=== PATIENT | male | born 1950 | race Caucasian/White ===

== ENCOUNTER → 2019-07-04 10:16 | Outpatient (CLI) | payer MEDICARE, SELFPAY ==
--- NOTE | 2019-07-04 | DI.US.S_ITS ---
PROCEDURE: US ARTERIAL DUPLEX LE BI INDICATIONS: INTERMITTENT CLAUDICATION, ATHEROSCLEROSIS TECHNIQUE: Color and pulse Doppler interrogation was performed of both lower extremity arterial systems, with image documentation. COMPARISON: None. FINDINGS: Right lower extremity: Common femoral artery: 47 cm/sec, with triphasic flow. Deep femoral artery: 157 cm/sec, with monophasic flow. Proximal superficial femoral artery: 49 cm/sec, with biphasic flow. Mid superficial femoral artery: 256 cm/sec, with biphasic flow. Distal superficial femoral artery: 31 cm/sec, with a triphasic flow. Popliteal artery: 38-50 cm/sec, with triphasic flow. Posterior tibial artery: 48-60 cm/sec, with triphasic flow. Anterior tibial artery/dorsalis pedis: 58-71 cm/sec, with triphasic flow. Ulloa-scale imaging description: Mild calcific and soft plaque most prominent at the middle third of the superficial femoral artery on the right. Left lower extremity: Common femoral artery: 312 cm/sec, with monophasic flow. Deep femoral artery: 54 cm/sec, with monophasic flow. Proximal superficial femoral artery: 47 cm/sec, with monophasic flow. Mid superficial femoral artery: 53 cm/sec, with monophasic flow. Distal superficial femoral artery: 29 cm/sec, with monophasic flow. Popliteal artery: 63-226 cm/sec, with monophasic flow. Posterior tibial artery: 30-38 cm/sec, with monophasic flow. Anterior tibial artery/dorsalis pedis: 15-35 cm/sec, with monophasic flow. Ulloa-scale imaging description: Significant soft plaque, most prominent at the proximal popliteal artery on the left. IMPRESSION: Atherosclerotic plaquing on the right is most prominent at the middle third of the superficial femoral artery producing elevated flow velocities up to 2 56 cm/s, biphasic flow morphology. In contrast, on the left, there is prominent elevated flow velocity at the common femoral artery with monophasic flow, and extending below that level monophasic flow persists. 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 The monophasic flow velocities increase focally at proximal aspect of the left popliteal artery, indicating focal high grade stenosis in that area. Depending on clinical status followup by MR angiogram through the aorta and iliac arteries and extending into the lower extremities bilaterally may be warranted, if intervention is anticipated. Dictated by: Riaz San M.D. on 07/04/2019 at 13:35 Approved by: Riaz San M.D. on 07/04/2019 at 13:42
== END ==
PROVIDERS: PCP Family Medicine; Visit Provider Family Medicine
DX: I70.213 Atherosclerosis of native arteries of extremities with intermittent claudication, bilateral legs (principal)
CPT/HCPCS: 93925

== ENCOUNTER 2020-06-21 15:01 | Inpatient (IN) | payer MEDICARE, SELFPAY ==
[2020-06-21] VITALS (12 sets, daily range): BP systolic 129–147; BP diastolic 60–84; PULSE 82–92; RESP 14–24; TEMP 36.7–37.1; O2SAT 100; BMI 25.4
--- NOTE | 2020-06-21 15:20 | DI.RAD.S_ITS ---
PROCEDURE: XR CHEST 1V INDICATIONS: chest pain TECHNIQUE: One view of the chest was acquired. COMPARISON: None. FINDINGS: Surgical changes and devices: None. Lungs and pleura: Lungs are clear. No pleural effusions or pneumothorax. Mediastinum: Mediastinal contours appear normal. Heart size is normal. Bones and chest wall: No suspicious bony lesions. Overlying soft tissues appear unremarkable. IMPRESSION: No acute process. Dictated by: Jnais Martins M.D. on 06/21/2020 at 15:52 Approved by: Janis Martins M.D. on 06/21/2020 at 15:52
--- NOTE | 2020-06-21 15:29 | ED_ITS ---
HPI - Recheck/Abnormal Lab/Rx <TERRY Goddard - Last Filed: 06/21/20 22:43> General Chief Complaint: Recheck/Abnormal Lab/Rx Stated Complaint: needs blood transfusion Time Seen by Provider: 06/21/20 15:08 Source: patient Mode of arrival: Ambulatory Limitations: no limitations History of Present Illness HPI narrative: This is a 70-year-old male, smoker, who has history of GI bleed, diabetes, hyperlipidemia and takes Plavix and baby aspirin for lower extremity arterial problem presents to ED after he received a phone call from Dr. Devine office in [facility] to going to emergency room for an evaluation and treatment for anemia. Patient reports he had dark, tarry stools which started the days ago which has slowed down today. Reports dizziness and shakiness 2 days ago when he tried to shower. Reports has been tired and feeling fatigued as well. Reports had some right-sided chest discomfort at last 2 nights during rest and denies pain at this time. He had similar discomfort when he had anemia past. Reports had colonoscopy 1 year ago in [place] at [facility]. Patient denies abdominal pain or dyspnea. Patient had left lower extremity stent in October without complications. According to patient, last colonoscopy was 1 year ago which was done at [facility] in [place] by Dr. Walker. He was told there was a GI bleed in upper colon. Requested EHR from [facility] on previous colonoscopy procedure and findings. Related Data Home Medications Medication Instructions Recorded Confirmed [place] Essentials 1 cap PO DAILY 06/21/20 06/23/20 atorvastatin 10 mg PO DAILY 06/21/20 06/21/20 clopidogrel 75 mg PO DAILY 06/21/20 06/21/20 metformin 500 mg PO DAILY 06/21/20 06/21/20 varenicline [Chantix] 1 mg PO BID 06/21/20 06/21/20 Allergies Allergy/AdvReac Type Severity Reaction Status Date / Time No Known Drug Allergies Allergy Verified 06/22/20 12:39 Review of Systems <TERRY Goddard - Last Filed: 06/21/20 22:43> Review of Systems Narrative: General: Denies fever, chills, (+) fatigue, (+) malaise, sweats. HEENT: Denies sinus pain, ear pain, sore throat, difficulty swallowing. Respiratory: Denies dyspnea, cough, wheezing, hemoptysis, sputum. Cardiovascular: HPI Gastrointestinal: See HPI : Denies dysuria, frequency, incontinence, hematuria, urinary retention. Musculoskeletal: Denies weakness, joint pain or bony pain. Skin: Denies rash, skin lesions, or other. Neurologic: Denies weakness, headache, numbness, change in speech, confusion, seizures, incoordination. Psychiatric: No concerning psychosocial issues. 12-point review of systems is negative except for those stated above. Patient History <TERRY Goddard - Last Filed: 06/21/20 22:43> Medical History (Updated 06/22/20 @ 00:45 by Ellie Perez MD) Alcohol dependence (Chronic) Angiodysplasia of colon (Acute) Arterial insufficiency (Chronic) Benign neoplasm of ascending colon (Acute) Benign neoplasm of cecum (Acute) Diverticulosis (Acute) GI bleed (Acute) Hemorrhoids (Acute) Melena (Acute) Rectal bleed (Acute) Rectal polyp (Acute) Tobacco dependence (Chronic) Surgical History (Updated 06/21/20 @ 22:32 by TERRY Barajas) H/O colonoscopy (Acute) H/O endoscopy (Acute) History of back surgery (Acute) History of knee replacement (Acute) History of shoulder surgery (Acute) Peripheral vascular angioplasty status with implants and grafts (Chronic) Family History (Updated 06/21/20 @ 22:31 by TERRY Barajas) Father CVA (cerebral vascular accident) Myocardial infarct Mother Diabetes mellitus Social History household members: spouse Smoking Status: Current every day smoker Smoking Status: Current every day smoker tobacco type: cigarettes alcohol intake frequency: 0-2 drinks per day Substance Use Type: does not use Exam <TERRY Goddard - Last Filed: 06/21/20 22:43> Narrative Exam Narrative: GEN: Alert, oriented x 3, well appearing and nourished, and in no acute distress. Head: Normal cephalic, atraumatic. No scalp or temporal tenderness, palpable mass or rash. EYES: Pupils are equal, round, and reactive to light and accommodation. Extraocular muscles are intact bilaterally. There is no subconjunctival hemorrhage, exudate and sclera non-icteric. Pale palpebral conjunctiva. ENT: Hearing grossly intact. Nose without bleeding, purulent discharge or deviation. Mucous membrane moist, pale, no mucosal lesion. Throat without erythema, tonsillar hypertrophy or exudate. Uvula in midline, airway patent. Neck: Trachea in midline. No JVD, non-tender without lymphadenopathy. No masses or thyroid megaly. Supple, non-tender and no meningeal signs. CARDIAC: Normal regular rate and rhythm with murmurs. No gallops, or rubs. No chest wall tenderness. No peripheral edema, cyanosis or pallor. Capillary refill is less than 2 seconds. RESPIRATORY: Faint expiratory wheezing in right lobes. Occasional moist cough. No rales, or rhonchi. No stridor, respiratory distress, increase work of damion thing, or accessary muscle used. ABD: Abdomen soft, nontender and non-distended. No guarding or rebound tenderness to palpate. Bowel sounds are normal in all 4 quadrants. There is no palpable masses or organomegaly. EXT: Full painless ROM of all extremities with no loss of sensation, strength, effusion or edema. SKIN: Warm, dry, pale. No erythema, lesions or rash over visible areas. BACK: Nontender without deformity or crepitance. No flank tenderness. NEUROLOGICAL: Alert and oriented to place, time and person. Sensation and motor function intact bilaterally. No facial droops, dysphasia. PSYCHIATRIC: Good judgement and reason, without hallucinations, abnormal affect or abnormal behaviors during the examination. Patient is not suicidal. Initial Vital Signs Initial Vital Signs: Vital Signs Temperature 98.7 F 06/21/20 15:18 Pulse Rate 92 H 06/21/20 15:18 Respiratory Rate 16 06/21/20 15:18 Blood Pressure 139/66 06/21/20 15:18 Pulse Oximetry 100 06/21/20 15:18 <Danelle Portillo DO - Last Filed: 06/23/20 08:30> Initial Vital Signs Initial Vital Signs: Vital Signs Temperature 98.7 F 06/21/20 15:18 Pulse Rate 92 H 06/21/20 15:18 Respiratory Rate 16 06/21/20 15:18 Blood Pressure 139/66 06/21/20 15:18 Pulse Oximetry 100 06/21/20 15:18 Scores <TERRY Goddard - Last Filed: 06/21/20 22:43> GCS [place] coma scale eye opening: Spontaneous [place] coma scale verbal response: Orientated [place] coma scale motor response: Obey commands Regan coma scale total score: 15 Course <Darren DavisTERRY - Last Filed: 06/21/20 22:43> Course Course Narrative: Received critical result on H&H=4.6/15.6. Added 2 PRBC tra nsfusion order. Positive hemoccult Decision to Admit Date: 06/21/20 Decision to Admit time: 15:46 Orders Ordered: Acetaminophen (Tylenol) 650 mg PO Q6HR PRN PRN Reason: Fever/Mild Pain (1-3) Last Admin: 06/23/20 07:02 Dose: 650 mg Documented by: Admin: 06/22/20 21:21 Dose: 650 mg Documented by: IFTIKHAR Al Hydrox/Mg Hydrox/Simethicone (Maalox Plus) 30 ml PO Q6HR PRN PRN Reason: Dyspepsia Amoxicillin (Trimox) 1,000 mg PO BID [facility] Last Admin: 06/22/20 21:21 Dose: 1,000 mg Documented by: IFTIKHAR Benzocaine (Cepacol Lozenge) 1 each PO Q1HR PRN PRN Reason: Sore Throat Last Admin: 06/22/20 23:39 Dose: 1 each Documented by: Admin: 06/22/20 21:21 Dose: 1 each Documented by: Admin: 06/22/20 19:24 Dose: 1 each Documented by: IFTIKHAR Calcium Carbonate (Tums) 1,000 mg PO Q4HR PRN PRN Reason: Dyspepsia Clarithromycin (Biaxin) 500 mg PO BID [facility] Last Admin: 06/22/20 21:22 Dose: Not Given Documented by: IFTIKHAR Dextrose (D50w) 25 gm IV PRN PRN PRN Reason: Hypoglycemia Sodium Chloride (Normal Saline 0.9%) 1,000 mls @ 84 mls/hr IV CONT [facility] Last Admin: 06/23/20 03:20 Dose: 84 mls/hr Documented by: Infusion: 06/23/20 03:12 Dose: 84 mls/hr Documented by: Admin: 06/22/20 15:17 Dose: 84 mls/hr Documented by: Infusion: 06/22/20 15:17 Dose: 84 mls/hr Documented by: Admin: 06/22/20 03:49 Dose: 84 mls/hr Documented by: SPRING Insulin Aspart (Novolog Flexpen) 0 unit SUBCUT ACHS [facility]; Protocol Last Admin: 06/22/20 21:22 Dose: Not Given Documented by: Admin: 06/22/20 17:21 Dose: 1 unit Documented by: IFTIKHAR Cosigned by: EVELYN Admin: 06/22/20 13:16 Dose: Not Given Documented by: Admin: 06/22/20 07:47 Dose: 1 unit Documented by: VINOD Cosigned by: PILY Admin: 06/21/20 21:13 Dose: Not Given Documented by: IFTIKHAR Metronidazole (Metronidazole) 500 mg PO BID [facility] Last Admin: 06/22/20 21:22 Dose: 500 mg Documented by: IFTIKHAR Naloxone HCl (Narcan) 0.2 mg IV Q2MIN PRN PRN Reason: Opiate Reversal Ondansetron HCl (Zofran) 4 mg IV Q8HR PRN PRN Reason: Nausea And Vomiting Pantoprazole Sodium (Protonix) 40 mg PO 0700,2100 [facility] Last Admin: 06/23/20 06:49 Dose: 40 mg Documented by: Admin: 06/22/20 23:19 Dose: Not Given Documented by: IFTIKHAR Promethazine HCl (Phenadoz) 12.5 mg [place] Q6HR PRN PRN Reason: Nausea And Vomiting Discontinued Medications Sodium Chloride (Normal Saline 0.9%) 500 mls @ 21 mls/hr IV CONT [facility] Last Infusion: 06/21/20 17:42 Dose: 0 mls/hr Documented by: Infusion: 06/21/20 17:25 Dose: 0 mls/hr Documented by: Admin: 06/21/20 16:49 Dose: 21 mls/hr Documented by: KAYLA Pantoprazole Sodium 80 mg/ (Sodium Chloride) 100 mls @ 10 mls/hr IV CONT [facility] Last Admin: 06/22/20 15:17 Dose: 8 mg/hr, 10 mls/hr Documented by: Infusion: 06/22/20 15:17 Dose: 8 mg/hr, 10 mls/hr Documented by: Admin: 06/22/20 12:13 Dose: 8 mg/hr, 10 mls/hr Documented by: Infusion: 06/22/20 12:11 Dose: 8 mg/hr, 10 mls/hr Documented by: Admin: 06/22/20 02:11 Dose: 8 mg/hr, 10 mls/hr Documented by: Infusion: 06/22/20 02:11 Dose: 8 mg/hr, 10 mls/hr Documented by: GERMANRENJOCELYN Infusion: 06/21/20 23:00 Dose: 8 mg/hr, 10 mls/hr Documented by: Infusion: 06/21/20 17:42 Dose: 0 mg/hr, 0 mls/hr Documented by: Admin: 06/21/20 16:49 Dose: 8 mg/hr, 10 mls/hr Documented by: KAYLA Lactated Ringer's (Lactated Ringers) 1,000 mls @ 42 mls/hr IV CONT [facility] Last Admin: 06/22/20 23:16 Dose: Not Given Documented by: URBAN Magnesium Hydroxide (Milk Of Magnesia) 30 ml PO DAILY PRN PRN Reason: Constipation Pantoprazole Sodium (Protonix) 40 mg IV NOW ONE Stop: 06/21/20 15:21 Last Admin: 06/21/20 15:47 Dose: 40 mg Documented by: MARIBELL Consultations Consultation #1: Dr. Perez for GI Bleed-scope Time: 16:00 Consultation #2: Dr. Ruff consulted for admission for GIB and informed slightly elevated Troponin, normal EKG Time: 16:08 Vital Signs Vital signs: Vital Signs - 8 hr 06/21/20 15:18 06/21/20 16:27 Temperature 98.7 F 98.7 F Pulse Rate 92 H 86 Respiratory Rate 16 14 Blood Pressure 139/66 130/64 Pulse Oximetry 100 <Danelle Portillo DO - Last Filed: 06/23/20 08:30> Orders Ordered: Acetaminophen (Tylenol) 650 mg PO Q6HR PRN PRN Reason: Fever/Mild Pain (1-3) Last Admin: 06/23/20 07:02 Dose: 650 mg Documented by: Admin: 06/22/20 21:21 Dose: 650 mg Documented by: IFTIKHAR Al Hydrox/Mg Hydrox/Simethicone (Maalox Plus) 30 ml PO Q6HR PRN PRN Reason: Dyspepsia Amoxicillin (Trimox) 1,000 mg PO BID [facility] Last Admin: 06/22/20 21:21 Dose: 1,000 mg Documented by: IFTIKHAR Benzocaine (Cepacol Lozenge) 1 each PO Q1HR PRN PRN Reason: Sore Throat Last Admin: 06/22/20 23:39 Dose: 1 each Documented by: Admin: 06/22/20 21:21 Dose: 1 each Documented by: Admin: 06/22/20 19:24 Dose: 1 each Documented by: IFTIKHAR Calcium Carbonate (Tums) 1,000 mg PO Q4HR PRN PRN Reason: Dyspepsia Clarithromycin (Biaxin) 500 mg PO BID [facility] Last Admin: 06/22/20 21:22 Dose: Not Given Documented by: IFTIKHAR Dextrose (D50w) 25 gm IV PRN PRN PRN Reason: Hypoglycemia Sodium Chloride (Normal Saline 0.9%) 1,000 mls @ 84 mls/hr IV CONT [facility] Last Admin: 06/23/20 03:20 Dose: 84 mls/hr Documented by: Infusion: 06/23/20 03:12 Dose: 84 mls/hr Documented by: Admin: 06/22/20 15:17 Dose: 84 mls/hr Documented by: Infusion: 06/22/20 15:17 Dose: 84 mls/hr Documented by: Admin: 06/22/20 03:49 Dose: 84 mls/hr Documented by: SPRING Insulin Aspart (Novolog Flexpen) 0 unit SUBCUT [facility]; Protocol Last Admin: 06/22/20 21:22 Dose: Not Given Documented by: Admin: 06/22/20 17:21 Dose: 1 unit Documented by: IFTIKHAR Cosigned by: EVELYN Admin: 06/22/20 13:16 Dose: Not Given Documented by: Admin: 06/22/20 07:47 Dose: 1 unit Documented by: VINOD Cosigned by: PILY Admin: 06/21/20 21:13 Dose: Not Given Documented by: IFTIKHAR Metronidazole (Metronidazole) 500 mg PO BID Count includes the [facility] Admin: 06/22/20 21:22 Dose: 500 mg Documented by: IFTIKHAR Naloxone HCl (Narcan) 0.2 mg IV Q2MIN PRN PRN Reason: Opiate Reversal Ondansetron HCl (Zofran) 4 mg IV Q8HR PRN PRN Reason: Nausea And Vomiting Pantoprazole Sodium (Protonix) 40 mg PO 0700,2100 [facility] Last Admin: 06/23/20 06:49 Dose: 40 mg Documented by: Admin: 06/22/20 23:19 Dose: Not Given Documented by: IFTIKHAR Promethazine HCl (Phenadoz) 12.5 mg [place] Q6HR PRN PRN Reason: Nausea And Vomiting Discontinued Medications Sodium Chloride (Normal Saline 0.9%) 500 mls @ 21 mls/hr IV CONT Count includes the [facility] Infusion: 06/21/20 17:42 Dose: 0 mls/hr Documented by: Infusion: 06/21/20 17:25 Dose: 0 mls/hr Documented by: Admin: 06/21/20 16:49 Dose: 21 mls/hr Documented by: KAYLA Pantoprazole Sodium 80 mg/ (Sodium Chloride) 100 mls @ 10 mls/hr IV CONT Count includes the [facility] Admin: 06/22/20 15:17 Dose: 8 mg/hr, 10 mls/hr Documented by: Infusion: 06/22/20 15:17 Dose: 8 mg/hr, 10 mls/hr Documented by: Admin: 06/22/20 12:13 Dose: 8 mg/hr, 10 mls/hr Documented by: Infusion: 06/22/20 12:11 Dose: 8 mg/hr, 10 mls/hr Documented by: Admin: 06/22/20 02:11 Dose: 8 mg/hr, 10 mls/hr Documented by: Infusion: 06/22/20 02:11 Dose: 8 mg/hr, 10 mls/hr Documented by: GERMANRENJOCELYN Infusion: 06/21/20 23:00 Dose: 8 mg/hr, 10 mls/hr Documented by: Infusion: 06/21/20 17:42 Dose: 0 mg/hr, 0 mls/hr Documented by: Admin: 06/21/20 16:49 Dose: 8 mg/hr, 10 mls/hr Documented by: KAYLA Lactated Ringer's (Lactated Ringers) 1,000 mls @ 42 mls/hr IV CONT [facility] Last Admin: 06/22/20 23:16 Dose: Not Given Documented by: URBAN Magnesium Hydroxide (Milk Of Magnesia) 30 ml PO DAILY PRN PRN Reason: Constipation Pantoprazole Sodium (Protonix) 40 mg IV NOW ONE Stop: 06/21/20 15:21 Last Admin: 06/21/20 15:47 Dose: 40 mg Documented by: MARIBELL Vital Signs Vital signs: Vital Signs - 8 hr 06/21/20 15:18 06/21/20 16:27 Temperature 98.7 F 98.7 F Pulse Rate 92 H 86 Respiratory Rate 16 14 Blood Pressure 139/66 130/64 Pulse Oximetry 100 MDM - Recheck/Abnormal Lab/Rx <TERRY Goddard - Last Filed: 06/21/20 22:43> Differential Diagnosis Differential diagnosis: Likely other (Anemia, GI bleed) Medical Records Attestation: I reviewed the patient's medical records. Lab Data Attestation: I reviewed the patient's lab results. Result diagrams: 06/23/20 04:38 06/23/20 04:38 Labs: Lab Results 06/21/20 06/21/20 06/21/20 Range/Units 15:26 15:26 15:26 WBC 6.4 (4.5-11.0) X10^3/uL RBC 2.34 L (4.5-5.9) X10^6/uL Hgb 4.6 L* (13.5-17.5) g/dL Hct 15.6 L* (41-53) % MCV 66.5 L (80-100) fL MCH 19.5 L (26-34) PG MCHC 29.4 L (30-36) % RDW 21.2 H (11.6-14.8) % Plt Count 141 L (150-400) X10^3/uL Neut % (Auto) 66.2 (50-75) % Lymph % (Auto) 15.8 L (25-40) % Stevens % (Auto) 13.9 (3-14) % Eos % (Auto) 2.8 (2-4) % Baso % (Auto) 1.3 (0-2) % Neut # (Auto) 4300 (1025-7795) /uL Lymph # (Auto) 1000 L (7602-7060) /uL Stevens # (Auto) 900 (0-900) /uL Eos # (Auto) 200 (0-450) /uL Baso # (Auto) 100 (0-100) /uL RBC Morphology Not Reportable Hypochromasia 1+ H Anisocytosis 3+ H PT 14.8 H (10.1-12.7) SECONDS INR 1.3 (0.9-1.3) APTT 28 (26.4-36.2) SECONDS Sodium 137 (137-145) mmol/L Potassium 4.0 (3.4-5.1) mmol/L Chloride 105 (98-107) mmol/L Carbon Dioxide 24 (22-32) mmol/L BUN 36 H (9-20) mg/dL Creatinine 1.06 (0.66-1.25) mg/dL Estimated GFR > 60.0 (>60) mL/min BUN/Creatinine Ratio 34.0 H (6-22) Glucose 150 H (80-110) mg/dL Hemoglobin A1c Calcium 8.9 (8.4-10.2) mg/dL Total Bilirubin 0.6 (0.2-1.3) mg/dL AST 47 (17-59) IU/L ALT 32 (<50) IU/L Alkaline Phosphatase 66 (38-126) U/L Total Creatine Kinase (55-170) U/L CK-MB (CK-2) CK-MB (CK-2) Rel Index Troponin I (0.01-0.034) ng/mL Total Protein 6.9 (6.3-8.2) g/dL Albumin 3.9 (3.5-5.0) g/dL Globulin 3.0 (1.7-4.1) g/dL Albumin/Globulin Ratio 1.3 (1.0-2.8) COVID-19 PCR (Negative) Blood Type Antibody Screen Crossmatch 06/21/20 06/21/20 06/21/20 Range/Units 15:26 15:26 15:26 WBC (4.5-11.0) X10^3/uL RBC (4.5-5.9) X10^6/uL Hgb (13.5-17.5) g/dL Hct (41-53) % MCV (80-100) fL MCH (26-34) PG MCHC (30-36) % RDW (11.6-14.8) % Plt Count (150-400) X10^3/uL Neut % (Auto) (50-75) % Lymph % (Auto) (25-40) % Stevens % (Auto) (3-14) % Eos % (Auto) (2-4) % Baso % (Auto) (0-2) % Neut # (Auto) (7324-4050) /uL Lymph # (Auto) (9424-4043) /uL Stevens # (Auto) (0-900) /uL Eos # (Auto) (0-450) /uL Baso # (Auto) (0-100) /uL RBC Morphology Hypochromasia Anisocytosis PT (10.1-12.7) SECONDS INR (0.9-1.3) APTT (26.4-36.2) SECONDS Sodium (137-145) mmol/L Potassium (3.4-5.1) mmol/L Chloride (98-107) mmol/L Carbon Dioxide (22-32) mmol/L BUN (9-20) mg/dL Creatinine (0.66-1.25) mg/dL Estimated GFR (>60) mL/min BUN/Creatinine Ratio (6-22) Glucose (80-110) mg/dL Hemoglobin A1c TNP Calcium (8.4-10.2) mg/dL Total Bilirubin (0.2-1.3) mg/dL AST (17-59) IU/L ALT (<50) IU/L Alkaline Phosphatase (38-126) U/L Total Creatine Kinase 36 L (55-170) U/L CK-MB (CK-2) TNP CK-MB (CK-2) Rel Index TNP Troponin I 0.043 H (0.01-0.034) ng/mL Total Protein (6.3-8.2) g/dL Albumin (3.5-5.0) g/dL Globulin (1.7-4.1) g/dL Albumin/Globulin Ratio (1.0-2.8) COVID-19 PCR (Negative) Blood Type A Positive Antibody Screen Negative Crossmatch See Detail 06/21/20 Range/Units 16:09 WBC (4.5-11.0) X10^3/uL RBC (4.5-5.9) X10^6/uL Hgb (13.5-17.5) g/dL Hct (41-53) % MCV (80-100) fL MCH (26-34) PG MCHC (30-36) % RDW (11.6-14.8) % Plt Count (150-400) X10^3/uL Neut % (Auto) (50-75) % Lymph % (Auto) (25-40) % Stevens % (Auto) (3-14) % Eos % (Auto) (2-4) % Baso % (Auto) (0-2) % Neut # (Auto) (7410-5859) /uL Lymph # (Auto) (1143-3348) /uL Stevens # (Auto) (0-900) /uL Eos # (Auto) (0-450) /uL Baso # (Auto) (0-100) /uL RBC Morphology Hypochromasia Anisocytosis PT (10.1-12.7) SECONDS INR (0.9-1.3) APTT (26.4-36.2) SECONDS Sodium (137-145) mmol/L Potassium (3.4-5.1) mmol/L Chloride (98-107) mmol/L Carbon Dioxide (22-32) mmol/L BUN (9-20) mg/dL Creatinine (0.66-1.25) mg/dL Estimated GFR (>60) mL/min BUN/Creatinine Ratio (6-22) Glucose (80-110) mg/dL Hemoglobin A1c Calcium (8.4-10.2) mg/dL Total Bilirubin (0.2-1.3) mg/dL AST (17-59) IU/L ALT (<50) IU/L Alkaline Phosphatase (38-126) U/L Total Creatine Kinase (55-170) U/L CK-MB (CK-2) CK-MB (CK-2) Rel Index Troponin I (0.01-0.034) ng/mL Total Protein (6.3-8.2) g/dL Albumin (3.5-5.0) g/dL Globulin (1.7-4.1) g/dL Albumin/Globulin Ratio (1.0-2.8) COVID-19 PCR Negative (Negative) Blood Type Antibody Screen Crossmatch Point of Care Testing Stool Occult Blood Positive Urine Dip Bedside Urine Glucose Negative Bedside Urine Bilirubin - Negative Bedside Urine Ketone - Negative Urine Specific Monitor 1.015 Bedside Urine Occult Blood - Negative Bedside Urine pH 6.0 Bedside Urine Protein - Negative Bedside Urine Urobilinogen - Negative Bedside Urine Nitrite - Negative Bedside Urine Leukocytes - Negative Esterase Imaging Data Chest x-ray: Radiologist's Impression: [address] [id number] XRay Report Signed Patient: Venancio Osullivan CMR#: [id number] : 1950Acct:[id number] Age/Sex: 70 / MDate of Service: 06/21/20 Loc: ED Accession Number: [id number] Procedure: XR chest 1V Ordering Provider: Darren Cannon PROCEDURE: XR CHEST 1V INDICATIONS: chest pain TECHNIQUE: One view of the chest was acquired. COMPARISON: None. FINDINGS: Surgical changes and devices: None. Lungs and pleura: Lungs are clear. No pleural effusions or pneumothorax. Mediastinum: Mediastinal contours appear normal. Heart size is normal. Bones and chest wall: No suspicious bony lesions. Overlying soft tissues appear unremarkable. IMPRESSION: No acute process. Dictated by: Janis Martins M.D. on 06/21/2020 at 15:52 Approved by: Janis Martins M.D. on 06/21/2020 at 15:52 ECG Data Attestation: I personally reviewed and interpreted this ECG as follows: Prior ECG tracings: not available for review Interpretation: Sinus rhythm rate at 93. Normal axis. [place] interval 186, QRS duration 72, QT/QTC 384/[address] changes MDM Narrative Medical decision making narrative: This is a 70-year-old gentleman who presents to ED with tarry stool for last 3 days and dizziness. Patient is currently taking Plavix and baby aspirin for peripheral arterial disease and stent placement in bilateral lower extremities. Patient has history of GI bleed in the past and had colonoscopy and endoscopy done about a year ago and old EHR requested. Today's abdominal physical exam is unremarkable but pale in color. Positive Hemoccult result (RN Laura Gallegos stand-by). He was referred to ED by his PCP, Dr. Devine. H/H is 4.6/15.6. CBC also shows decreased MCV, MCH, MCHC, PLT of 141 and elevated RDW and the patient may have slow/chronic GI bleed and anemia and not as acute for last 3 days. Elevated PT of 14.8. Elevated BUN of 36 which is likely from GIB. EKG shows sinus rhythm rate at [address] changes. Patient had right- sided chest discomfort and at rest during last 2 nights and resolved in the morning. Troponin I is 0.043 which likely due to increased demand from anemia. The patient was medicated Protonix bolus and drip and started transfusion 2 units with packed RBC after patient provided written consent. Dr. Perez was consulted for scope to find the location/source of bleeding and intervention. Consulted Dr. Ruff for admissionn for transfusion and treatment for anemia and cardiac work up and she kindly accepted the patient's care. Patient informed pending admission to the hospital and treatment and he and spouse verbalized understanding and in agreement with treatment plan. <Danelle Portillo, DO - Last Filed: 06/23/20 08:30> Lab Data Labs: Lab Results 06/21/20 06/21/20 06/21/20 Range/Units 15:26 15:26 15:26 WBC 6.4 (4.5-11.0) X10^3/uL RBC 2.34 L (4.5-5.9) X10^6/uL Hgb 4.6 L* (13.5-17.5) g/dL Hct 15.6 L* (41-53) % MCV 66.5 L (80-100) fL MCH 19.5 L (26-34) PG MCHC 29.4 L (30-36) % RDW 21.2 H (11.6-14.8) % Plt Count 141 L (150-400) X10^3/uL Neut % (Auto) 66.2 (50-75) % Lymph % (Auto) 15.8 L (25-40) % Stevens % (Auto) 13.9 (3-14) % Eos % (Auto) 2.8 (2-4) % Baso % (Auto) 1.3 (0-2) % Neut # (Auto) 4300 (0287-6059) /uL Lymph # (Auto) 1000 L (0548-8611) /uL Stevens # (Auto) 900 (0-900) /uL Eos # (Auto) 200 (0-450) /uL Baso # (Auto) 100 (0-100) /uL RBC Morphology Not Reportable Hypochromasia 1+ H Anisocytosis 3+ H PT 14.8 H (10.1-12.7) SECONDS INR 1.3 (0.9-1.3) APTT 28 (26.4-36.2) SECONDS Sodium 137 (137-145) mmol/L Potassium 4.0 (3.4-5.1) mmol/L Chloride 105 (98-107) mmol/L Carbon Dioxide 24 (22-32) mmol/L BUN 36 H (9-20) mg/dL Creatinine 1.06 (0.66-1.25) mg/dL Estimated GFR > 60.0 (>60) mL/min BUN/Creatinine Ratio 34.0 H (6-22) Glucose 150 H (80-110) mg/dL Hemoglobin A1c Calcium 8.9 (8.4-10.2) mg/dL Total Bilirubin 0.6 (0.2-1.3) mg/dL AST 47 (17-59) IU/L ALT 32 (<50) IU/L Alkaline Phosphatase 66 (38-126) U/L Total Creatine Kinase (55-170) U/L CK-MB (CK-2) CK-MB (CK-2) Rel Index Troponin I (0.01-0.034) ng/mL Total Protein 6.9 (6.3-8.2) g/dL Albumin 3.9 (3.5-5.0) g/dL Globulin 3.0 (1.7-4.1) g/dL Albumin/Globulin Ratio 1.3 (1.0-2.8) COVID-19 PCR (Negative) Blood Type Antibody Screen Crossmatch 06/21/20 06/21/20 06/21/20 Range/Units 15:26 15:26 15:26 WBC (4.5-11.0) X10^3/uL RBC (4.5-5.9) X10^6/uL Hgb (13.5-17.5) g/dL Hct (41-53) % MCV (80-100) fL MCH (26-34) PG MCHC (30-36) % RDW (11.6-14.8) % Plt Count (150-400) X10^3/uL Neut % (Auto) (50-75) % Lymph % (Auto) (25-40) % Stevens % (Auto) (3-14) % Eos % (Auto) (2-4) % Baso % (Auto) (0-2) % Neut # (Auto) (0672-1137) /uL Lymph # (Auto) (4256-4750) /uL Stevens # (Auto) (0-900) /uL Eos # (Auto) (0-450) /uL Baso # (Auto) (0-100) /uL RBC Morphology Hypochromasia Anisocytosis PT (10.1-12.7) SECONDS INR (0.9-1.3) APTT (26.4-36.2) SECONDS Sodium (137-145) mmol/L Potassium (3.4-5.1) mmol/L Chloride (98-107) mmol/L Carbon Dioxide (22-32) mmol/L BUN (9-20) mg/dL Creatinine (0.66-1.25) mg/dL Estimated GFR (>60) mL/min BUN/Creatinine Ratio (6-22) Glucose (80-110) mg/dL Hemoglobin A1c TNP Calcium (8.4-10.2) mg/dL Total Bilirubin (0.2-1.3) mg/dL AST (17-59) IU/L ALT (<50) IU/L Alkaline Phosphatase (38-126) U/L Total Creatine Kinase 36 L (55-170) U/L CK-MB (CK-2) TNP CK-MB (CK-2) Rel Index TNP Troponin I 0.043 H (0.01-0.034) ng/mL Total Protein (6.3-8.2) g/dL Albumin (3.5-5.0) g/dL Globulin (1.7-4.1) g/dL Albumin/Globulin Ratio (1.0-2.8) COVID-19 PCR (Negative) Blood Type A Positive Antibody Screen Negative Crossmatch See Detail 06/21/20 Range/Units 16:09 WBC (4.5-11.0) X10^3/uL RBC (4.5-5.9) X10^6/uL Hgb (13.5-17.5) g/dL Hct (41-53) % MCV (80-100) fL MCH (26-34) PG MCHC (30-36) % RDW (11.6-14.8) % Plt Count (150-400) X10^3/uL Neut % (Auto) (50-75) % Lymph % (Auto) (25-40) % Stevens % (Auto) (3-14) % Eos % (Auto) (2-4) % Baso % (Auto) (0-2) % Neut # (Auto) (6026-9355) /uL Lymph # (Auto) (3265-1513) /uL Stevens # (Auto) (0-900) /uL Eos # (Auto) (0-450) /uL Baso # (Auto) (0-100) /uL RBC Morphology Hypochromasia Anisocytosis PT (10.1-12.7) SECONDS INR (0.9-1.3) APTT (26.4-36.2) SECONDS Sodium (137-145) mmol/L Potassium (3.4-5.1) mmol/L Chloride (98-107) mmol/L Carbon Dioxide (22-32) mmol/L BUN (9-20) mg/dL Creatinine (0.66-1.25) mg/dL Estimated GFR (>60) mL/min BUN/Creatinine Ratio (6-22) Glucose (80-110) mg/dL Hemoglobin A1c Calcium (8.4-10.2) mg/dL Total Bilirubin (0.2-1.3) mg/dL AST (17-59) IU/L ALT (<50) IU/L Alkaline Phosphatase (38-126) U/L Total Creatine Kinase (55-170) U/L CK-MB (CK-2) CK-MB (CK-2) Rel Index Troponin I (0.01-0.034) ng/mL Total Protein (6.3-8.2) g/dL Albumin (3.5-5.0) g/dL Globulin (1.7-4.1) g/dL Albumin/Globulin Ratio (1.0-2.8) COVID-19 PCR Negative (Negative) Blood Type Antibody Screen Crossmatch Point of Care Testing Stool Occult Blood Positive Urine Dip Bedside Urine Glucose Negative Bedside Urine Bilirubin - Negative Bedside Urine Ketone - Negative Urine Specific Monitor 1.015 Bedside Urine Occult Blood - Negative Bedside Urine pH 6.0 Bedside Urine Protein - Negative Bedside Urine Urobilinogen - Negative Bedside Urine Nitrite - Negative Bedside Urine Leukocytes - Negative Esterase Discharge Plan Departure Patient Disposition: Admitted as Observation Clinical Impression: Acute GI bleeding Anemia Qualifiers: Anemia type: unspecified type Qualified Code(s): D64.9 - Anemia, unspecified Discharge Date/Time: 06/21/20 17:45 Admit Date/Time: 06/21/20 16:31 Admit Provider: Sarah Ruff <Danelle Portillo DO - Last Filed: 06/23/20 08:30> Cosign ED Attending Beboature Attestation: I was immediately available in the department for consultation. Documentation has been reviewed. I agree with assessment and plan.
[2020-06-21 15:42] LABS: Add Manual Diff / Slide Review NO; Basophils Absolute Auto 100 /uL (0-100); Basophils Percent Auto 1.3 % (0-2); Eosinophils Absolute Auto 200 /uL (0-450); Eosinophils Percent Auto 2.8 % (2-4); Lymphocytes Absolute Auto 1000 /uL (1100-4500); Lymphocytes Percent Auto 15.8 % (25-40); Mean Corpuscular HGB Conc 29.4 % (30-36); Mean Corpuscular Hemoglobin 19.5 PG (26-34); Mean Corpuscular Volume 66.5 fL (80-100); Monocytes Absolute Auto 900 /uL (0-900); Monocytes Percent Auto 13.9 % (3-14); Neutrophils Absolute Auto 4300 /uL (1500-7000); Neutrophils Percent Auto 66.2 % (50-75); Platelet Count 141 X10^3/uL (150-400); Red Blood Cell Count 2.34 X10^6/uL (4.5-5.9); Red Cell Distribution Width 21.2 % (11.6-14.8); White Blood Cell Count 6.4 X10^3/uL (4.5-11.0)
[2020-06-21 15:44] LABS: Hematocrit 15.6 % (41-53); Hemoglobin 4.6 g/dL (13.5-17.5)
[2020-06-21 15:45] LABS: INR 1.3 (0.9-1.3); Prothrombin Time 14.8 SECONDS (10.1-12.7)
[2020-06-21 15:47] LABS: PTT Partial Thromboplastin Tim 28 SECONDS (26.4-36.2)
[2020-06-21] MEDS: PANTOPRAZOLE 40 MG VIAL IV (15:47)
[2020-06-21 15:49] LABS: Alanine Aminotransferase 32 IU/L (<50); Albumin 3.9 g/dL (3.5-5.0); Albumin Globulin Ratio 1.3 (1.0-2.8); Alkaline Phosphatase 66 U/L (38-126); Aspartate Aminotransferase 47 IU/L (17-59); Bilirubin Total 0.6 mg/dL (0.2-1.3); Blood Urea Nitrogen 36 mg/dL (9-20); Calcium 8.9 mg/dL (8.4-10.2); Carbon Dioxide 24 mmol/L (22-32); Chloride 105 mmol/L (98-107); Creatine Kinase 36 U/L (55-170); Estimated Glomerular Filt Rate > 60.0 mL/min (>60); Glucose 150 mg/dL (80-110); HEMOLYSIS < 15 (0-50); Sodium 137 mmol/L (137-145); Total Protein 6.9 g/dL (6.3-8.2)
--- NOTE | 2020-06-21 15:55 | PC.NURSE ---
blood consent signed/in chart
[2020-06-21 16:00] LABS: Troponin I 0.043 ng/mL (0.01-0.034)
[2020-06-21 16:06] LABS: Anisocytosis 3+; Hypochromasia 1+
[2020-06-21] MEDS: SODIUM CHLORIDE 0.9% 500 ML 21 ML IV (16:49)
[2020-06-21] MEDS: PANTOPRAZOLE 80 MG in SODIUM CHLORIDE 0.9% 100 ML 10 ML IV (16:49)
--- NOTE | 2020-06-21 17:43 | PC.NURSE ---
blood infusing during discharge
[2020-06-21 17:50] LABS: COVID19 -Nasal RAPID Negative (Negative)
--- NOTE | 2020-06-21 20:02 | P.CONS_ITS ---
History of Present Illness Consult details Date Patient Seen: 06/21/20 Time Patient Seen: 20:03 Chief complaint: needs blood transfusion Reason for consult: GI bleed Requesting provider: Darren Cannon Narrative: This is a 70 yo man with history of smoking, lower GI bleed one year ago, colonoscopy one year ago with cauterization of AVM, HLD, DM2, claudication on plavix and ASA, who has had several days of weakness and dark stool. He had labs drawn by his PCP on [place], and was found to be severely anemic. His hgb here in the ER was 4.6. He denies any abdominal pain or bright red bleeding per rectum. He denies taking significant amounts of NSAIDs, but he does take an aspirin daily and he is on Plavix. He has taken Aleve for the last few days due to some body aches. He says he does not routinely take a significant amount of ibuprofen or Aleve. Pt reports has been tired and feeling fatigued as well. Reports had some right-sided chest discomfort at last 2 nights during rest and denies pain at this time. He had similar discomfort when he had anemia past. Reports had colonoscopy 1 year ago in [place] at [facility]. Patient denies abdominal pain or dyspnea. Patient had left lower extremity stent in October without complications. ROS: Narrative: General: Denies fever, chills, (+) fatigue, (+) malaise, sweats. HEENT: Denies sinus pain, ear pain, sore throat, difficulty swallowing. Respiratory: Denies dyspnea, cough, wheezing, hemoptysis, sputum. Cardiovascular: Right-sided chest pain, denies cardiac type pain Gastrointestinal: See HPI : Denies dysuria, frequency, incontinence, hematuria, urinary retention. Musculoskeletal: Denies weakness, joint pain or bony pain. Skin: Denies rash, skin lesions, or other. Neurologic: Denies weakness, headache, numbness, change in speech, confusion, seizures, incoordination. Psychiatric: No concerning psychosocial issues. Thirteen system review is otherwise negative other than as mentioned below and in HPI. PE: GENERAL: Alert, comfortable. Appears stated age. Answers questions promptly and appropriately. Vital signs noted. HENT: Normocephalic, atraumatic. Hearing intact. EYES: Conjunctiva pink, sclera white, no periorbital swelling. CARDIOVASCULAR: Regular rate. No pedal edema. RESPIRATORY: Non-tachypneic, breathing comfortably on room air. GASTROINTESTINAL: Abdomen soft and non-distended; no tenderness in the epigastrium or lower abdomen GENITALURINARY: No flank tenderness. MUSCULOSKELETAL: Equal tone and mass bilaterally. SKIN: Warm, dry, soft, appropriate color for ethnicity. No other lesions, rashes, or wounds. NEURO: Alert and Oriented X 3. No gross sensory deficits, or cognitive issues. PSYCH: Appropriate affect and mood. Meds Home Medications and Allergies Home Medications Medication Instructions Recorded Confirmed Type [place] Essentials 06/21/20 History atorvastatin 10 mg PO DAILY 06/21/20 06/21/20 History clopidogrel 75 mg PO DAILY 06/21/20 06/21/20 History metformin 500 mg PO DAILY 06/21/20 06/21/20 History varenicline [Chantix] 1 mg PO BID 06/21/20 06/21/20 History Allergies Allergy/AdvReac Type Severity Reaction Status Date / Time No Known Drug Allergies Allergy Verified 06/21/20 15:21 Exam Vital Signs (past 8 hours): - 06/21/20 15:18 06/21/20 16:27 06/21/20 16:45 Temperature 98.7 F 98.7 F 98.7 F Pulse Rate 92 H 86 86 Respiratory Rate 16 14 16 Blood Pressure 139/66 130/64 139/74 Pulse Oximetry 100 06/21/20 17:10 06/21/20 18:31 06/21/20 18:41 Temperature 98.0 F Pulse Rate 82 85 Respiratory Rate 15 24 Blood Pressure 145/84 H 129/60 Pulse Oximetry 100 100 Oxygen Delivery Method Nasal Cannula Oxygen Flow Rate 1 Objective Labs Result Diagrams: 06/21/20 23:39 06/21/20 15:26 Labs: Laboratory Results - last 24 hr 06/21/20 06/21/20 06/21/20 15:26 15:26 15:26 WBC 6.4 RBC 2.34 L Hgb 4.6 L* Hct 15.6 L* MCV 66.5 L MCH 19.5 L MCHC 29.4 L RDW 21.2 H Plt Count 141 L Neut % (Auto) 66.2 Lymph % (Auto) 15.8 L [place] % (Auto) 13.9 Eos % (Auto) 2.8 Baso % (Auto) 1.3 Neut # (Auto) 4300 Lymph # (Auto) 1000 L [place] # (Auto) 900 Eos # (Auto) 200 Baso # (Auto) 100 RBC Morphology Not Reportable Hypochromasia 1+ H Anisocytosis 3+ H PT 14.8 H INR 1.3 APTT 28 Sodium 137 Potassium 4.0 Chloride 105 Carbon Dioxide 24 BUN 36 H Creatinine 1.06 Estimated GFR > 60.0 BUN/Creatinine Ratio 34.0 H Glucose 150 H Calcium 8.9 Total Bilirubin 0.6 AST 47 ALT 32 Alkaline Phosphatase 66 Total Creatine Kinase CK-MB (CK-2) CK-MB (CK-2) Rel Index Troponin I Total Protein 6.9 Albumin 3.9 Globulin 3.0 Albumin/Globulin Ratio 1.3 Nasal Screen MRSA (PCR) COVID-19 PCR Blood Type Antibody Screen Crossmatch 06/21/20 06/21/20 06/21/20 15:26 15:26 16:09 WBC RBC Hgb Hct MCV MCH MCHC RDW Plt Count Neut % (Auto) Lymph % (Auto) [place] % (Auto) Eos % (Auto) Baso % (Auto) Neut # (Auto) Lymph # (Auto) [place] # (Auto) Eos # (Auto) Baso # (Auto) RBC Morphology Hypochromasia Anisocytosis PT INR APTT Sodium Potassium Chloride Carbon Dioxide BUN Creatinine Estimated GFR BUN/Creatinine Ratio Glucose Calcium Total Bilirubin AST ALT Alkaline Phosphatase Total Creatine Kinase 36 L CK-MB (CK-2) TNP CK-MB (CK-2) Rel Index TNP Troponin I 0.043 H Total Protein Albumin Globulin Albumin/Globulin Ratio Nasal Screen MRSA (PCR) COVID-19 PCR Negative Blood Type A Positive Antibody Screen Negative Crossmatch See Detail 06/21/20 17:49 WBC RBC Hgb Hct MCV MCH MCHC RDW Plt Count Neut % (Auto) Lymph % (Auto) [place] % (Auto) Eos % (Auto) Baso % (Auto) Neut # (Auto) Lymph # (Auto) [place] # (Auto) Eos # (Auto) Baso # (Auto) RBC Morphology Hypochromasia Anisocytosis PT INR APTT Sodium Potassium Chloride Carbon Dioxide BUN Creatinine Estimated GFR BUN/Creatinine Ratio Glucose Calcium Total Bilirubin AST ALT Alkaline Phosphatase Total Creatine Kinase CK-MB (CK-2) CK-MB (CK-2) Rel Index Troponin I Total Protein Albumin Globulin Albumin/Globulin Ratio Nasal Screen MRSA (PCR) Negative for mrsa COVID-19 PCR Blood Type Antibody Screen Crossmatch Assessment & Plan Assessment and plan (1) Alcohol dependence: Status: Chronic (2) Tobacco dependence: Status: Chronic (3) Acute GI bleeding: Status: Acute (4) Anticoagulated by anticoagulation treatment: Status: Acute Assessment & Plan narrative: This is a 70-year-old man anticoagulated on Plavix, who has had several days of fatigue, and dark stool, and now comes into the ER with a hemoglobin of 4.6. He is hemodynamically stable right now is getting blood transfusions. I discussed with him the risk of a GI bleed, and that the likelihood is that there is a source in the upper gastrointestinal tract given that the stool output is dark rather than bright red blood. He also had a colonoscopy around a year ago according to the patient, which would make it less likely to have something in the colon causing this problem. It may be a small bowel entity, which we would not be able to see on either upper or lower endoscopy. I explained to the patient that if he has a small bowel source then he would need to go elsewhere for workup of that. At this point the plan is to transfuse him up, and EGD him tomorrow in order to look for an upper GI lesion. Plan: Transfused per hospitalist EGD tomorrow by Dr. Mackenzie COVID-19 COVID-19 status: Negative Result date/Date tested (Pos, Neg/Pending): 06/22/20 Time Spent With Patient Time with patient: Greater than 35 minutes
[2020-06-21 20:57] LABS: Creatine Kinase 34 U/L (55-170)
[2020-06-21 21:10] LABS: Troponin I 0.043 ng/mL (0.01-0.034)
--- NOTE | 2020-06-21 22:00 | PM.HP.1 ---
History of Present Illness History of Present Illness Date Patient Seen: 06/21/20 Time Patient Seen: 19:30 Chief complaint: needs blood transfusion Narrative: Patient with diabetes type 2, peripheral vascular disease, and hyperlipidemia presented to the ED at the request of his PCP on [facility] due to severe anemia seen on his labs. He reports a history of dark tarry stools for the last 2-3 days. On Wednesday of this week, he noticed that he had black colored stool. When he got out of bed he felt wobbly and went ahead and went into the shower and when he got out of the shower to dry off he was unable to stand. He basically rested for the rest of the day. On Wednesday he continued to have black but firm colored stool. Than yesterday he called his physician on [facility] and went in for a blood draw. As a result of the blood draw he was informed that his hematocrit was 6.0 on that he needed to come in for a blood transfusion. He describes having right-sided chest pain which is worsened by lying down and then when he sits up it feels better. He denies fevers sweats or chills, visual changes, headaches, chest pain other than what was described above, palpitations, he is positive for orthnopea, denies shortness of breath, nausea vomiting, abdominal pain, dysuria, he does have chronic right-sided knee pain and is due for a right-sided knee replacement. The patient had a left femoral angioplasty and stent placement, the last surgery being in January of 2019 where is had lasting numbness in his toes of his left foot. In the emergency department he presented with a hemoglobin and hematocrit of 4.6 and 15.6, a 2 unit PRBC infusion was started and the patient is currently on his 2nd unit. Patient is afebrile, blood pressure 132/63, heart rate 84, respiratory rate of 20, oxygen saturation 100% on 1 L nasal cannula, he weighs 82.5 kg with a BMI of 25.4. Chest x-ray was negative for an acute process. WBC 6.4, RBC 2.34, hemoglobin 4.6, hematocrit 15.6, platelet count 141, sodium 137, potassium 4.0, chloride 105, bicarb 24, BUN 36, creatinine 1.06, GFR is greater than 60, glucose 150, calcium 8.9, liver enzymes are within normal limits, did have an elevated troponin of 0.43 for the 1st 2 times will continue to trend, versus screen was negative COVID-19 negative. Patient is A positive blood type. Patient had a surgical history that was significant for peripheral vascular disease of which he had a two-stage surgery 1 done at [facility] with a ran into total occlusion distally and had him complete the femoral angioplasty at [facility] in approximately December of 2018. He is anticoagulated on full strength aspirin and Plavix. In June of 2019, the patient underwent a colonoscopy and was found to have a multiple number of tubular adenoma polyps, a single colonic angiodysplastic lesion that was treated with argon plasma coagulation (APC), they also reported that he had self-limited rectal bleeding secondary to colonic diverticulitis or a small ascending colonic AVM which was ablated. Patient History Medical History (Updated 06/21/20 @ 22:32 by TERRY Barajas) Alcohol dependence (Chronic) Angiodysplasia of colon (Acute) Arterial insufficiency (Chronic) Benign neoplasm of ascending colon (Acute) Benign neoplasm of cecum (Acute) Diverticulosis (Acute) GI bleed (Acute) Hemorrhoids (Acute) Melena (Acute) Rectal bleed (Acute) Rectal polyp (Acute) Tobacco dependence (Chronic) Surgical History (Updated 06/21/20 @ 22:32 by TERRY Barajas) H/O colonoscopy (Acute) H/O endoscopy (Acute) History of back surgery (Acute) History of knee replacement (Acute) History of shoulder surgery (Acute) Peripheral vascular angioplasty status with implants and grafts (Chronic) Family & Social History Family History (Updated 06/21/20 @ 22:31 by TERRY Barajas) Father CVA (cerebral vascular accident) Myocardial infarct Mother Diabetes mellitus Social History: household members spouse Prior Living Arrangements House Safety & Behavioral: Feels Safe in Current Yes Environment Been Physically Hurt or No Threatened By a Person Suicidal Ideation Description None Suicide Plan Description No Plan Tobacco & Substance use: Tobacco type cigarettes Smoking Status Current every day smoker alcohol intake frequency 0-2 drinks per day Substance Use Type does not use Meds Home Medications and Allergies Home Medications Medication Instructions Recorded Confirmed Type [place] Essentials 06/21/20 History atorvastatin 10 mg PO DAILY 06/21/20 06/21/20 History clopidogrel 75 mg PO DAILY 06/21/20 06/21/20 History metformin 500 mg PO DAILY 06/21/20 06/21/20 History varenicline [Chantix] 1 mg PO BID 06/21/20 06/21/20 History Allergies Allergy/AdvReac Type Severity Reaction Status Date / Time No Known Drug Allergies Allergy Verified 06/21/20 15:21 Review of Systems Review of Systems ROS: Yes All systems reviewed with the patient and are negative except as otherwise documented Exam Vital Signs (past 8 hours): - 06/21/20 15:18 06/21/20 16:27 06/21/20 16:45 Temperature 98.7 F 98.7 F 98.7 F Pulse Rate 92 H 86 86 Respiratory Rate 16 14 16 Blood Pressure 139/66 130/64 139/74 Pulse Oximetry 100 06/21/20 16:46 06/21/20 17:10 06/21/20 18:31 Temperature 98.0 F Pulse Rate 83 82 Respiratory Rate 16 15 Blood Pressure 147/67 H 145/84 H Pulse Oximetry 100 100 06/21/20 18:41 06/21/20 20:26 06/21/20 20:43 Temperature 98.0 F 98.0 F 98.1 F Pulse Rate 85 83 84 Respiratory Rate 24 16 20 Blood Pressure 129/60 147/67 H 132/63 Pulse Oximetry Oxygen Delivery Method Nasal Cannula Oxygen Flow Rate 1 Narrative Exam Narrative: Alert, oriented, well-developed 70 y.o. male, appears fatigued HEENT: normocephalic, atraumatic, conjunctiva clear, sclera non-icteric, oral mucosa pink and moist Neck: supple, full ROM, no JVD, trachea is midline Resp: Lungs CTA, non-labored breathing CV: RRR, prominent murmur auscultated loudest medially grade 5 of 6 Abd: soft, non-tender, normoactive BTs Skin: no lesions or rashes, dry and intact Neuro: Alert and oriented X 4 w/no focal deficits. Speech clear and coherent. Extremities: moves all 4 extremities, is ambulatory, negative Carson?s sign Psyche: normal mood and affect. Objective Labs Result Diagrams: 06/21/20 15:26 06/21/20 15:26 Labs: Laboratory Results - last 24 hr 06/21/20 06/21/20 06/21/20 15:26 15:26 15:26 WBC 6.4 RBC 2.34 L Hgb 4.6 L* Hct 15.6 L* MCV 66.5 L MCH 19.5 L MCHC 29.4 L RDW 21.2 H Plt Count 141 L Neut % (Auto) 66.2 Lymph % (Auto) 15.8 L [place] % (Auto) 13.9 Eos % (Auto) 2.8 Baso % (Auto) 1.3 Neut # (Auto) 4300 Lymph # (Auto) 1000 L [place] # (Auto) 900 Eos # (Auto) 200 Baso # (Auto) 100 RBC Morphology Not Reportable Hypochromasia 1+ H Anisocytosis 3+ H PT 14.8 H INR 1.3 APTT 28 Sodium 137 Potassium 4.0 Chloride 105 Carbon Dioxide 24 BUN 36 H Creatinine 1.06 Estimated GFR > 60.0 BUN/Creatinine Ratio 34.0 H Glucose 150 H Hemoglobin A1c Calcium 8.9 Total Bilirubin 0.6 AST 47 ALT 32 Alkaline Phosphatase 66 Total Creatine Kinase CK-MB (CK-2) CK-MB (CK-2) Rel Index Troponin I Total Protein 6.9 Albumin 3.9 Globulin 3.0 Albumin/Globulin Ratio 1.3 Nasal Screen MRSA (PCR) COVID-19 PCR Blood Type Antibody Screen Crossmatch 06/21/20 06/21/20 06/21/20 15:26 15:26 15:26 WBC RBC Hgb Hct MCV MCH MCHC RDW Plt Count Neut % (Auto) Lymph % (Auto) [place] % (Auto) Eos % (Auto) Baso % (Auto) Neut # (Auto) Lymph # (Auto) [place] # (Auto) Eos # (Auto) Baso # (Auto) RBC Morphology Hypochromasia Anisocytosis PT INR APTT Sodium Potassium Chloride Carbon Dioxide BUN Creatinine Estimated GFR BUN/Creatinine Ratio Glucose Hemoglobin A1c TNP Calcium Total Bilirubin AST ALT Alkaline Phosphatase Total Creatine Kinase 36 L CK-MB (CK-2) TNP CK-MB (CK-2) Rel Index TNP Troponin I 0.043 H Total Protein Albumin Globulin Albumin/Globulin Ratio Nasal Screen MRSA (PCR) COVID-19 PCR Blood Type A Positive Antibody Screen Negative Crossmatch See Detail 06/21/20 06/21/20 06/21/20 16:09 17:49 20:40 WBC RBC Hgb Hct MCV MCH MCHC RDW Plt Count Neut % (Auto) Lymph % (Auto) [place] % (Auto) Eos % (Auto) Baso % (Auto) Neut # (Auto) Lymph # (Auto) [place] # (Auto) Eos # (Auto) Baso # (Auto) RBC Morphology Hypochromasia Anisocytosis PT INR APTT Sodium Potassium Chloride Carbon Dioxide BUN Creatinine Estimated GFR BUN/Creatinine Ratio Glucose Hemoglobin A1c Calcium Total Bilirubin AST ALT Alkaline Phosphatase Total Creatine Kinase 34 L CK-MB (CK-2) TNP CK-MB (CK-2) Rel Index TNP Troponin I 0.043 H Total Protein Albumin Globulin Albumin/Globulin Ratio Nasal Screen MRSA (PCR) Negative for mrsa COVID-19 PCR Negative Blood Type Antibody Screen Crossmatch Assessment & Plan Assessment & Plan narrative: Venancio Osullivan is a 70-year-old male with a severe and symptomatic anemia who be admitted for a suspected upper GI bleed. Suspected upper GI bleed, acute, present on admission -Dr. Mackenzie plans to do an EGD as well as a colonoscopy in the morning -clears until midnight then NPO -Protonix drip initiated in the ED and will be continued. -will await orders regarding bowel prep from Dr. Mackenzie Acute blood loss anemia, present on admission -patient received 2 units of PRBC initiated in the ED and completed on the floor. Follow-up hemoglobin and hematocrit will be done and additional units ordered as needed Diabetes type 2, chronic and controlled -patient normally takes metformin 500 mg 1 or twice daily, this will be held during his stay -low-dose insulin correctional scale -Q 6 hour glucose checks patient is on a clear liquid diet until midnight and then will be NPO Hyperlipidemia, chronic and controlled -continue home dose of atorvastatin 20 mg Peripheral vascular disease, chronic -currently written for aspirin and Plavix which will currently be held -followed by vascular at the [facility] in [place] VTE prophylaxis: Caprini risk score: 5 pharmacological VT prophylaxis currently not indicated due to current acute blood loss, will order bilateral SCDs. Plan: Consults: Dr. Perez, consult and involvement is appreciated. Patient is observation status as his stay is not likely to exceed 2 midnights. FEN: sailine lock, clears, then NPO after midnight, BMP and magnesium in the am. Dispo: likely discharge to home Code Status: full code as discussed with patient
[2020-06-21 23:55] LABS: Hemoglobin 5.9 g/dL (13.5-17.5)
[2020-06-22] VITALS (26 sets, daily range): BP systolic 103–160; BP diastolic 46–86; PULSE 78–93; RESP 16–26; TEMP 36.4–37.3; O2SAT 96–99; BMI 25.4
--- NOTE | 2020-06-22 | PATH_ITS ---
[facility] Accession Number: [id number] . 01 Material submitted: . PART A: duodenum - DUODENUM 3RD PART PART B: gastrointestinal site - PREPYLORIC ULCERS . 01 Clinical history: . NEEDS BLOOD TRANSFUSION . 02 Diagnosis: A. Duodenum, Third Part, Biopsy: Duodenal mucosa with prominent dilated Simeon glands. Negative for intraepithelial lymphocytosis or villous blunting. Negative for dysplasia and malignancy. . B. Stomach, Prepyloric Ulcers, Biopsies: Acute erosive gastritis with reactive gastropathy. Negative for Helicobacter by immunohistochemistry. Negative for intestinal metaplasia. Negative for dysplasia and malignancy. [facility] 06/27/2020 1332 Local . 02 Electronically signed: . Italia Jerome MD, Pathologist NPI- [id number] . 01 Gross description: . Part A: DUODENUM 3RD PART: Received in formalin is 1 fragment(s) of oden, soft tissue measuring 0.3 x 0.3 x 0.3 cm submitted entirely in 1 cassette(s) Part B: PREPYLORIC ULCERS: Received in formalin are 3 fragment(s) of oden, soft tissue measuring 0.2 x 0.2 x 0.2 cm to 04 x 0.4 x 0.2 cm submitted entirely in 1 cassette(s) /[facility] 06/25/2020 2019 Local . 02 Microscopic: . B. An immunohistochemical stain was performed to evaluate for Helicobacter organisms and is negative. The control stain showed appropriate reactivity. . * This test was developed and its performance characteristics determined by [employer]. It has not been cleared or approved by the U.S. Food and Drug Administration. The FDA has determined that such clearance or approval is not necessary. This test is used for clinical purposes. It should not be regarded as investigational or for research. . 02 Pathologist provided ICD-10: D50.9 . 02 CPT . 411509, 487545, P53076 Performed at: 01 [facility] [address] [place] [address], [place], [place] [id number] MD Miles Smith MD Phone: [phone] Performed at: [facility] [address] [place], [place] [id number] MD Italia Jerome MD Phone: [phone]
[2020-06-22] MEDS: PANTOPRAZOLE 80 MG in SODIUM CHLORIDE 0.9% 100 ML 10 ML IV ×3 (02:11→15:17)
--- NOTE | 2020-06-22 03:30 | PC.NURSE ---
Addendum entered by Hortencia Castro R.N. 06/22/20 05:48: 0540 TERRY Hilario notified of H/H 7.3/22.8 after third unit PRBC. Pt has had no stools this 8 hours. Original Note: Patient denies pain. States that he is able to use urinal in bed. NPO at midnight for scopes in AM. Additional one unit PRBCs infusing per GOLD LETTERER orders. H/H after first two units 5.9/. Third unit near completion at this time. Labs ordered for 0500.
[2020-06-22] MEDS: SODIUM CHLORIDE 0.9% 1,000 ML 84 ML IV ×2 (03:49→15:17)
[2020-06-22 05:18] LABS: Add Manual Diff / Slide Review NO; Basophils Absolute Auto 100 /uL (0-100); Eosinophils Absolute Auto 300 /uL (0-450); Eosinophils Percent Auto 3.9 % (2-4); Hematocrit 22.8 % (41-53); Hemoglobin 7.3 g/dL (13.5-17.5); Lymphocytes Absolute Auto 1000 /uL (1100-4500); Lymphocytes Percent Auto 13.1 % (25-40); Mean Corpuscular HGB Conc 32.1 % (30-36); Mean Corpuscular Hemoglobin 23.2 PG (26-34); Mean Corpuscular Volume 72.3 fL (80-100); Monocytes Absolute Auto 1000 /uL (0-900); Monocytes Percent Auto 12.9 % (3-14); Neutrophils Absolute Auto 5100 /uL (1500-7000); Neutrophils Percent Auto 69.1 % (50-75); Platelet Count 115 X10^3/uL (150-400); Red Blood Cell Count 3.15 X10^6/uL (4.5-5.9); Red Cell Distribution Width 25.3 % (11.6-14.8); White Blood Cell Count 7.4 X10^3/uL (4.5-11.0)
[2020-06-22 05:34] LABS: BUN Creatinine Ratio 25.5 (6-22); Blood Urea Nitrogen 25 mg/dL (9-20); Calcium 8.2 mg/dL (8.4-10.2); Carbon Dioxide 23 mmol/L (22-32); Chloride 109 mmol/L (98-107); Estimated Glomerular Filt Rate > 60.0 mL/min (>60); Glucose 140 mg/dL (80-110); HEMOLYSIS < 15 (0-50); Magnesium 1.7 mg/dL (1.6-2.3); Potassium 3.8 mmol/L (3.4-5.1); Sodium 136 mmol/L (137-145)
[2020-06-22 05:46] LABS: Anisocytosis 3+; Hypochromasia 1+
[2020-06-22 05:48] LABS: Dimorphic RBC YES; Polychromasia 1+
[2020-06-22] MEDS: INSULIN ASPART 100 UNIT/ML INSULN PEN SUBCUT ×2 (07:47→17:21)
--- NOTE | 2020-06-22 09:21 | PC.NURSE ---
Addendum entered by Helen Warren R.N. 06/22/20 15:12: Patient back from EGD...He is tolerating clear liquids, pass down given to RN. Addendum entered by Helen Warren R.N. 06/22/20 10:59: 4th unit of blood infusing and patient is tolerating this well. His just arrived to room to visit. GED will be more this afternoon after talking with the surgeon. Original Note: Assess- Patient is A&Ox3, he states that he has not gotten much sleep last night. BS 160, 1U of insulin given. He has been NPO for EGD today. talking to patient about EGD now. Unsure of what time he will be going down to surgery. Resting now.
--- NOTE | 2020-06-22 10:33 | PM.PREOP ---
Pre-operative Note COVID-19 COVID-19 status: Negative Result date/Date tested (Pos, Neg/Pending): 06/21/20 Interval Note History & Physical reviewed/Exam performed by Physician: Yes Changes to H&P: No H&P completed within 30 days and has changed as indicated here:: Patient states that he also gets bloody noses some of which of lasted over 4 hours. He did have a bloody nose he said before stool turned black. Usually he does not bleed that much. Sometimes however it can drip down his throat and can be larger volumes. It was hard for me to clarify how much he bled this most recent episode. He denies any abdominal pain. I have discussed the operation with the patient (EGD). Risks of bleeding and perforation were discussed with him. He appears to understand wishes to proceed. He asked about a colonoscopy. Given he just had 1 1 year ago this is clearly black blood(tar black) I will probably not do a colonoscopy and LEs is EGD is negative though this well could be from a nose bleed. Even so, his hematocrit is quite low and I suspect there is more than a nose bleed going on here. He stated that his stool was brown prior to these events. ASA Class (for procedural sedation): III
--- NOTE | 2020-06-22 13:08 | P.PN_ITS ---
Subjective Subjective Date Patient Seen: 06/22/20 Interval history: Venancio Osullivan is a 70-year-old male with a past medical history significant for previous GI bleed, diabetes mellitus type 2, non-insulin using, peripheral vascular disease status post stenting to LLE, hyperlipidemia, GERD and alcohol and nicotine dependence who presented to the ED at the request of his PCP on [facility] due to severe anemia on labs. The patient is resting in bed comfortably. He is scheduled to have a endoscopy later today and has been NPO since midnight. He has received 3 units of PRBC with appropriate compensation and plan to transfuse 1 additional unit for goal hemoglobin 8.0 or greater due to peripheral vascular disease. He has no complaints and denies headache, chest pain, shortness of breath, vision changes, dizziness, lightheadedness, presyncope or syncope, abdominal pain, nausea, vomiting, fever, chills, dysuria, diarrhea or constipation. He reports he had started having melena 5 days ago which he reports is resolving and he is not had a bowel movement since yesterday. He is voiding and eliminating without difficulty. He is up ambulating without assistance. Exam Vital Signs (past 8 hours): - 06/22/20 06:00 06/22/20 07:30 06/22/20 10:15 Temperature 99.1 F 98.2 F Pulse Rate 87 83 Respiratory Rate 19 23 Blood Pressure 157/77 H 155/74 H Pulse Oximetry 97 97 06/22/20 10:32 06/22/20 10:48 06/22/20 10:50 Temperature 98.2 F 98.1 F 98.1 F Pulse Rate 83 81 81 Respiratory Rate 23 20 20 Blood Pressure 155/74 H 151/74 H 151/74 H Pulse Oximetry 99 06/22/20 12:39 Temperature 98.3 F Pulse Rate 85 Respiratory Rate 16 Blood Pressure 155/85 H Pulse Oximetry 99 Oxygen Delivery Method Room Air Oxygen Flow Rate 0 Narrative Exam Narrative: General: Older male lying in bed and in no acute distress, well-developed, well- nourished, appropriately interactive HEENT: Normocephalic, atraumatic. External ears without defect. Pupils equal, round, and reactive to light. Anicteric sclerae, moist conjunctivae, and no lid lag. Oropharynx free of erythema and cobble stoning with moist mucosa. Neck: Supple with full range of motion. No jugular venous distension. No lymphadenopathy or thyromegaly. Cardiovascular: Regular rate and rhythm without murmurs, rubs, or gallops appreciated Pulmonary: Clear to auscultation bilaterally without crackles, wheezes, or rhonchi. Normal respiratory effort with no use of accessory muscles. Abdomen: Soft, bowel sounds present, nontender, nondistended. No hepatosplenomegaly or masses appreciated. Extremities: No clubbing, cyanosis, or edema. Skin: Normal temperature, turgor, and texture; no rash, ulcers, or subcutaneous nodules appreciated. Neurological: Cranial nerves grossly intact. Psychiatric: Slightly irritable mood and flat affect. Alert and oriented to person, place, and time. Probable mild cognitive impairment. Objective Labs Result Diagrams: 06/23/20 04:38 06/23/20 04:38 Labs: Laboratory Results - last 24 hr 06/21/20 06/21/20 06/21/20 15:26 15:26 15:26 WBC 6.4 RBC 2.34 L Hgb 4.6 L* Hct 15.6 L* MCV 66.5 L MCH 19.5 L MCHC 29.4 L RDW 21.2 H Plt Count 141 L Neut % (Auto) 66.2 Lymph % (Auto) 15.8 L [place] % (Auto) 13.9 Eos % (Auto) 2.8 Baso % (Auto) 1.3 Neut # (Auto) 4300 Lymph # (Auto) 1000 L [place] # (Auto) 900 Eos # (Auto) 200 Baso # (Auto) 100 RBC Morphology Not Reportable Dimorphic RBCs Polychromasia Hypochromasia 1+ H Anisocytosis 3+ H PT 14.8 H INR 1.3 APTT 28 Sodium 137 Potassium 4.0 Chloride 105 Carbon Dioxide 24 BUN 36 H Creatinine 1.06 Estimated GFR > 60.0 BUN/Creatinine Ratio 34.0 H Glucose 150 H Hemoglobin A1c Calcium 8.9 Magnesium Total Bilirubin 0.6 AST 47 ALT 32 Alkaline Phosphatase 66 Total Creatine Kinase CK-MB (CK-2) CK-MB (CK-2) Rel Index Troponin I Total Protein 6.9 Albumin 3.9 Globulin 3.0 Albumin/Globulin Ratio 1.3 Nasal Screen MRSA (PCR) COVID-19 PCR Blood Type Antibody Screen Crossmatch 06/21/20 06/21/20 06/21/20 15:26 15:26 15:26 WBC RBC Hgb Hct MCV MCH MCHC RDW Plt Count Neut % (Auto) Lymph % (Auto) [place] % (Auto) Eos % (Auto) Baso % (Auto) Neut # (Auto) Lymph # (Auto) [place] # (Auto) Eos # (Auto) Baso # (Auto) RBC Morphology Dimorphic RBCs Polychromasia Hypochromasia Anisocytosis PT INR APTT Sodium Potassium Chloride Carbon Dioxide BUN Creatinine Estimated GFR BUN/Creatinine Ratio Glucose Hemoglobin A1c TNP Calcium Magnesium Total Bilirubin AST ALT Alkaline Phosphatase Total Creatine Kinase 36 L CK-MB (CK-2) TNP CK-MB (CK-2) Rel Index TNP Troponin I 0.043 H Total Protein Albumin Globulin Albumin/Globulin Ratio Nasal Screen MRSA (PCR) COVID-19 PCR Blood Type A Positive Antibody Screen Negative Crossmatch See Detail 06/21/20 06/21/20 06/21/20 16:09 17:49 20:40 WBC RBC Hgb Hct MCV MCH MCHC RDW Plt Count Neut % (Auto) Lymph % (Auto) [place] % (Auto) Eos % (Auto) Baso % (Auto) Neut # (Auto) Lymph # (Auto) [place] # (Auto) Eos # (Auto) Baso # (Auto) RBC Morphology Dimorphic RBCs Polychromasia Hypochromasia Anisocytosis PT INR APTT Sodium Potassium Chloride Carbon Dioxide BUN Creatinine Estimated GFR BUN/Creatinine Ratio Glucose Hemoglobin A1c Calcium Magnesium Total Bilirubin AST ALT Alkaline Phosphatase Total Creatine Kinase 34 L CK-MB (CK-2) TNP CK-MB (CK-2) Rel Index TNP Troponin I 0.043 H Total Protein Albumin Globulin Albumin/Globulin Ratio Nasal Screen MRSA (PCR) Negative for mrsa COVID-19 PCR Negative Blood Type Antibody Screen Crossmatch 06/21/20 06/22/20 06/22/20 23:39 04:46 04:46 WBC 7.4 RBC 3.15 L Hgb 5.9 L* 7.3 L Hct 19.0 L* 22.8 L MCV 72.3 L D MCH 23.2 L MCHC 32.1 RDW 25.3 H Plt Count 115 L Neut % (Auto) 69.1 Lymph % (Auto) 13.1 L [place] % (Auto) 12.9 Eos % (Auto) 3.9 Baso % (Auto) 1.0 Neut # (Auto) 5100 Lymph # (Auto) 1000 L [place] # (Auto) 1000 H Eos # (Auto) 300 Baso # (Auto) 100 RBC Morphology See below Dimorphic RBCs Yes Polychromasia 1+ H Hypochromasia 1+ H Anisocytosis 3+ H PT INR APTT Sodium 136 L Potassium 3.8 Chloride 109 H Carbon Dioxide 23 BUN 25 H Creatinine 0.98 Estimated GFR > 60.0 BUN/Creatinine Ratio 25.5 H Glucose 140 H Hemoglobin A1c Calcium 8.2 L Magnesium 1.7 Total Bilirubin AST ALT Alkaline Phosphatase Total Creatine Kinase CK-MB (CK-2) CK-MB (CK-2) Rel Index Troponin I Total Protein Albumin Globulin Albumin/Globulin Ratio Nasal Screen MRSA (PCR) COVID-19 PCR Blood Type Antibody Screen Crossmatch Assessment & Plan Assessment & Plan narrative: Venancio Osullivan is a 70-year-old male with a past medical history significant for diabetes mellitus type 2, non-insulin using, peripheral vascular disease status post stenting to LLE, hyperlipidemia, GERD and alcohol and nicotine dependence who presented to the ED at the request of his PCP on [facility] due to severe anemia on labs. 1. Acute upper GI bleed, present on admission. Resolving. -Patient presented at instruction of his PCP due to severe anemia. Patient reports melena 5 days ago that was slowly improving and lightheadedness/dizziness that resolved. -Held home aspirin 81 mg daily and clopidogrel 75 mg daily. -Continue to monitor H&H closely and transfuse if needed as below. -Consulted general surgery, Dr. Mackenzie, who performed EGD which demonstrated two ulcers opposite 1 another in the distal antrum pre-pyloric area and small polyp like lesion in the junction of the 2nd and 3rd parts the duodenum which was biopsied. Continue clear liquid diet per general surgery. Discontinued protonix gtt. Started quadruple therapy with amoxicillin 1000 mg twice daily, clarithromycin 500 mg twice daily, metronidazole 500 mg twice daily and Protonix 40 mg twice daily for 2 weeks to empirically treat H. pylori per general surgery. Thereafter, the patient will continue Protonix 40 mg twice daily for 4-6 weeks. Follow-up with general surgery in 4 weeks. 2. Acute symptomatic blood loss anemia, present on admission. Resolving. -Initial hemoglobin 4.6. Received 3 units PRBC with appropriate compensation with hemoglobin 7.3. Plan to give additional 1 U PRBC. Transfusion goal hemoglobin < 8.0 due to peripheral vascular disease or patient becomes severely symptomatic. -Continue to monitor H&H closely. 3. Diabetes mellitus type 2, non-insulin using, chronic, present on admission. Stable. -Hemoglobin A1C not able to be measure due to degree of anemia. -Held metformin. -Continue ACHS blood glucose checks and low-dose insulin correctional scale insulin. 4. Hyperlipidemia, chronic, present on admission. Stable. -Continue home atorvastatin 10 mg daily. 5. Peripheral vascular disease, status post left lower extremity stenting, chronic, present on admission. Stable. -Patient is followed by vascular at [facility] [place]. Patient received stents to [facility] in August 2019. -Held aspirin and Plavix as above. 6. Tobacco and alcohol dependence, chronic, present on admission. Active. -Patient smokes 1 ppd. Patient continues to consume alcohol regularly. -Counseled the patient extensively on smoking and alcohol cessation. -Will provide nicoderm patch if needed for nicotine withdrawal. Continue to monitor for signs of alcohol withdrawal which the patient has not exhibited thus far during hospitalization. -Consulted MANAGER INVESTIGATIONS and we appreciate her time and resources provided. Code Status: Full code, surrogate decision maker is spouse VTE prophylaxis: Contraindicated due to GI bleed, SCDs. Disposition: Patient will likely discharge home tomorrow if blood counts remain stable and no recurrence of bleeding.
--- NOTE | 2020-06-22 13:53 | P.OP.ENDO_ITS ---
Operative Date/Time/Diagnoses Date of procedure: 06/22/20 Time of procedure: 13:53 Pre-op diagnosis: Upper GI bleed with profound anemia Post-op diagnosis: same (Two ulcers opposite 1 another in the distal antrum pre- pyloric area. Small polyp like lesion in the junction of the 2nd and 3rd parts the duodenum which was biopsied) Procedure & Clinicians Study performed: EGD with cold biopsy Indications: Profound anemia with a history of melena. Patient medically very high risk and thus anesthesia involved. Patient is a diabetic vasculopath with stents, cardiac issues, history of extensive alcohol use, who was admitted with profound anemia. Thus anesthesia was involved with his procedure. He was felt by Anesthesia to be a an ASA 4 E. Surgeon: Greyson Mackenzie Procedure Notes SCOAP/Timeout: Performed Procedure in detail: The patient was sedated by anesthesia. A bite block was inserted and the scope was advanced through it into the esophagus. The esophagus was unremarkable. GE junction was noted at 47 cm from the incisors.. The stomach insufflated well. The patient was noted to have what appeared to be healing ulcers in the pre-pyloric area 1 opposite the other. The pyloric channel was narrowed but patent. The pyloric channel was cannulated with the scope. The duodenum was examined to the 4th part. In the junction between the 2nd and 3rd part there was a small polyp like lesion which was biopsied. The scope was brought back into the stomach and retroflexed. The proximal stomach normal in appearance. The scope was straightened and biopsies taken of the 2 ulcers. The scope was then brought out through the esophagus again. No other lesions were seen. The scope was removed and the patient tolerated the procedure well. There was no blood in the upper tract at the time of this examination. Scope withdrawal time: Not applicable Sedation minutes: 0 (Anesthesia involved providing deep sedation) Findings: gastric ulcer and polyp (Duodenum) Specimen(s): other (Gastric ulcer biopsies. Duodenal polyp biopsy) Post-procedure Plan for aftercare: Proton pump inhibitors. Consider empiric treatment for H pylori. Follow up: months (One) Disposition: PACU
--- NOTE | 2020-06-22 15:38 | CM.IDA ---
Addendum entered by GHADA Monae 06/22/20 15:46: Chart indicates ETOH dependence, amount of use unknown. ORDER TRACER available as needed for TAVARES consult. Original Note: Initial DCP Assessment Note Patient is a 70 yo male, resident of [facility]. Patient presents w/severe anemia, upper GI Bleed PCP: Venancio Devine Payer: MCR/[employer] Reviewed chart. Met patient during multidisciplinary rounds, introduced role. Returned to speak w/patient's spouse Gini, patient off the floor for his EGD, introduced role to spouse. She explained patient and she are active and indp at baseline and she doesn't expect any needs from this ORDER TRACER. Gini is the most concerned w/learning what has been going on w/patient and hopefully getting treatment if dx found Later review of chart shows gastric ulcer and polyp found, biopsies taken. Proton pump inhibitors and treatment for H Pylori suggested by Dr Mackenzie. DC likely home w/close outpt f/u once patient has been medically cleared. Likely no needs from ORDER TRACER team but will follow closely in case any DC needs or concerns arise. GHADA Monae Discharge Planning/Care Management CM Discharge Assessment Start: 06/22/20 15:37 Freq: Status: Active Protocol: Document 06/22/20 15:37 LIOR (Rec: 06/22/20 15:38 LIOR [id number]) Discharge Planning Assessment Assigned Parks And Recreation Manager GHADA Cortez DPOA/Assigned Designee Name Gini Morocho, spouse Contact Information [phone] Advance Directives? No History Provided By Patient,Significant Other Prior Living Arrangements House Household Members spouse Type of transporation used prior to Drives own vehicle admit Independent with ADL's Yes Is patient alert and oriented? Yes Barriers to Discharge No Comment Likely not Discharge Plan Home Transportation Arrangement Spouse
[2020-06-22] MEDS: BENZOCAINE/MENTHOL 1 LOZ PKT 1 EACH PO ×3 (19:24→23:39)
[2020-06-22] MEDS: AMOXICILLIN 250 MG CAPSULE 1000 MG PO (21:21)
[2020-06-22] MEDS: ACETAMINOPHEN 325 MG TABLET 650 MG PO (21:21)
[2020-06-22] MEDS: metroNIDAZOLE 500 MG TABLET PO (21:22)
[2020-06-23 01:00] VITALS: O2SAT 96
[2020-06-23] MEDS: SODIUM CHLORIDE 0.9% 1,000 ML 84 ML IV (03:20)
[2020-06-23 04:44] VITALS: BP 172/80; PULSE 86; RESP 20; TEMP 36.7; O2SAT 97
[2020-06-23 05:00] VITALS: O2SAT 97
[2020-06-23 05:08] LABS: Add Manual Diff / Slide Review NO; Basophils Absolute Auto 100 /uL (0-100); Basophils Percent Auto 0.5 % (0-2); Eosinophils Absolute Auto 400 /uL (0-450); Eosinophils Percent Auto 3.7 % (2-4); Hematocrit 26.4 % (41-53); Hemoglobin 8.5 g/dL (13.5-17.5); Lymphocytes Absolute Auto 900 /uL (1100-4500); Lymphocytes Percent Auto 9.4 % (25-40); Mean Corpuscular HGB Conc 32.1 % (30-36); Mean Corpuscular Hemoglobin 23.7 PG (26-34); Mean Corpuscular Volume 73.9 fL (80-100); Monocytes Absolute Auto 1200 /uL (0-900); Monocytes Percent Auto 12.3 % (3-14); Neutrophils Absolute Auto 7500 /uL (1500-7000); Neutrophils Percent Auto 74.1 % (50-75); Platelet Count 124 X10^3/uL (150-400); Red Blood Cell Count 3.57 X10^6/uL (4.5-5.9); Red Cell Distribution Width 24.8 % (11.6-14.8); White Blood Cell Count 10.1 X10^3/uL (4.5-11.0)
[2020-06-23 05:12] LABS: BUN Creatinine Ratio 16.7 (6-22); Blood Urea Nitrogen 15 mg/dL (9-20); Calcium 8.1 mg/dL (8.4-10.2); Carbon Dioxide 22 mmol/L (22-32); Chloride 108 mmol/L (98-107); Estimated Glomerular Filt Rate > 60.0 mL/min (>60); Glucose 127 mg/dL (80-110); HEMOLYSIS < 15 (0-50); Magnesium 1.6 mg/dL (1.6-2.3); Sodium 137 mmol/L (137-145)
[2020-06-23 05:45] LABS: Polychromasia 1+
[2020-06-23 05:46] LABS: Anisocytosis 3+
[2020-06-23] MEDS: PANTOPRAZOLE 40 MG TABLET PO (06:49)
[2020-06-23] MEDS: ACETAMINOPHEN 325 MG TABLET 650 MG PO (07:02)
[2020-06-23 08:00] VITALS: BP 150/72; PULSE 86; RESP 20; TEMP 36.9; O2SAT 95
[2020-06-23] MEDS: metroNIDAZOLE 500 MG TABLET PO (08:58)
[2020-06-23] MEDS: CLARITHROMYCIN 500 MG TABLET PO (08:58)
[2020-06-23] MEDS: AMOXICILLIN 250 MG CAPSULE 1000 MG PO (08:58)
[2020-06-23] MEDS: INSULIN ASPART 100 UNIT/ML INSULN PEN SUBCUT (08:59)
--- NOTE | 2020-06-23 10:57 | CM.DANOTE ---
DCP/continued: Reviewed chart. Received verbal referral from provider/Dr. Ruff requesting FLIGHT OPERATIONS ENGINEER provide patient and spouse with information pertaining to alcoholism. Met with patient explained role, spouse at bedside. Patient admits to drinking frequently but denies having active issue. Patient reports his last drink was last Wednesday and that his drink of choice is vodka. Spouse reports that she cannot confirm or deny the above because patient usually goes and drinks with his friends. Provided resources for both Tian and Alcoholic Anonymous to patient and spouse. Also included senior resource guide. Patient discharging home today. Priority boarding completed and sailing to return to [place] expected around 12:40pm. P: Home, resources provided. Provider updated. GHADA Farah
--- NOTE | 2020-06-23 11:55 | PC.NURSE ---
Patient just discharged home. Out to car with cabinet and trim installer. Pass for ferry to [place] given. to drive patient home
--- NOTE | 2020-06-23 12:14 | P.DS_ITS ---
History of Present Illness History of Present Illness Date Patient Seen: 06/21/20 Chief complaint: needs blood transfusion Narrative: Written by Kathryn STEWART: Patient with diabetes type 2, peripheral vascular disease, and hyperlipidemia presented to the ED at the request of his PCP on [facility] due to severe anemia seen on his labs. He reports a history of dark tarry stools for the last 2-3 days. On Wednesday of this week, he noticed that he had black colored stool. When he got out of bed he felt wobbly and went ahead and went into the shower and when he got out of the shower to dry off he was unable to stand. He basically rested for the rest of the day. On Wednesday he continued to have black but firm colored stool. Than yesterday he called his physician on [facility] and went in for a blood draw. As a result of the blood draw he was informed that his hematocrit was 6.0 on that he needed to come in for a blood transfusion. He describes having right-sided chest pain which is worsened by lying down and then when he sits up it feels better. He denies fevers sweats or chills, visual changes, headaches, chest pain other than what was described above, palpitations, he is positive for orthnopea, denies shortness of breath, nausea vomiting, abdominal pain, dysuria, he does have chronic right-sided knee pain and is due for a right-sided knee replacement. The patient had a left femoral angioplasty and stent placement, the last surgery being in January of 2019 where is had lasting numbness in his toes of his left foot. In the emergency department he presented with a hemoglobin and hematocrit of 4.6 and 15.6, a 2 unit PRBC infusion was started and the patient is currently on his 2nd unit. Patient is afebrile, blood pressure 132/63, heart rate 84, respiratory rate of 20, oxygen saturation 100% on 1 L nasal cannula, he weighs 82.5 kg with a BMI of 25.4. Chest x-ray was negative for an acute process. WBC 6.4, RBC 2.34, hemoglobin 4.6, hematocrit 15.6, platelet count 141, sodium 137, potassium 4.0, chloride 105, bicarb 24, BUN 36, creatinine 1.06, GFR is greater than 60, glucose 150, calcium 8.9, liver enzymes are within normal limits, did have an elevated troponin of 0.43 for the 1st 2 times will continue to trend, versus screen was negative COVID-19 negative. Patient is A positive blood type. Patient had a surgical history that was significant for peripheral vascular disease of which he had a two-stage surgery 1 done at [facility] with a ran into total occlusion distally and had him complete the femoral angioplasty at [facility] in approximately December of 2018. He is anticoagulated on full strength aspirin and Plavix. In June of 2019, the patient underwent a colonoscopy and was found to have a multiple number of tubular adenoma polyps, a single colonic angiodysplastic lesion that was treated with argon plasma coagulation (APC), they also reported that he had self-limited rectal bleeding secondary to colonic diverticulitis or a small ascending colonic AVM which was ablated. Discharge Providers Provider Date of admission: 06/21/20 16:31 Discharge Date: 06/23/20 Primary care physician: Venancio Devine MD Consults: 06/21/20 16:08 Consult to General Surgery Stat Comment: Dr. Perez Consulting Provider: Ellie Perez Reason for consultation: GIB-tarry stool for 3 days, on plavix and baby asa, diverticulitis, hx-GIB Has provider been notified: Yes Discharge provider: Sarah Ruff DO Summary Hospital Course Discharge Diagnosis: 1. Acute upper GI bleed, present on admission. Resolved. 2. Acute symptomatic blood loss anemia, present on admission. Resolved. 3. Diabetes mellitus type 2, non-insulin using, chronic, present on admission. Stable. 4. Hyperlipidemia, chronic, present on admission. Stable. 5. Peripheral vascular disease, status post left lower extremity stenting, chronic, present on admission. Stable. 6. Tobacco and alcohol dependence, chronic, present on admission. Active. Hospital Course: Venancio Osullivan is a 70-year-old male with a past medical history significant for diabetes mellitus type 2, non-insulin using, peripheral vascular disease status post stenting to LLE, hyperlipidemia, GERD and alcohol and nicotine dependence who presented to the ED at the request of his PCP on [facility] due to severe anemia on labs. 1. Acute upper GI bleed, present on admission. Resolved. -Secondary to NSAID's (Aleve twice a day and ASA). -Patient presented at instruction of his PCP due to severe anemia. Patient reports melena 5 days ago that was slowly improving and lightheadedness/dizziness that resolved. -Held home aspirin 81 mg daily and clopidogrel 75 mg daily for 3 additional days and may resume if no recurrence of bleeding. -Continue to monitor H&H closely and transfuse if needed as below. -Consulted general surgery, Dr. Mackenzie, who performed EGD which demonstrated two ulcers opposite 1 another in the distal antrum pre-pyloric area and small polyp like lesion in the junction of the 2nd and 3rd parts the duodenum which was biopsied. Continue clear liquid diet per general surgery. Discontinued protonix gtt. Started quadruple therapy with amoxicillin 1000 mg twice daily, clarithromycin 500 mg twice daily, metronidazole 500 mg twice daily and Protonix 40 mg twice daily for 2 weeks to empirically treat H. pylori per general surgery. Thereafter, the patient will continue Protonix 40 mg twice daily for 4-6 weeks. Follow-up with general surgery in 4 weeks. 2. Acute symptomatic blood loss anemia, present on admission. Resolved. -Initial hemoglobin 4.6. Received 4 units PRBC with appropriate compensation with hemoglobin 8.5. Transfusion goal hemoglobin < 8.0 due to peripheral vascular disease or patient becomes severely symptomatic. -Continued to monitor H&H closely. 3. Diabetes mellitus type 2, non-insulin using, chronic, present on admission. Stable. -Hemoglobin A1C not able to be measure due to degree of anemia. -Held metformin. -Continued ACHS blood glucose checks and low-dose insulin correctional scale insulin. 4. Hyperlipidemia, chronic, present on admission. Stable. -Continued home atorvastatin 10 mg daily. 5. Peripheral vascular disease, status post left lower extremity stenting, chronic, present on admission. Stable. -Patient is followed by vascular at [facility] [place]. Patient received stents to [facility] in August 2019. -Held aspirin and Plavix as above for 3 additional days and may resume if no recurrence of bleeding. 6. Tobacco and alcohol dependence, chronic, present on admission. Active. -Patient smokes 1 ppd. Patient continues to consume alcohol regularly. -Counseled the patient extensively on smoking and alcohol cessation. -Will provide nicoderm patch if needed for nicotine withdrawal. Continued to monitor for signs of alcohol withdrawal which the patient did not exhibit throughout hospitalization. -Consulted [employer]PERATOR and we appreciate her time and resources provided. Exam Vital Signs (past 8 hours): - 06/23/20 04:44 06/23/20 05:00 06/23/20 08:00 Temperature 98.1 F 98.5 F Pulse Rate 86 86 Respiratory Rate 20 20 Blood Pressure 172/80 H 150/72 H Pulse Oximetry 97 97 95 Oxygen Delivery Method Room Air Oxygen Flow Rate 0 Narrative Exam Narrative: General: Older male lying in bed and in no acute distress, well-developed, well- nourished, appropriately interactive. HEENT: Normocephalic, atraumatic. External ears without defect. Pupils equal, r ound, and reactive to light. Anicteric sclerae, moist conjunctivae, and no lid lag. Oropharynx free of erythema and cobble stoning with moist mucosa. Neck: Supple with full range of motion. No jugular venous distension. No lymphadenopathy or thyromegaly. Cardiovascular: Regular rate and rhythm without murmurs, rubs, or gallops appreciated Pulmonary: Clear to auscultation bilaterally without crackles, wheezes, or rhonchi. Normal respiratory effort with no use of accessory muscles. Abdomen: Soft, bowel sounds present, nontender, nondistended. No hepatosplenomegaly or masses appreciated. Extremities: No clubbing, cyanosis, or edema. Skin: Normal temperature, turgor, and texture; no rash, ulcers, or subcutaneous nodules appreciated. Neurological: Cranial nerves grossly intact. Psychiatric: Normal mood and flat affect. Alert and oriented to person, place, and time. Probable mild cognitive impairment. Objective Labs Result Diagrams: 06/23/20 04:38 06/23/20 04:38 Labs: Laboratory Results - last 24 hr 06/21/20 06/23/20 06/23/20 15:26 04:38 04:38 WBC 10.1 RBC 3.57 L Hgb 8.5 L Hct 26.4 L MCV 73.9 L MCH 23.7 L MCHC 32.1 RDW 24.8 H Plt Count 124 L Neut % (Auto) 74.1 Lymph % (Auto) 9.4 L [place] % (Auto) 12.3 Eos % (Auto) 3.7 Baso % (Auto) 0.5 Neut # (Auto) 7500 H Lymph # (Auto) 900 L [place] # (Auto) 1200 H Eos # (Auto) 400 Baso # (Auto) 100 RBC Morphology See below Polychromasia 1+ H Anisocytosis 3+ H Sodium 137 Potassium 4.0 Chloride 108 H Carbon Dioxide 22 BUN 15 Creatinine 0.90 Estimated GFR > 60.0 BUN/Creatinine Ratio 16.7 Glucose 127 H Calcium 8.1 L Magnesium 1.6 Crossmatch See Detail Discharge Plan Discharge Plan Patient Disposition: Home Discharge comment: You are being discharged home. You had a GI bleed due to ulcers in your stomach. These were likely due to your aspirin and NSAID use, alcohol use and possibly a bacteria called H pylori. You are being empirically treated for H. pylori. You have been prescribed 3 antibiotics including: Amoxicillin 1000 mg twice daily, clarithromycin 500 mg twice daily, metro nidazole 500 mg twice daily to take for 13 additional days to complete antibiotic course. You have been prescribed a medication that reduces acid production to help your ulcers heal which is called Protonix 40 mg twice daily for 6-8 weeks. You may resume your aspirin and Plavix on Wednesday06/25/2020 as long as you have no additional bleeding. Please follow-up with your primary care physician, Dr. Devine, regarding your hospitalization next week if possible. Please follow-up with general surgery, Dr. Mackenzie, in 4 weeks. If you have recurrent persistent dark black stools please seek medical attention immediately as you likely have active bleeding. Please do not consume alcohol as your antibiotics interact and will cause a severe nausea and vomiting. Recommend alcohol and tobacco cessation indefinitely. Discharge orders & Medications Prescriptions: New amoxicillin 500 mg tablet 1,000 mg PO BID Qty: 52 RF: 0 clarithromycin 500 mg Tablet 500 mg PO BID Qty: 26 RF: 0 metronidazole 500 mg Tablet 500 mg PO BID Qty: 26 RF: 0 pantoprazole 40 mg Tablet,Delayed Release (Dr/Ec) 40 mg PO 0700,2100 Qty: 120 RF: 0 Continued atorvastatin 10 mg tablet 10 mg PO DAILY RF: 0 clopidogrel 75 mg tablet 75 mg PO DAILY RF: 0 metformin 500 mg tablet extended release 24 hr 500 mg PO DAILY RF: 0 Chantix 1 mg Tablet 1 mg PO BID RF: 0 [place] Essentials 1 cap PO DAILY RF: 0 Follow up/Referrals: Greyson Mackenzie MD [Physician] - 1 Month Venancio Devine MD [Primary Care Provider] - 1 Week Diet/Activity/Treatments Diet: Low-fat, Low-sodium and Low-cholesterol Activity: Activity as tolerated Visit Report/Discharge Packet Instructions: Alcohol and Stress: There are Safer Ways to [place], Nonsteroidal Anti-inflammatory Drugs (Alternative Therapy), DI for Alcohol Use Disorder, DI for Peptic Ulcer, Drug and Alcohol Withdrawal, DI for Helicobacter Pylori Infection, Disulfiram, Amoxicillin, Metronidazole, Clarithromycin, How to Quit Tobacco Products Visit Report Forms: Patient Portal/API, Stroke Signs & Symptoms Discharge Data Primary Care Provider: Venancio Devine Discharges patient from system. Discharge Date/Time: 06/23/20 11:56
== END 2020-06-23 11:56 | disposition home or self-care (01) | DRG 378 ==
LOC: ED 15:28 → AC 16:43 → ICU 17:44 → AC 06-25 07:52 → ICU 06-25 07:52
PROVIDERS: Nurse Practitioner Family; Specialist; Admitting Provider Internal Medicine; Emergency Provider Nurse Practitioner Family; PCP Family Medicine; Referring Provider Nurse Practitioner Family; Visit Provider Internal Medicine
PROC: 0DJ08ZZ Inspection of Upper Intestinal Tract, Via Natural or Artificial Opening Endoscopic (ICD-10-PCS; CPT 43235; principal; 2020-06-22 15:15)
DX: K92.1 Melena (principal); D62 Acute posthemorrhagic anemia; T39.395A Adverse effect of other nonsteroidal anti-inflammatory drugs [NSAID], initial encounter; E78.5 Hyperlipidemia, unspecified; E11.9 Type 2 diabetes mellitus without complications; I73.9 Peripheral vascular disease, unspecified; F10.20 Alcohol dependence, uncomplicated; F17.210 Nicotine dependence, cigarettes, uncomplicated; Z79.01 Long term (current) use of anticoagulants; Z79.84 Long term (current) use of oral hypoglycemic drugs
CPT/HCPCS: 36415; 36430; 71045; 80048; 80053; 81003; 82272; 82550; 82962; 83735; 84484; 85014; 85018; 85025; 85610; 85730; 86850; 86900; 86901; 87635; 87797; 93005; 96365; 96376; 99284; 99285; G0378; P9016; C9113; J2250; J2704

== ENCOUNTER 2020-10-29 10:19 | Observation (INO) | payer MEDICARE, SELFPAY ==
[2020-06-21 17:58] VITALS: BMI 25.4
[2020-10-29] VITALS (24 sets, daily range): BP systolic 97–166; BP diastolic 55–89; PULSE 69–109; RESP 12–75; TEMP 36.4–37.4; O2SAT 95–100; BMI 23.6; BMI 24.5
--- NOTE | 2020-10-29 | PATH_ITS ---
[facility] Accession Number: [id number] . 01 Material submitted: . gastrointestinal site - RANDOM GASTRIC BIOPSIES . 01 Clinical history: . SENT OVER BY HIS DR. PT SAYS BLEEDING INTERNALLY . 02 Diagnosis: Random Stomach, Biopsies: Antral mucosa with reactive gastropathy. Negative for Helicobacter by immunohistochemistry. Negative for intestinal metaplasia. Negative for dysplasia and malignancy. [facility] 11/04/2020 1601 Local . 02 Electronically signed: . Italia Jerome MD, Pathologist NPI- [id number] . 01 Gross description: . RANDOM GASTRIC BIOPSIES: Received in formalin is 1 fragment(s) of oden, soft tissue measuring 0.3 x 0.2 x 0.2 cm submitted entirely in 1 cassette(s) /CHRIS 10/30/2020 2210 Local . 02 Microscopic: . An immunohistochemical stain was performed to evaluate for Helicobacter organisms and is negative. The control stain showed appropriate reactivity. . * This test was developed and its performance characteristics determined by [facility]. It has not been cleared or approved by the U.S. Food and Drug Administration. The FDA has determined that such clearance or approval is not necessary. This test is used for clinical purposes. It should not be regarded as investigational or for research. . 02 Pathologist provided ICD-10: R10.9 . 02 CPT . 694879, [id number] Performed at: 01 [facility] [address], [place], [place] [id number] MD Miles Smith MD Phone: [phone] Performed at: 02 [facility] [address] [place], [place] [id number] MD Italia Jerome MD Phone: [phone]
--- NOTE | 2020-10-29 10:41 | ED_ITS ---
HPI - GI Bleed <TERRY Angeles - Last Filed: 10/29/20 15:09> General Chief complaint: GI Bleed Stated complaint: Sent over by his DRIlda Pt says Bleeding internally Time Seen by Provider: 10/29/20 10:30 Source: patient Mode of arrival: Ambulatory Limitations: no limitations History of Present Illness HPI Narrative: 70yo male presents with a history of a gastric ulcer (9.4.20), alcoholism, diabetes, and lower extremity angioplasty currently on Plavix, presents emergency department per instruction of Dr. Devine for a hemoglobin of 6 that was measured last week. Patient states he has had 3-4 weeks of dark stools. He states he completely quit alcohol approximately 2 months ago but over the past few weeks has been drinking to 3 glasses of wine a day. The stools in return, he has intermittent black tarry stools with light colored stools. He reports intermittent bilateral leg cramping and occasional dizziness when he stands up quickly. He denies any vomiting, abdominal pain, chest pain, shortness of breath, vision changes, or any other concerns. Related Data Home Medications Medication Instructions Recorded Confirmed atorvastatin 10 mg PO DAILY 06/21/20 10/29/20 clopidogrel 75 mg PO DAILY 06/21/20 10/29/20 metformin 500 mg PO DAILY 06/21/20 10/29/20 Aspirin Low Dose 81 mg PO DAILY 10/29/20 10/29/20 milk thistle 140 mg PO BID 10/29/20 10/29/20 omega-3 fatty acids [[place] 3] mg PO DAILY 10/29/20 sennosides [Senna-Ex] 15 mg PO DAILY 10/29/20 10/29/20 Allergies Allergy/AdvReac Type Severity Reaction Status Date / Time No Known Drug Allergies Allergy Verified 10/29/20 14:48 Review of Systems <TERRY Angeles - Last Filed: 10/29/20 15:09> Review of Systems Narrative: REVIEW OF SYSTEMS: GENERAL: Denies fever. HENT: No head trauma. CARDIOVASCULAR: No chest pain. RESPIRATORY: No shortness of breath. GASTROINTESTINAL: Complains of black tarry stools, see HPI GENITOURINARY: No dysuria. MUSCULOSKELETAL: No pain. INTEGUMENTARY: No rash. NEURO: No numbness or tingling. Patient History <TERRY Angeles - Last Filed: 10/29/20 15:09> Medical History Alcohol dependence Angiodysplasia of colon Arterial insufficiency Benign neoplasm of ascending colon Benign neoplasm of cecum Diverticulosis GI bleed Hemorrhoids Melena Rectal bleed Rectal polyp Tobacco dependence Surgical History H/O colonoscopy H/O endoscopy History of back surgery History of knee replacement History of shoulder surgery Peripheral vascular angioplasty status with implants and grafts Family History Father CVA (cerebral vascular accident) Myocardial infarct Mother Diabetes mellitus Social History household members: spouse Smoking Status: Current every day smoker alcohol intake: current Smoking Status: Current every day smoker tobacco type: cigarettes alcohol intake frequency: 3 or more drinks per day Substance Use Type: does not use Exam <TERRY Angeles - Last Filed: 10/29/20 15:09> Initial Vital Signs Initial Vital Signs: Vital Signs Temperature 98.3 F 10/29/20 10:23 Pulse Rate 91 H 10/29/20 10:23 Respiratory Rate 15 10/29/20 10:23 Blood Pressure 163/74 H 10/29/20 10:23 Pulse Oximetry 99 10/29/20 10:23 PHYSICAL EXAMINATION: GENERAL: Awake and alert, no distress. HENT: Normocephalic, atraumatic. Hearing intact. Oral mucosa is pink and moist. EYES: Conjunctiva pink, sclera white, no periorbital swelling. CARDIOVASCULAR: S1 and S2 sounds normal. Regular rate and rhythm, no murmurs, clicks, or bruits. No pedal edema. RESPIRATORY: Normal respiratory rate, trachea midline, airway patent. No stridor, nasal flaring or accessory muscle use. Lungs are clear in all ron without wheeze, rhonchi, or crackles. GASTROINTESTINAL: Bowel sounds normoactive. Abdomen is soft and non-tender. No organomegaly, no palpable masses. RECTAL: Kathryn LIM presents during exam, no hemorrhoids palpated or visualized. Guaiac negative. GENITALURINARY: No flank tenderness. MUSCULOSKELETAL: Normal gait and coordination. Equal tone and mass bilaterally. EXTREMITIES: CMS intact. SKIN: Warm, dry, soft, appropriate color for ethnicity. No lesions, rashes, or wounds to visualized areas. NEURO: Alert and Oriented X 3. Good coordination. No ataxia, or sensory deficits, or cognitive issues. PSYCH: Appropriate affect and mood. <Danelle Portillo DO - Last Filed: 10/29/20 19:26> Initial Vital Signs Initial Vital Signs: Vital Signs Temperature 98.3 F 10/29/20 10:23 Pulse Rate 91 H 10/29/20 10:23 Respiratory Rate 15 10/29/20 10:23 Blood Pressure 163/74 H 10/29/20 10:23 Pulse Oximetry 99 10/29/20 10:23 Course <TERRY Angeles - Last Filed: 10/29/20 15:09> Course Course Narrative: 1147: I spoke with Dr. Campuzano, discussed patient's history, test, and test results. He recommended admission to Medicine as he plans to scope the patient. Recommended transfusion prior to scoping. 1205: I spoke with Dr. Lacey discussed patient's test, test results, plan of care as well as consultation with Neurology. He accepts for admission. Orders Ordered: ED Orders 10/29/20 10:31 EKG-12 Lead Stat 10/29/20 10:40 Complete Blood Count AUTO DIFF Stat Comprehensive Metabolic Panel Stat Partial Thromboplastin Time Stat Prothrombin Time INR Stat 10/29/20 12:17 Packed Cells Stat Type and Screen Stat 10/29/20 12:18 COVID19 Stat Atorvastatin Calcium (Atorvastatin 20 Mg Tablet) 10 mg PO BEDTIME AMRIELOS Lactated Ringer's (Lactated Ringers) 1,000 mls @ 42 mls/hr IV NOW ONE Stop: 10/30/20 14:35 Last Infusion: 10/29/20 16:30 Dose: 0 mls/hr Documented by: [email or web address] Admin: 10/29/20 14:47 Dose: 42 mls/hr Documented by: [email or web address] Metformin HCl (Metformin Xr 500 Mg Tablet) 500 mg PO DAILY MARIELOS Nicotine (Nicotine 21 Mg Patch) 21 mg TOP DAILY PRN PRN Reason: smoking withdrawal Pantoprazole Sodium (Pantoprazole 20 Mg Tablet) 20 mg PO BID MARIELOS Sennosides (Sennosides 8.6 Mg Tablet) 17.2 mg PO DAILY MARIELOS Discontinued Medications Fentanyl (Fentanyl 250 Mcg/5 Ml Inj) 250 mcg IV NOW ONE Stop: 10/29/20 15:08 Last Admin: 10/29/20 15:07 Dose: 250 mcg Documented by: ROSANNA Lidocaine HCl (Lidocaine 4% Soln 50 Ml) 20 ml TOP NOW ONE Stop: 10/29/20 15:08 Last Admin: 10/29/20 15:07 Dose: 20 ml Documented by: ROSANNA Midazolam HCl (Midazolam 5 Mg/5 Ml Vial) 5 mg IV NOW ONE Stop: 10/29/20 15:09 Last Admin: 10/29/20 15:08 Dose: 5 mg Documented by: ROSANNA Pantoprazole Sodium (Pantoprazole 40 Mg Vial) 80 mg IV NOW ONE Stop: 10/29/20 10:55 Last Admin: 10/29/20 11:15 Dose: 80 mg Documented by: [email or web address] Vital Signs Vital signs: Vital Signs - 8 hr 10/29/20 11:30 10/29/20 11:32 10/29/20 12:00 Pulse Rate 72 73 69 Respiratory Rate 23 14 13 Blood Pressure 158/74 H Pulse Oximetry 100 100 100 <Danelle Portillo, - Last Filed: 10/29/20 19:26> Orders Ordered: ED Orders 10/29/20 10:31 EKG-12 Lead Stat 10/29/20 10:40 Complete Blood Count AUTO DIFF Stat Comprehensive Metabolic Panel Stat Partial Thromboplastin Time Stat Prothrombin Time INR Stat 10/29/20 12:17 Packed Cells Stat Type and Screen Stat 10/29/20 12:18 COVID19 Stat Atorvastatin Calcium (Atorvastatin 20 Mg Tablet) 10 mg PO BEDTIME MARIELOS Lactated Ringer's (Lactated Ringers) 1,000 mls @ 42 mls/hr IV NOW ONE Stop: 10/30/20 14:35 Last Infusion: 10/29/20 16:30 Dose: 0 mls/hr Documented by: [email or web address] Admin: 10/29/20 14:47 Dose: 42 mls/hr Documented by: RAMONE Metformin HCl (Metformin Xr 500 Mg Tablet) 500 mg PO DAILY MARIELOS Nicotine (Nicotine 21 Mg Patch) 21 mg TOP DAILY PRN PRN Reason: smoking withdrawal Pantoprazole Sodium (Pantoprazole 20 Mg Tablet) 20 mg PO BID MARIELOS Sennosides (Sennosides 8.6 Mg Tablet) 17.2 mg PO DAILY [facility] Discontinued Medications Fentanyl (Fentanyl 250 Mcg/5 Ml Inj) 250 mcg IV NOW ONE Stop: 10/29/20 15:08 Last Admin: 10/29/20 15:07 Dose: 250 mcg Documented by: ROSANNA Lidocaine HCl (Lidocaine 4% Soln 50 Ml) 20 ml TOP NOW ONE Stop: 10/29/20 15:08 Last Admin: 10/29/20 15:07 Dose: 20 ml Documented by: ROSANNA Midazolam HCl (Midazolam 5 Mg/5 Ml Vial) 5 mg IV NOW ONE Stop: 10/29/20 15:09 Last Admin: 10/29/20 15:08 Dose: 5 mg Documented by: ROSANNA Pantoprazole Sodium (Pantoprazole 40 Mg Vial) 80 mg IV NOW ONE Stop: 10/29/20 10:55 Last Admin: 10/29/20 11:15 Dose: 80 mg Documented by: BTONER Vital Signs Vital signs: Vital Signs - 8 hr 10/29/20 11:30 10/29/20 11:32 10/29/20 12:00 Pulse Rate 72 73 69 Respiratory Rate 23 14 13 Blood Pressure 158/74 H Pulse Oximetry 100 100 100 MDM - GI Bleed <TERRY Angeles - Last Filed: 10/29/20 15:09> Medical Records Attestation: I reviewed the patient's medical records. Lab Data Attestation: I reviewed the patient's lab results. Result diagrams: 10/29/20 10:40 10/29/20 10:40 Labs: Lab Results 10/29/20 10/29/20 10/29/20 Range/Units 10:40 10:40 10:40 WBC 5.0 (4.5-11.0) X10^3/uL RBC 2.55 L (4.5-5.9) X10^6/uL Hgb 6.8 L* (13.5-17.5) g/dL Hct 21.5 L (41-53) % MCV 84.4 (80-100) fL MCH 26.6 (26-34) PG MCHC 31.5 (30-36) % RDW 17.3 H (11.6-14.8) % Plt Count 166 (150-400) X10^3/uL Neut % (Auto) 66.3 (50-75) % Lymph % (Auto) 17.3 L (25-40) % [place] % (Auto) 13.1 (3-14) % Eos % (Auto) 1.8 L (2-4) % Baso % (Auto) 1.5 (0-2) % Neut # (Auto) 3300 (3219-0278) /uL Lymph # (Auto) 900 L (1040-2244) /uL [place] # (Auto) 700 (0-900) /uL Eos # (Auto) 100 (0-450) /uL Baso # (Auto) 100 (0-100) /uL RBC Morphology See Polychromasia 1+ H Hypochromasia 1+ H Anisocytosis 2+ H PT 13.2 H (10.1-12.7) SECONDS INR 1.2 (0.9-1.3) APTT 34 D (26.4-36.2) SECONDS Sodium 136 L (137-145) mmol/L Potassium 4.5 (3.4-5.1) mmol/L Chloride 105 (98-107) mmol/L Carbon Dioxide 25 (22-32) mmol/L BUN 20 (9-20) mg/dL Creatinine 0.85 (0.66-1.25) mg/dL Estimated GFR > 60.0 (>60) mL/min BUN/Creatinine Ratio 23.5 H (6-22) Glucose 110 (80-110) mg/dL Calcium 8.6 (8.4-10.2) mg/dL Total Bilirubin 0.4 (0.2-1.3) mg/dL AST 29 (17-59) IU/L ALT 23 (<50) IU/L Alkaline Phosphatase 65 (38-126) U/L Total Protein 6.8 (6.3-8.2) g/dL Albumin 3.9 (3.5-5.0) g/dL Globulin 2.9 (1.7-4.1) g/dL Albumin/Globulin Ratio 1.3 (1.0-2.8) Urine Dip Bedside Urine Glucose Negative Bedside Urine Bilirubin - Negative Bedside Urine Ketone - Negative Urine Specific [place] 1.015 Bedside Urine Occult Blood - Negative Bedside Urine pH 6 Bedside Urine Protein - Negative Bedside Urine Urobilinogen - Negative Bedside Urine Nitrite - Negative Bedside Urine Leukocytes - Negative Esterase ECG Data Interpretation: 1041: Sinus rhythm, rate 69, AR interval 198, QTC 428. No ST elevation or ST depression. No T-wave abnormality. Artifact noted in V3 and V4. EKG viewed by Dr. Portillo per protocol. MDM Narrative Medical decision making narrative: 70-year-old male with a history of alcohol abuse, currently on Plavix, complains of dark stools for the past few weeks and was instructed to present to the emergency department due to low hemoglobin. While patient is guaiac negative at this time, his hemoglobin is 6.8, he is hemodynamically stable, non tachycardic and afebrile. However given his risk factors and reports of dark tarry stools as well as reports of resuming alcohol use, this is concerning for a GI bleed. Patient was given Protonix in the emergency department. General surgeon Dr. Campuzano consulted, recommended keeping patient NPO for scope, recommended transfusion prior to scoping. Patient was admitted to Dr. Lacey, hospitalist, for further treatment evaluation. Type and screen ordered as well as 1 unit of RBCs. I discussed benefits and risks with patient, he agreed to admission and blood transfusion. <Danelle Portillo, DO - Last Filed: 10/29/20 19:26> Lab Data Labs: Lab Results 10/29/20 10/29/20 10/29/20 Range/Units 10:40 10:40 10:40 WBC 5.0 (4.5-11.0) X10^3/uL RBC 2.55 L (4.5-5.9) X10^6/uL Hgb 6.8 L* (13.5-17.5) g/dL Hct 21.5 L (41-53) % MCV 84.4 (80-100) fL MCH 26.6 (26-34) PG MCHC 31.5 (30-36) % RDW 17.3 H (11.6-14.8) % Plt Count 166 (150-400) X10^3/uL Neut % (Auto) 66.3 (50-75) % Lymph % (Auto) 17.3 L (25-40) % [place] % (Auto) 13.1 (3-14) % Eos % (Auto) 1.8 L (2-4) % Baso % (Auto) 1.5 (0-2) % Neut # (Auto) 3300 (0934-6194) /uL Lymph # (Auto) 900 L (4232-6593) /uL [place] # (Auto) 700 (0-900) /uL Eos # (Auto) 100 (0-450) /uL Baso # (Auto) 100 (0-100) /uL RBC Morphology See Polychromasia 1+ H Hypochromasia 1+ H Anisocytosis 2+ H PT 13.2 H (10.1-12.7) SECONDS INR 1.2 (0.9-1.3) APTT 34 D (26.4-36.2) SECONDS Sodium 136 L (137-145) mmol/L Potassium 4.5 (3.4-5.1) mmol/L Chloride 105 (98-107) mmol/L Carbon Dioxide 25 (22-32) mmol/L BUN 20 (9-20) mg/dL Creatinine 0.85 (0.66-1.25) mg/dL Estimated GFR > 60.0 (>60) mL/min BUN/Creatinine Ratio 23.5 H (6-22) Glucose 110 (80-110) mg/dL Calcium 8.6 (8.4-10.2) mg/dL Total Bilirubin 0.4 (0.2-1.3) mg/dL AST 29 (17-59) IU/L ALT 23 (<50) IU/L Alkaline Phosphatase 65 (38-126) U/L Total Protein 6.8 (6.3-8.2) g/dL Albumin 3.9 (3.5-5.0) g/dL Globulin 2.9 (1.7-4.1) g/dL Albumin/Globulin Ratio 1.3 (1.0-2.8) Urine Dip Bedside Urine Glucose Negative Bedside Urine Bilirubin - Negative Bedside Urine Ketone - Negative Urine Specific [place] 1.015 Bedside Urine Occult Blood - Negative Bedside Urine pH 6 Bedside Urine Protein - Negative Bedside Urine Urobilinogen - Negative Bedside Urine Nitrite - Negative Bedside Urine Leukocytes - Negative Esterase Discharge Plan Departure Patient Disposition: Home Clinical Impression: Acute GI bleeding Anemia Qualifiers: Anemia type: unspecified type Qualified Code(s): D64.9 - Anemia, unspecified <Danelle Portillo DO - Last Filed: 10/29/20 19:26> Cosign ED Attending Cosignature Attestation: I was immediately available in the department for consultation. Documentation has been reviewed. I agree with assessment and plan.
[2020-10-29 11:14] LABS: Basophils Absolute Auto 100 /uL (0-100); Basophils Percent Auto 1.5 % (0-2); Eosinophils Absolute Auto 100 /uL (0-450); Eosinophils Percent Auto 1.8 % (2-4); Hematocrit 21.5 % (41-53); Lymphocytes Absolute Auto 900 /uL (1100-4500); Lymphocytes Percent Auto 17.3 % (25-40); Mean Corpuscular HGB Conc 31.5 % (30-36); Mean Corpuscular Hemoglobin 26.6 PG (26-34); Mean Corpuscular Volume 84.4 fL (80-100); Monocytes Absolute Auto 700 /uL (0-900); Monocytes Percent Auto 13.1 % (3-14); Neutrophils Absolute Auto 3300 /uL (1500-7000); Neutrophils Percent Auto 66.3 % (50-75); Platelet Count 166 X10^3/uL (150-400); Red Blood Cell Count 2.55 X10^6/uL (4.5-5.9); Red Cell Distribution Width 17.3 % (11.6-14.8)
[2020-10-29] MEDS: PANTOPRAZOLE 40 MG VIAL 80 MG IV (11:15)
[2020-10-29 11:18] LABS: Add Manual Diff / Slide Review SLIDE REVIEW; Hemoglobin 6.8 g/dL (13.5-17.5)
[2020-10-29 11:24] LABS: INR 1.2 (0.9-1.3); Prothrombin Time 13.2 SECONDS (10.1-12.7)
[2020-10-29 11:26] LABS: PTT Partial Thromboplastin Tim 34 SECONDS (26.4-36.2)
[2020-10-29 11:27] LABS: Alanine Aminotransferase 23 IU/L (<50); Albumin 3.9 g/dL (3.5-5.0); Albumin Globulin Ratio 1.3 (1.0-2.8); Alkaline Phosphatase 65 U/L (38-126); Aspartate Aminotransferase 29 IU/L (17-59); BUN Creatinine Ratio 23.5 (6-22); Bilirubin Total 0.4 mg/dL (0.2-1.3); Blood Urea Nitrogen 20 mg/dL (9-20); Calcium 8.6 mg/dL (8.4-10.2); Carbon Dioxide 25 mmol/L (22-32); Chloride 105 mmol/L (98-107); Estimated Glomerular Filt Rate > 60.0 mL/min (>60); Globulin 2.9 g/dL (1.7-4.1); Glucose 110 mg/dL (80-110); HEMOLYSIS < 15 (0-50); Potassium 4.5 mmol/L (3.4-5.1); Sodium 136 mmol/L (137-145); Total Protein 6.8 g/dL (6.3-8.2)
[2020-10-29 11:37] LABS: Anisocytosis 2+
[2020-10-29 11:38] LABS: Hypochromasia 1+
[2020-10-29 11:39] LABS: Polychromasia 1+; RBC Morphology See
--- NOTE | 2020-10-29 13:03 | PC.NURSE ---
pt feels dizzy in night.
[2020-10-29 13:15] LABS: COVID19 -Nasal RAPID Negative (Negative)
--- NOTE | 2020-10-29 14:33 | PM.CN ---
History of Present Illness Consult details Date Patient Seen: 10/29/20 Time Patient Seen: 14:33 Chief complaint: Sent over by his DR. Pt says Bleeding internally Narrative: 70-year-old alcoholic male on Plavix seen in consultation for a GI bleed. Normotensive mild tachycardia, hemoglobin 6.8 today. He has a history of gastric ulcers most recent esophagoduodenoscopy June 2020 demonstrated 2 ulcers in the distal aspect of the stomach pathology demonstrated benign gastritis negative for H pylori. He was treated with iron supplementation and he antacid medication. Over the past 1 month he has developed dark tarry stools and was sent to the emergency room today for further evaluation. No hematemesis no epigastric pain he had a reportedly normal colonoscopy 2 years ago. Meds Home Medications and Allergies Home Medications Medication Instructions Recorded Confirmed Type atorvastatin 10 mg PO DAILY 06/21/20 10/29/20 History clopidogrel 75 mg PO DAILY 06/21/20 10/29/20 History metformin 500 mg PO DAILY 06/21/20 10/29/20 History milk thistle 140 mg PO BID 10/29/20 10/29/20 History omega-3 fatty acids [[place] 3] mg PO DAILY 10/29/20 History sennosides [Senna-Ex] 15 mg PO DAILY 10/29/20 10/29/20 History Allergies Allergy/AdvReac Type Severity Reaction Status Date / Time No Known Drug Allergies Allergy Verified 10/29/20 10:28 Review of Systems Review of Systems Narrative: A 10 point review of systems is negative except as noted in the HPI Exam Vital Signs (past 8 hours): - 10/29/20 10:23 10/29/20 10:26 10/29/20 10:30 Temperature 98.3 F Pulse Rate 91 H 80 76 Respiratory Rate 15 Blood Pressure 163/74 H 148/83 H Pulse Oximetry 99 99 99 10/29/20 11:00 10/29/20 11:01 10/29/20 11:30 Temperature Pulse Rate 73 71 72 Respiratory Rate 23 Blood Pressure 142/69 H Pulse Oximetry 95 95 100 10/29/20 11:32 10/29/20 12:00 10/29/20 13:05 Temperature Pulse Rate 73 69 69 Respiratory Rate 14 13 18 Blood Pressure 158/74 H 166/89 H Pulse Oximetry 100 100 98 10/29/20 13:10 10/29/20 13:19 Temperature 98.3 F Pulse Rate 109 H 109 H Respiratory Rate 16 16 Blood Pressure 153/79 H 153/79 H Pulse Oximetry 100 100 Oxygen Delivery Method Room Air Oxygen Flow Rate 0 Narrative Exam Narrative: General-no acute distress, well nourished adult male HEENT-moist mucous membranes, no scleral icterus Neck-supple, no lymphadenopathy Chest- non labored respirations, clear to auscultation bilaterally Cardiac-regular rate no peripheral edema Abdomen-soft, nontender, non distended Extremities-warm, well perfused Neurological-alert and oriented, no focal deficits Objective Labs Result Diagrams: 10/29/20 10:40 10/29/20 10:40 Labs: Laboratory Results - last 24 hr 10/29/20 10/29/20 10/29/20 10:40 10:40 10:40 WBC 5.0 RBC 2.55 L Hgb 6.8 L* Hct 21.5 L MCV 84.4 MCH 26.6 MCHC 31.5 RDW 17.3 H Plt Count 166 Neut % (Auto) 66.3 Lymph % (Auto) 17.3 L [place] % (Auto) 13.1 Eos % (Auto) 1.8 L Baso % (Auto) 1.5 Neut # (Auto) 3300 Lymph # (Auto) 900 L [place] # (Auto) 700 Eos # (Auto) 100 Baso # (Auto) 100 RBC Morphology See Polychromasia 1+ H Hypochromasia 1+ H Anisocytosis 2+ H PT 13.2 H INR 1.2 APTT 34 D Sodium 136 L Potassium 4.5 Chloride 105 Carbon Dioxide 25 BUN 20 Creatinine 0.85 Estimated GFR > 60.0 BUN/Creatinine Ratio 23.5 H Glucose 110 Calcium 8.6 Total Bilirubin 0.4 AST 29 ALT 23 Alkaline Phosphatase 65 Total Protein 6.8 Albumin 3.9 Globulin 2.9 Albumin/Globulin Ratio 1.3 SARS-CoV-2 (PCR) Blood Type Antibody Screen Crossmatch 10/29/20 10/29/20 12:17 12:18 WBC RBC Hgb Hct MCV MCH MCHC RDW Plt Count Neut % (Auto) Lymph % (Auto) [place] % (Auto) Eos % (Auto) Baso % (Auto) Neut # (Auto) Lymph # (Auto) [place] # (Auto) Eos # (Auto) Baso # (Auto) RBC Morphology Polychromasia Hypochromasia Anisocytosis PT INR APTT Sodium Potassium Chloride Carbon Dioxide BUN Creatinine Estimated GFR BUN/Creatinine Ratio Glucose Calcium Total Bilirubin AST ALT Alkaline Phosphatase Total Protein Albumin Globulin Albumin/Globulin Ratio SARS-CoV-2 (PCR) Negative Blood Type A Positive Antibody Screen Positive Crossmatch See Detail Assessment & Plan Assessment & Plan narrative: 70-year-old male, on Plavix history of benign gastric ulcers with a upper GI bleed hemodynamically stable. Recommended that we proceed with a esophagoduodenoscopy for diagnostic and therapeutic purpose. Technical details of the procedure were discussed with him. Procedural risks including bleeding infection intestinal perforation need for further procedure were discussed. His questions have been answered will proceed with an EGD this afternoon. He will require transfusion and observation postprocedure.
[2020-10-29] MEDS: LACTATED RINGERS 1,000 ML 42 ML IV (14:47)
[2020-10-29] MEDS: fentaNYL 250 MCG/5 ML INJ IV (15:07)
[2020-10-29] MEDS: LIDOCAINE 4% SOLN 50 ML 20 ML TOP (15:07)
[2020-10-29] MEDS: MIDAZOLAM 5 MG/5 ML VIAL IV (15:08)
--- NOTE | 2020-10-29 15:22 | PM.OP.ENDO ---
Operative Date/Time/Diagnoses Date of procedure: 10/29/20 Time of procedure: 15:22 Pre-op diagnosis: anemia Post-op diagnosis: other (gastric ulcer) Procedure & Clinicians Study performed: Esophagoduodenoscopy Same procedure as scheduled: Yes Indications: 70-year-old alcoholic male on Plavix presents with melanotic stool and anemia. History of prior benign gastric ulcers Surgeon: Sang Campuzano Procedure Notes Procedure in detail: Patient placed in left lateral decubitus position. Time out was performed. Procedural sedation was administered with Versed and Fentanyl. A bite block was placed. the scope was inserted into the mouth and advanced through the esophagus and into the stomach. The pylorus was intubated and the duodenum was normal to the 2nd portion. The scope was retroflexed within the stomach and there was a small hiatal hernia. There was a 3 mm ulcer in the antrum of the stomach non bleeding no visible vessel or clot. Several biopsies around the ulcer were taken with forceps. The scope was withdrawn into the esophagus the Z line was seen at 40 cm from the incisions. There was no Arana's esophagitis or masses or strictures. Stomach was desufflated and scope removed. Patient tolerated procedure well. Findings: gastric ulcer Specimen(s): other (Gastric biopsy) Complications: none Impression: Nonbleeding gastric ulcer Post-procedure Recommendations: Continue medication(s) (Omeprazole) Plan for aftercare: Return to [facility] for ongoing observation and blood transfusion as needed Follow up: as needed Disposition: same day surgery
--- NOTE | 2020-10-29 18:38 | P.HP_ITS ---
History of Present Illness History of Present Illness Date Patient Seen: 10/29/20 Time Patient Seen: 17:00 Chief complaint: Sent over by his DR. Pt says Bleeding internally Narrative: Patient is a 70-year-old male smoker, history of alcohol dependency, diabetes, peripheral artery disease, peptic ulcer disease with previous admission for GI bleed sent by his provider to emergency department due to severe anemia associated with recent black tarry stools. Patient was admitted to [facility] in June 2020 for bleeding which was found due to gastric ulcers. He was discharged on triple antibiotic therapy plus pantoprazole. He ventrally. Pantoprazole. He also stopped alcohol use for a couple of months. He has continued to smoke. He is on aspirin and Plavix for the past year although states he had been previously instructed to stop 1 of the anti-platelet agents after 6 months post stenting and revascularization surgery. Patient has noticed dark tardy stools for the past couple of weeks. His hemoglobin when checked on [place] was 6.9 and it was 6.8 at our emergency department. Patient was written for transfusion and Dr. Campuzano was consulted for EGD. He has been hemodynamically stable without hypotension or tachycardia. He denies vomiting or abdominal pain. Patient History Medical History Alcohol dependence Angiodysplasia of colon Arterial insufficiency Benign neoplasm of ascending colon Benign neoplasm of cecum Diverticulosis GI bleed Hemorrhoids Melena Rectal bleed Rectal polyp Tobacco dependence Surgical History H/O colonoscopy H/O endoscopy History of back surgery History of knee replacement History of shoulder surgery Peripheral vascular angioplasty status with implants and grafts Family & Social History Family History Father CVA (cerebral vascular accident) Myocardial infarct Mother Diabetes mellitus Social History: household members spouse Prior Living Arrangements House Safety & Behavioral: Feels Safe in Current Yes Environment Been Physically Hurt or No Threatened By a Person Suicidal Ideation Description None Suicide Plan Description No Plan Tobacco & Substance use: Tobacco type cigarettes Smoking Status Current every day smoker Smoking packs per day 0.5 alcohol intake current alcohol intake frequency 3 or more drinks per day Substance Use Type does not use Meds Home Medications and Allergies Home Medications Medication Instructions Recorded Confirmed Type atorvastatin 10 mg PO DAILY 06/21/20 10/29/20 History clopidogrel 75 mg PO DAILY 06/21/20 10/29/20 History metformin 500 mg PO DAILY 06/21/20 10/29/20 History Aspirin Low Dose 81 mg PO DAILY 10/29/20 10/29/20 History milk thistle 140 mg PO BID 10/29/20 10/29/20 History omega-3 fatty acids [[place] 3] mg PO DAILY 10/29/20 History sennosides [Senna-Ex] 15 mg PO DAILY 10/29/20 10/29/20 History Allergies Allergy/AdvReac Type Severity Reaction Status Date / Time No Known Drug Allergies Allergy Verified 10/29/20 14:48 Review of Systems Review of Systems ROS: Yes All systems reviewed with the patient and are negative except as otherw ise documented Exam Vital Signs (past 8 hours): - 10/29/20 11:00 10/29/20 11:01 10/29/20 11:30 Temperature Pulse Rate 73 71 72 Respiratory Rate 23 Blood Pressure 142/69 H Pulse Oximetry 95 95 100 10/29/20 11:32 10/29/20 12:00 10/29/20 13:05 Temperature Pulse Rate 73 69 69 Respiratory Rate 14 13 18 Blood Pressure 158/74 H 166/89 H Pulse Oximetry 100 100 98 10/29/20 13:10 10/29/20 13:19 10/29/20 14:44 Temperature 98.3 F 97.6 F Pulse Rate 109 H 109 H 78 Respiratory Rate 16 16 18 Blood Pressure 153/79 H 153/79 H 154/84 H Pulse Oximetry 100 100 100 10/29/20 15:26 10/29/20 15:31 10/29/20 15:36 Temperature 97.7 F Pulse Rate 74 74 75 Respiratory Rate 12 12 16 Blood Pressure 109/66 116/64 104/58 L Pulse Oximetry 98 98 98 10/29/20 15:41 10/29/20 15:46 10/29/20 15:51 Temperature 98.0 F Pulse Rate 76 71 76 Respiratory Rate 14 16 16 Blood Pressure 105/69 121/68 124/67 Pulse Oximetry 99 96 96 10/29/20 16:55 Temperature Pulse Rate 73 Respiratory Rate 20 Blood Pressure 132/74 Pulse Oximetry 100 Oxygen Delivery Method Room Air Oxygen Flow Rate 0 Narrative Exam Narrative: General: Alert and cooperative male in no acute distress HEENT: Nontraumatic, anicteric, oropharynx unremarkable Neck: No lymphadenopathy Lungs: Clear to auscultation Heart: Regular rhythm Abdomen: Soft and nontender Extremities: Warm, dry, nonedematous, 1+ DP and PT in RLE and 2+ DP and PT in LLE Neurological: Fully oriented, affect normal, speech normal, nonfocal Objective Labs Result Diagrams: 10/29/20 10:40 10/29/20 10:40 Labs: Laboratory Results - last 24 hr 10/29/20 10/29/20 10/29/20 10:40 10:40 10:40 WBC 5.0 RBC 2.55 L Hgb 6.8 L* Hct 21.5 L MCV 84.4 MCH 26.6 MCHC 31.5 RDW 17.3 H Plt Count 166 Neut % (Auto) 66.3 Lymph % (Auto) 17.3 L [place] % (Auto) 13.1 Eos % (Auto) 1.8 L Baso % (Auto) 1.5 Neut # (Auto) 3300 Lymph # (Auto) 900 L [place] # (Auto) 700 Eos # (Auto) 100 Baso # (Auto) 100 RBC Morphology See Polychromasia 1+ H Hypochromasia 1+ H Anisocytosis 2+ H PT 13.2 H INR 1.2 APTT 34 D Sodium 136 L Potassium 4.5 Chloride 105 Carbon Dioxide 25 BUN 20 Creatinine 0.85 Estimated GFR > 60.0 BUN/Creatinine Ratio 23.5 H Glucose 110 Calcium 8.6 Total Bilirubin 0.4 AST 29 ALT 23 Alkaline Phosphatase 65 Total Protein 6.8 Albumin 3.9 Globulin 2.9 Albumin/Globulin Ratio 1.3 SARS-CoV-2 (PCR) Blood Type Antibody Screen Antibody Identification Crossmatch 10/29/20 10/29/20 12:17 12:18 WBC RBC Hgb Hct MCV MCH MCHC RDW Plt Count Neut % (Auto) Lymph % (Auto) [place] % (Auto) Eos % (Auto) Baso % (Auto) Neut # (Auto) Lymph # (Auto) [place] # (Auto) Eos # (Auto) Baso # (Auto) RBC Morphology Polychromasia Hypochromasia Anisocytosis PT INR APTT Sodium Potassium Chloride Carbon Dioxide BUN Creatinine Estimated GFR BUN/Creatinine Ratio Glucose Calcium Total Bilirubin AST ALT Alkaline Phosphatase Total Protein Albumin Globulin Albumin/Globulin Ratio SARS-CoV-2 (PCR) Negative Blood Type A Positive Antibody Screen Positive Antibody Identification Anti-e Crossmatch See Detail Assessment & Plan Assessment & Plan narrative: Patient is a 70-year-old male smoker, history of alcohol dependency, diabetes, peripheral artery disease, peptic ulcer disease with previous admission for GI bleed sent by his provider to emergency department due to severe anemia associated with recent black tarry stools. 1. Acute blood loss anemia, present on admission, active -patient presents with 2 weeks of melena stools due to gastric ulcer -risk factors are smoking, EtOH, dual anti-platelet therapy, he was previously treated with triple antibiotic therapy for H pylori -EGD showed 3 mm ulcer in antrum of stomach without acute bleeding -transfuse PRBC to get hemoglobin close to 8 -Protonix, patient should stay on Protonix indefinitely -hold anti-platelet agents, probably should restart in 2 weeks on just the clopidogrel and drop the aspirin 2. Alcohol abuse/dependency -no history of acute withdrawal -alcohol cessation advised 3. Cigarette dependency -advised to quit smoking -nicotine patch 4. Type 2 diabetes -continue metformin 500 mg daily 5. Peripheral artery disease -continue atorvastatin 10 mg q.d. Patient admitted to observation service and likely will be able to discharge home tomorrow if medically stable. Quality VTE Deep Vein Thrombosis/Pulmonary Embolism Present on Admission: No
[2020-10-29] MEDS: PANTOPRAZOLE 20 MG TABLET PO (20:56)
[2020-10-30 00:58] VITALS: BP 130/69; PULSE 73; RESP 18; TEMP 36.5; O2SAT 98
[2020-10-30 01:50] VITALS: BP 125/68; PULSE 72; RESP 16; TEMP 36.9
[2020-10-30 01:53] VITALS: BP 116/56; PULSE 74; RESP 16; TEMP 36.6
[2020-10-30 01:55] VITALS: BP 140/78; PULSE 71; RESP 18; TEMP 37
--- NOTE | 2020-10-30 02:13 | PC.NURSE ---
pt received first unit of blood and tolerated well, 2nd unit started, vitals stable, pt tolerating well, hospitalist requested to wait for 0500 labs prior to starting 3rd unit. Nurse will continue to monitor pt while administering 2nd unit, pt reports no change since starting first unit and is lying in bed watching TV.
[2020-10-30 04:26] VITALS: BP 140/78; PULSE 71; RESP 18; TEMP 37; O2SAT 99
[2020-10-30 06:28] LABS: Add Manual Diff / Slide Review NO; Basophils Absolute Auto 100 /uL (0-100); Basophils Percent Auto 0.9 % (0-2); Eosinophils Absolute Auto 300 /uL (0-450); Eosinophils Percent Auto 4.3 % (2-4); Hematocrit 25.1 % (41-53); Hemoglobin 8.4 g/dL (13.5-17.5); Lymphocytes Absolute Auto 1100 /uL (1100-4500); Mean Corpuscular HGB Conc 33.6 % (30-36); Mean Corpuscular Volume 83.4 fL (80-100); Monocytes Absolute Auto 800 /uL (0-900); Monocytes Percent Auto 12.9 % (3-14); Neutrophils Absolute Auto 3700 /uL (1500-7000); Neutrophils Percent Auto 62.9 % (50-75); Platelet Count 149 X10^3/uL (150-400); Red Blood Cell Count 3.01 X10^6/uL (4.5-5.9); Red Cell Distribution Width 16.5 % (11.6-14.8); White Blood Cell Count 5.9 X10^3/uL (4.5-11.0)
[2020-10-30 07:56] VITALS: BP 132/68; PULSE 71; RESP 16; TEMP 36.1; O2SAT 96
[2020-10-30] MEDS: SENNOSIDES 8.6 MG TABLET 17.2 MG PO (09:37)
[2020-10-30] MEDS: PANTOPRAZOLE 20 MG TABLET PO (09:37)
[2020-10-30] MEDS: METFORMIN XR 500 MG TABLET PO (09:37)
--- NOTE | 2020-10-30 11:16 | PC.NURSE ---
Pt is dressed and ready for discharge home with Spouse. HL removed. Went over d/c instructions with Pt - discussed d/c meds, time of last dose, reviewed stroke education, discussed not drinking or smoking. Encouraged Pt to drink plenty of fluids to prevent constipation or dehydration. Prescription sent to [facility] on [place] [address]. Pt's Spouse already has reservations for the afternoon ferry and both deny further questions. Pt now eating his early lunch and will be taken out via w/c by [employer] to POV with Spouse and all belongings.
--- NOTE | 2020-10-30 13:40 | CM.DANOTE ---
Brief Assessment Note Patient is a 70 year old male who was admitted on 10/29/20 for Internal Bleeding. Pt has [facility] and [employer] for insurance and his PCP is Dr. Venancio Devine. EMR was reviewed. Per MD, pt with possible G.I. bleed and to have Surgeon Consult. Per Surgeon, completed EGD yesterday and results were not concerning to stay in the hospital at this time. Per MD, pt is medically stable to discharge home today with no identified barriers to discharge. Pt was last admitted for similar in Jun 2020 and pt and spouse live on [facility] and are quite active and independent at pt had been able to d/c home with no needs in Jun. Per RN, no concerns at this time and pt and spouse catching an early ferry back to [facility]. Plan: Patient discharged home via spouse POV back to [place] with outpt follow up. No SW needs at this time. GHADA Catalan
--- NOTE | 2020-10-30 13:44 | P.DS_ITS ---
History of Present Illness History of Present Illness Chief complaint: Sent over by his DRIlda Pt says Bleeding internally Narrative: Patient is a 70-year-old male smoker, history of alcohol dependency, diabetes, peripheral artery disease, peptic ulcer disease with previous admission for GI bleed sent by his provider to emergency department due to severe anemia associated with recent black tarry stools. Patient was admitted to [facility] in June 2020 for bleeding which was found due to gastric ulcers. He was discharged on triple antibiotic therapy plus pantoprazole. He ventrally. Pantoprazole. He also stopped alcohol use for a couple of months. He has continued to smoke. He is on aspirin and Plavix for the past year although states he had been previously instructed to stop 1 of the anti-platelet agents after 6 months post stenting and revascularization surgery. Patient has noticed dark tardy stools for the past couple of weeks. His hemoglobin when checked on [place] was 6.9 and it was 6.8 at our emergency department. Patient was written for transfusion and Dr. Campuzano was consulted for EGD. He has been hemodynamically stable without hypotension or tachycardia. He denies vomiting or abdominal pain. Discharge Providers Provider Date of admission: 10/29/20 12:13 Discharge Date: 10/30/20 Primary care physician: Venancio Devine MD Discharge provider: Raúl Lacey MD Summary Hospital Course Discharge Diagnosis: 1. Acute blood loss anemia 2. Gastric ulcer, likely source of bleed 3. Alcohol abuse/dependency 4. Cigarette dependency 5. Type 2 diabetes, well controlled 6. Peripheral artery disease Patient was admitted due to severe blood loss anemia associated with GI bleed. He was hemodynamically stable. He was started on IV Protonix. His anti-platel et agents were stopped and he received 2 units PRBC. Hemoglobin is 8.4 on morning of discharge. He has not had any recurrent bleed. Dr. Campuzano performed EGD which showed a nonbleeding gastric ulcer but that is likely the source of his bleed. Patient should stay on PPI therapy indefinitely since this is patient's 2nd hospitalization in the past year for GI bleed. In regards to risk factors, he is encouraged to stop smoking and stop alcohol use. He is instructed to hold his aspirin and Plavix for 1 week then start back on just the Plavix. Status at Discharge Cognitive/behavioral status at discharge: oriented Functional status at discharge: independent ambulation Overall status at discharge: patient is progressing back to baseline Time Spent with Patient Time spent: Less than 30 minutes Exam Vital Signs (past 8 hours): - 10/30/20 07:56 Temperature 97.0 F L Pulse Rate 71 Respiratory Rate 16 Blood Pressure 132/68 Pulse Oximetry 96 Oxygen Delivery Method Room Air Oxygen Flow Rate 0 Objective Labs Result Diagrams: 10/30/20 05:31 10/29/20 10:40 Labs: Laboratory Results - last 24 hr 10/29/20 10/30/20 12:17 05:31 WBC 5.9 RBC 3.01 L Hgb 8.4 L Hct 25.1 L MCV 83.4 MCH 28.0 MCHC 33.6 RDW 16.5 H Plt Count 149 L Neut % (Auto) 62.9 Lymph % (Auto) 19.0 L [place] % (Auto) 12.9 Eos % (Auto) 4.3 H Baso % (Auto) 0.9 Neut # (Auto) 3700 Lymph # (Auto) 1100 [place] # (Auto) 800 Eos # (Auto) 300 Baso # (Auto) 100 Blood Type A Positive Antibody Screen Positive Antibody Identification Anti-e Crossmatch See Detail ON LICENSE OF [facility] Medical History Alcohol dependence Angiodysplasia of colon Arterial insufficiency Benign neoplasm of ascending colon Benign neoplasm of cecum Diverticulosis GI bleed Hemorrhoids Melena Rectal bleed Rectal polyp Tobacco dependence Surgical History H/O colonoscopy H/O endoscopy History of back surgery History of knee replacement History of shoulder surgery Peripheral vascular angioplasty status with implants and grafts Family History Father CVA (cerebral vascular accident) Myocardial infarct Mother Diabetes mellitus Social History household members: spouse Smoking Status: Current every day smoker alcohol intake: current Discharge Plan Discharge Plan Patient Disposition: Home Provider Discharge Comment: Take pantoprazole daily on indefinite basis to reduce chance of ulcer re-bleeding. As we discussed, you should avoid alcohol and stop smoking. Do not take any blood thinners for 1 week then start back on only the clopidogrel. Discharge orders & Medications Prescriptions: New pantoprazole 40 mg tablet,delayed release (DR/EC) 40 mg PO DAILY Qty: 30 RF: 0 Continued atorvastatin 10 mg tablet 10 mg PO DAILY RF: 0 clopidogrel 75 mg tablet 75 mg PO DAILY RF: 0 metformin 500 mg tablet extended release 24 hr 500 mg PO DAILY RF: 0 milk thistle 140 mg Capsule 140 mg PO BID RF: 0 sennosides 15 mg Tablet 15 mg PO DAILY RF: 0 omega-3 fatty acids Capsule 1 cap PO DAILY RF: 0 Discontinued Aspirin Low Dose 81 mg 81 mg PO DAILY RF: 0 Follow up/Referrals: Venancio Devine MD [Primary Care Provider] - Diet/Activity/Treatments Diet: Regular Visit Report/Discharge Packet Instructions: DI for Gastroesophageal Reflux Disease (GERD), DI for Gastritis, DI for Gastric Ulcer, DI for Hiatal Hernia, Pantoprazole, DI for Stomach Polyps Discharge Data Primary Care Provider: Venancio Devine Attending Provider: Raúl Lacey VTE Deep Vein Thrombosis/Pulmonary Embolism Present on Admission: No
== END 2020-10-30 11:56 | disposition home or self-care (01) ==
LOC: ED 12:12 → AC 12:14
PROVIDERS: Surgery; Admitting Provider Internal Medicine; Emergency Provider Nurse Practitioner; PCP Family Medicine; Referring Provider Nurse Practitioner; Visit Provider Internal Medicine
PROC: 0DJ08ZZ Inspection of Upper Intestinal Tract, Via Natural or Artificial Opening Endoscopic (ICD-10-PCS; CPT 43235; principal; 2020-10-29 16:15)
DX: D62 Acute posthemorrhagic anemia (principal); K92.1 Melena; K25.9 Gastric ulcer, unspecified as acute or chronic, without hemorrhage or perforation; K44.9 Diaphragmatic hernia without obstruction or gangrene; E11.9 Type 2 diabetes mellitus without complications; F10.20 Alcohol dependence, uncomplicated; I73.9 Peripheral vascular disease, unspecified; Z79.01 Long term (current) use of anticoagulants; F17.210 Nicotine dependence, cigarettes, uncomplicated; Z20.822 Contact with and (suspected) exposure to COVID-19; R00.0 Tachycardia, unspecified
CPT/HCPCS: 43239; 36415; 36430; 80053; 81003; 82962; 85025; 85610; 85730; 86850; 86870; 86900; 86901; 86902; 87635; 93005; 93010; 96361; 96374; 99283; 99284; C9803; G0378; P9016; C9113; J2250; J3010

== ENCOUNTER 2021-04-25 19:12 | Emergency (ER) | payer MEDICARE, SELFPAY ==
[2020-10-29 13:11] VITALS: BMI 24.5
[2021-04-25 19:15] VITALS: BP 184/99; PULSE 82; RESP 18; TEMP 36.8; O2SAT 96; BMI 25.8
[2021-04-25 19:52] LABS: Add Manual Diff / Slide Review NO; Basophils Absolute Auto 100 /uL (0-100); Basophils Percent Auto 0.7 % (0-2); Eosinophils Absolute Auto 0 /uL (0-450); Eosinophils Percent Auto 0.5 % (2-4); Hemoglobin 12.7 g/dL (13.5-17.5); Lymphocytes Absolute Auto 1100 /uL (1100-4500); Lymphocytes Percent Auto 10.7 % (25-40); Mean Corpuscular HGB Conc 33.4 % (30-36); Mean Corpuscular Hemoglobin 27.7 PG (26-34); Monocytes Absolute Auto 1100 /uL (0-900); Monocytes Percent Auto 10.5 % (3-14); Neutrophils Absolute Auto 7800 /uL (1500-7000); Neutrophils Percent Auto 77.6 % (50-75); Platelet Count 147 X10^3/uL (150-400); Red Blood Cell Count 4.57 X10^6/uL (4.5-5.9); Red Cell Distribution Width 24.7 % (11.6-14.8); White Blood Cell Count 10.1 X10^3/uL (4.5-11.0)
[2021-04-25 20:05] LABS: Alanine Aminotransferase 28 IU/L (<50); Albumin 4.6 g/dL (3.5-5.0); Albumin Globulin Ratio 1.3 (1.0-2.8); Alkaline Phosphatase 67 U/L (38-126); Aspartate Aminotransferase 43 IU/L (17-59); BUN Creatinine Ratio 15.3 (6-22); Blood Urea Nitrogen 23 mg/dL (9-20); Calcium 9.2 mg/dL (8.4-10.2); Carbon Dioxide 23 mmol/L (22-32); Chloride 97 mmol/L (98-107); Globulin 3.6 g/dL (1.7-4.1); Glucose 136 mg/dL (80-110); HEMOLYSIS < 15 (0-50); Lipase 66 U/L (23-300); Potassium 4.4 mmol/L (3.4-5.1); Sodium 131 mmol/L (137-145); Total Protein 8.2 g/dL (6.3-8.2)
--- NOTE | 2021-04-25 20:25 | ED_ITS ---
HPI - General Adult General Chief complaint: Abdominal Pain Stated complaint: KIDNEY PAIN LOWER LEFT SIDE PAIN TOWARDS BACK Time Seen by Provider: 04/25/21 20:12 Source: patient Mode of arrival: Ambulatory Limitations: no limitations History of Present Illness HPI narrative: Patient is a 71-year-old male who is here for evaluation of a couple days of left-sided flank pain and abdominal discomfort and also abdominal bloating. No nausea vomiting. No fevers. No urinary symptoms. He states that the symptoms have been off and on for the past couple days. He does describe left-sided back pain. He did take a couple pain pills that he had left over from a dental procedure at the end of last year over the past 24 hours however he states this did not help his symptoms all that much. Related Data Home Medications Medication Instructions Recorded Confirmed atorvastatin 10 mg tablet 10 mg PO DAILY 06/21/20 10/29/20 clopidogrel 75 mg tablet 75 mg PO DAILY 06/21/20 10/29/20 metformin 500 mg tablet,extended 500 mg PO DAILY 06/21/20 10/29/20 release 24 hr milk thistle 140 mg capsule 140 mg PO BID 10/29/20 10/29/20 omega-3 fatty acids 1 cap PO DAILY 10/29/20 10/30/20 sennosides 15 mg tablet 15 mg PO DAILY 10/29/20 10/29/20 Previous Rx's Medication Instructions Recorded pantoprazole 40 mg tablet,delayed 40 mg PO DAILY #30 tab 10/30/20 release hydrocodone 5 mg-acetaminophen 325 1 tab PO Q4-6H PRN #7 tab 04/25/21 mg tablet ondansetron 4 mg disintegrating 4 mg PO Q6H PRN #7 tab 04/25/21 tablet Allergies Allergy/AdvReac Type Severity Reaction Status Date / Time No Known Drug Allergies Allergy Verified 04/25/21 19:15 Review of Systems Constitutional Constitutional: Denies fever(s) and Denies headache(s) ENT Ears, Nose, Mouth, and Throat: Denies headache(s) Cardiovascular Cardiovascular: Denies chest pain and Denies dyspnea Respiratory Respiratory: Denies dyspnea Gastrointestinal Gastrointestinal: Denies belching, Reports bloating, Reports constipation and Denies vomiting Genitourinary Genitourinary: Denies hematuria, Denies dysuria, Reports flank pain and Denies testicular mass Musculoskeletal Musculoskeletal: Reports system reviewed and no additional complaints, except as documented Integumentary/Breasts Skin/Breast: Denies rash Neurologic Neurologic: Denies headache(s) Psychiatric Psychiatric: Reports system reviewed and no additional complaints, except as documented Hematologic/Lymphatic On Anticoagulants: No Allergic/Immunologic Allergic/Immunologic: Reports system reviewed and no additional complaints, except as documented Patient History Medical History Alcohol dependence Angiodysplasia of colon Arterial insufficiency Benign neoplasm of ascending colon Benign neoplasm of cecum Diverticulosis GI bleed Hemorrhoids Melena Rectal bleed Rectal polyp Tobacco dependence Surgical History H/O colonoscopy H/O endoscopy History of back surgery History of knee replacement History of shoulder surgery Peripheral vascular angioplasty status with implants and grafts Family History Father CVA (cerebral vascular accident) Myocardial infarct Mother Diabetes mellitus Social History household members: spouse Smoking Status: Current every day smoker alcohol intake: current Smoking Status: Current every day smoker tobacco type: cigarettes alcohol intake frequency: 3 or more drinks per day Substance Use Type: does not use Exam Initial Vital Signs Initial Vital Signs: Vital Signs Temperature 98.3 F 04/25/21 19:15 Pulse Rate 82 04/25/21 19:15 Respiratory Rate 18 04/25/21 19:15 Blood Pressure 184/99 H 04/25/21 19:15 Pulse Oximetry 96 04/25/21 19:15 Const General: cooperative and comfortable HENMT Head: normal to inspection and normocephalic Resp Auscultation: clear to auscultation bilaterally Cardio Rate: regular rate GI Inspection: normal to inspection Palpation: soft, No firm, No guarding and tender (Left-sided ab) Back/Spine/Pelvis Back: No CVA tenderness Skin General: no rashes or lesions noted Neuro General: patient alert, patient awake and patient oriented x3 Extrem General: normal to inspection and capillary refill normal Psych Appearance: grossly normal and well kempt Course Orders Ordered: ED Orders 04/25/21 19:35 Complete Blood Count AUTO DIFF Stat Comprehensive Metabolic Panel Stat Lipase Stat 04/25/21 20:26 CT abdomen pelvis w con Stat Discontinued Medications Hydrocodone Bitart/Acetaminophen (Hydrocodone/Acet 5/325 Prepack) 1 bottle MISC SEEINSTR ONE Stop: 04/25/21 21:45 Last Admin: 04/25/21 22:02 Dose: 1 bottle Documented by: DEBORAH Sodium Chloride (Normal Saline 0.9%) 1,000 mls @ 1,000 mls/hr IV BOLUS ONE Stop: 04/25/21 21:24 Last Infusion: 04/25/21 22:02 Dose: 0 mls/hr Documented by: Admin: 04/25/21 20:40 Dose: 1,000 mls/hr Documented by: DEBORAH Ketorolac Tromethamine (Ketorolac 30 Mg/Ml Vial) 30 mg IV NOW ONE Stop: 04/25/21 20:55 Last Admin: 04/25/21 20:58 Dose: 30 mg Documented by: DEBORAH Ondansetron HCl (Ondansetron 4 Mg Odt Prepack) 1 bottle MISC SEEINSTR ONE Stop: 04/25/21 21:45 Last Admin: 04/25/21 22:02 Dose: 1 bottle Documented by: DEBORAH Vital Signs Vital signs: Vital Signs - 8 hr 04/25/21 19:15 04/25/21 22:10 Temperature 98.3 F Pulse Rate 82 67 Respiratory Rate 18 16 Blood Pressure 184/99 H 163/94 H Pulse Oximetry 96 98 Medical Decision Making Lab Data Lab results reviewed: Yes I reviewed the patient's lab results. Result diagrams: 04/25/21 19:35 04/25/21 19:35 Labs: Lab Results 04/25/21 04/25/21 Range/Units 19:35 19:35 WBC 10.1 (4.5-11.0) X10^3/uL RBC 4.57 (4.5-5.9) X10^6/uL Hgb 12.7 L (13.5-17.5) g/dL Hct 38.0 L (41-53) % MCV 83.0 (80-100) fL MCH 27.7 (26-34) PG MCHC 33.4 (30-36) % RDW 24.7 H (11.6-14.8) % Plt Count 147 L (150-400) X10^3/uL Neut % (Auto) 77.6 H (50-75) % Lymph % (Auto) 10.7 L (25-40) % [place] % (Auto) 10.5 (3-14) % Eos % (Auto) 0.5 L (2-4) % Baso % (Auto) 0.7 (0-2) % Neut # (Auto) 7800 H (9997-7080) /uL Lymph # (Auto) 1100 (0740-7021) /uL [place] # (Auto) 1100 H (0-900) /uL Eos # (Auto) 0 (0-450) /uL Baso # (Auto) 100 (0-100) /uL RBC Morphology See below Anisocytosis 2+ H Sodium 131 L (137-145) mmol/L Potassium 4.4 (3.4-5.1) mmol/L Chloride 97 L (98-107) mmol/L Carbon Dioxide 23 (22-32) mmol/L BUN 23 H (9-20) mg/dL Creatinine 1.50 H (0.66-1.25) mg/dL Estimated GFR 46.0 L (>60) mL/min BUN/Creatinine Ratio 15.3 (6-22) Glucose 136 H (80-110) mg/dL Calcium 9.2 (8.4-10.2) mg/dL Total Bilirubin 1.0 (0.2-1.3) mg/dL AST 43 (17-59) IU/L ALT 28 (<50) IU/L Alkaline Phosphatase 67 (38-126) U/L Total Protein 8.2 (6.3-8.2) g/dL Albumin 4.6 (3.5-5.0) g/dL Globulin 3.6 (1.7-4.1) g/dL Albumin/Globulin Ratio 1.3 (1.0-2.8) Lipase 66 (23-300) U/L Urine Dip Bedside Urine Glucose Negative Bedside Urine Bilirubin - Negative Bedside Urine Ketone - Negative Urine Specific [place] 1.015 Bedside Urine Occult Blood - Negative Bedside Urine pH 6 Bedside Urine Protein - Negative Bedside Urine Urobilinogen - Negative Bedside Urine Nitrite - Negative Bedside Urine Leukocytes - Negative Esterase Point of care testing: Urine Dip Bedside Urine Glucose Negative Bedside Urine Bilirubin - Negative Bedside Urine Ketone - Negative Urine Specific [place] 1.015 Bedside Urine Occult Blood - Negative Bedside Urine pH 6 Bedside Urine Protein - Negative Bedside Urine Urobilinogen - Negative Bedside Urine Nitrite - Negative Bedside Urine Leukocytes - Negative Esterase Imaging Data CT scan - abdomen/pelvis: Radiologist's Impression: [address] [id number] Scan ReportSigned Patient: Venancio Osullivan CMR#: [id number]: 9Acct:[id number]/Sex: 71 / MDate of Service: 04/25/21Loc: EDAccession Number: [id number] Procedure: CT abdomen pelvis w con Ordering Provider: Regino Miller D.O. PROCEDURE: CT ABDOMEN PELVIS W CON INDICATIONS: Left-sided abdominal pain TECHNIQUE: After the administration of intravenous contrast, axial sections acquired from the lung bases to the pubic symphysis. Coronal and sagittal reformats were performed. For radiation dose reduction, the following was used: automated exposure control, adjustment of mA and/or kV according to patient size. COMPARISON: None. FINDINGS: Image quality: Excellent. Lung bases: Unremarkable. Heart: No significant findings. ABDOMEN: Liver: Liver demonstrates nodular contour consistent with cirrhosis. There is a 1.3 cm low-density nodule in posterior segment 8, which probably a cyst. A couple of 5 mm indeterminate nodules are seen segment 5. Gallbladder: Unremarkable. Biliary ducts: Unremarkable. Pancreas: Unremarkable. Spleen: Unremarkable. Adrenal Glands: Unremarkable. Kidneys and Ureters: There are bilateral renal calculi. There is a 4 mm stone in the proximal left ureter causing mild left hydronephrosis no right ureteral stones or right hydronephrosis. A small amount of left perinephric fluid collection is present. Stomach and Bowel: Stomach, small bowel loops, and colon are normal in caliber. There are numerous sigmoid diverticula. No acute diverticulitis. Peritoneum: No abnormal intraperitoneal fluid. No free air. Ventral Wall: No hernias. Abdominal Nodes: No retroperitoneal or mesenteric adenopathy by size criteria. Vessels: Aorta and inferior vena cava are normal in size. Severe atherosclerotic calcifications of aorta and iliac arteries. Recannulized umbilical vein. Retroaortic left renal vein. PELVIS: Pelvic Organs: Unremarkable. Bladder: Unremarkable. Pelvic Nodes: No enlarged lymph nodes. Miscellaneous: Small fat containing left inguinal hernia. Bones: Osteopenia. Mild scoliosis. Severe degenerative changes in lumbar spine. IMPRESSION: 1. There is a 4 mm obstructive stone in the proximal left ureter causing mild left hydronephrosis. 2. Nephrolithiasis bilaterally. 3. Sigmoid diverticulosis. No diverticulitis. 4. Nodular contour of liver consistent with cirrhosis. Recannulized umbilical vein is consistent with portal hypertension. 5. A 1.3 cm low-density nodule in segment 8 is probably a cyst. Tiny indeterminate hypodensities in segment 5 are noted. 6. Severe atherosclerosis. Dictated by: Devante Betancur M.D. on 04/25/2021 at 21:18 Approved by: Devante Betancur M.D. on 04/25/2021 at 21:32 MDM Narrative Medical decision making narrative: Urine shows blood but no other signs of an infection. He does have a slight increase in his creatinine. The CT scan shows a proximal left-sided 4 mm ureteral stone which does explain the symptoms that he has been having. He is afebrile. Otherwise there is no other abnormal findings on the CT scan. Will send home with symptom treatment. He was given return precautions and follow-up instructions and also information for follow-up with Urology. He expressed understanding and agreement. Discharge Plan Departure Patient Disposition: Home Clinical Impression: Left ureteral stone Instructions: DI for Kidney Stones Activity Restrictions/Additional Instructions: The CT scan today does show a left-sided 4 mm stone. Be sure to increase your fluid intake. Take all of your medications as directed. Use the nausea and pain medication as needed. You can also contact the health human resources trainer at [phone]. This individual can help establish a primary doctor in the local area. Also recommend that you contact the urology group at the number provided below for follow-up. Return to the emergency department for any new or worsening symptoms. Prescriptions: New hydrocodone-acetaminophen 5-325 mg tablet 1 tab PO Q4-6H PRN (Reason: pain) Qty: 7 RF: 0 ondansetron 4 mg tablet,disintegrating 4 mg PO Q6H PRN (Reason: nausea and vomiting) Qty: 7 RF: 0 No Action atorvastatin 10 mg tablet 10 mg PO DAILY RF: 0 clopidogrel 75 mg tablet 75 mg PO DAILY RF: 0 metformin 500 mg tablet extended release 24 hr 500 mg PO DAILY RF: 0 milk thistle 140 mg Capsule 140 mg PO BID RF: 0 sennosides 15 mg Tablet 15 mg PO DAILY RF: 0 omega-3 fatty acids Capsule 1 cap PO DAILY RF: 0 pantoprazole 40 mg tablet,delayed release (DR/EC) 40 mg PO DAILY Qty: 30 RF: 0 Referrals: Carol Ann Yuan MD [Physician] - Venancio Devine MD [Primary Care Provider] -
[2021-04-25 20:40] LABS: Anisocytosis 2+
[2021-04-25] MEDS: SODIUM CHLORIDE 0.9% 1,000 ML 1000 ML IV (20:40)
[2021-04-25] MEDS: KETOROLAC 30 MG/ML VIAL IV (20:58)
[2021-04-25] MEDS: HYDROCODONE/ACET 5/325 PREPACK 1 BOTTLE MISC (22:02)
[2021-04-25] MEDS: ONDANSETRON 4 MG ODT PREPACK 1 BOTTLE MISC (22:02)
[2021-04-25 22:10] VITALS: BP 163/94; PULSE 67; RESP 16; O2SAT 98
== END 2021-04-25 22:10 | disposition home or self-care (01) ==
PROVIDERS: Emergency Provider Emergency Medicine; PCP Family Medicine
DX: N20.1 Calculus of ureter (principal); M54.9 Dorsalgia, unspecified; K59.00 Constipation, unspecified; R79.89 Other specified abnormal findings of blood chemistry
CPT/HCPCS: 36415; 74177; 80053; 81003; 83690; 85025; 96361; 96374; 99284; J1885; Q9967

== ENCOUNTER → 2021-07-02 13:08 | Outpatient (CLI) | payer MEDICARE, SELFPAY ==
[2020-10-29 13:11] VITALS: BMI 24.5
[2021-07-02 20:29] LABS: BUN Creatinine Ratio 16.9 (6-22); Blood Urea Nitrogen 13 mg/dL (9-20); Calcium 9.1 mg/dL (8.4-10.2); Carbon Dioxide 24 mmol/L (22-32); Chloride 104 mmol/L (98-107); Estimated Glomerular Filt Rate > 60.0 mL/min (>60); Glucose 134 mg/dL (80-110); HEMOLYSIS < 15 (0-50); Potassium 4.3 mmol/L (3.4-5.1); Sodium 139 mmol/L (137-145)
== END ==
PROVIDERS: PCP Family Medicine; Visit Provider Internal Medicine Cardiovascular Disease
DX: E87.5 Hyperkalemia (principal)
CPT/HCPCS: 80048

== ENCOUNTER → 2022-06-08 09:44 | Outpatient (CLI) | payer MEDICARE, SELFPAY ==
[2020-10-29 13:11] VITALS: BMI 24.5
[2022-06-08 19:24] LABS: Add Manual Diff / Slide Review NO; Basophils Absolute Auto 0 /uL (0-100); Basophils Percent Auto 0.7 % (0-2); Eosinophils Absolute Auto 200 /uL (0-450); Eosinophils Percent Auto 2.8 % (2-4); Hematocrit 29.7 % (41-53); Hemoglobin 9.6 g/dL (13.5-17.5); Lymphocytes Absolute Auto 600 /uL (1100-4500); Lymphocytes Percent Auto 11.1 % (25-40); Mean Corpuscular HGB Conc 32.3 % (30-36); Mean Corpuscular Hemoglobin 25.5 PG (26-34); Mean Corpuscular Volume 78.7 fL (80-100); Monocytes Absolute Auto 800 /uL (0-900); Monocytes Percent Auto 14.1 % (3-14); Neutrophils Absolute Auto 3800 /uL (1500-7000); Neutrophils Percent Auto 71.3 % (50-75); Platelet Count 118 X10^3/uL (150-400); Red Blood Cell Count 3.77 X10^6/uL (4.5-5.9); Red Cell Distribution Width 19.1 % (11.6-14.8); White Blood Cell Count 5.3 X10^3/uL (4.5-11.0)
[2022-06-08 19:42] LABS: Alanine Aminotransferase 39 IU/L (<50); Albumin 4.4 g/dL (3.5-5.0); Albumin Globulin Ratio 1.3 (1.0-2.8); Alkaline Phosphatase 78 U/L (38-126); Aspartate Aminotransferase 90 IU/L (17-59); BUN Creatinine Ratio 16.7 (6-22); Blood Urea Nitrogen 17 mg/dL (9-20); Calcium 8.7 mg/dL (8.4-10.2); Carbon Dioxide 25 mmol/L (22-32); Chloride 101 mmol/L (98-107); Cholesterol 105 mg/dL (140-199); Estimated Glomerular Filt Rate > 60 mL/min (>60); Globulin 3.5 g/dL (1.7-4.1); Glucose 160 mg/dL (80-110); HDL Cholesterol 39 mg/dL (40-60); HEMOLYSIS < 15 (0-50); LDL Cholesterol Calculated 54 mg/dL (<100); Potassium 4.1 mmol/L (3.4-5.1); Sodium 137 mmol/L (137-145); Total Protein 7.9 g/dL (6.3-8.2); Triglycerides 59 mg/dL (35-150)
[2022-06-08 19:48] LABS: Hemoglobin A1C% w Est Avg Glu 6.5 % (4.0-6.0)
[2022-06-08 20:01] LABS: Creatinine Urine Random 232.6 mg/dL
[2022-06-08 20:03] LABS: Vitamin D 25 Hydroxy (D3) 59.3 ng/mL (30.0-100.0)
[2022-06-08 20:05] LABS: Microalbumi Creatinin Ratio Ur 41.2 ug/mg CR (<30); Microalbumin Urine Random 9.6 mg/dL (0-1.6)
[2022-06-08 20:26] LABS: Vitamin B12 > 1000 pg/mL (239-931)
[2022-06-08 20:36] LABS: Hep C Virus Ab w/Reflex Quant NEGATIVE s/c (NEGATIVE)
== END ==
PROVIDERS: PCP Family Medicine; Visit Provider Family Medicine
DX: D64.9 Anemia, unspecified (principal); E11.9 Type 2 diabetes mellitus without complications; K70.30 Alcoholic cirrhosis of liver without ascites; E78.2 Mixed hyperlipidemia; F10.20 Alcohol dependence, uncomplicated; F17.200 Nicotine dependence, unspecified, uncomplicated; I25.10 Atherosclerotic heart disease of native coronary artery without angina pectoris; K76.6 Portal hypertension; Z87.19 Personal history of other diseases of the digestive system; Z95.820 Peripheral vascular angioplasty status with implants and grafts; Z11.59 Encounter for screening for other viral diseases
CPT/HCPCS: 80053; 80061; 82043; 82306; 82570; 82607; 83036; 85025; 86803

== ENCOUNTER → 2022-06-23 08:21 | Outpatient (CLI) | payer MEDICARE, SELFPAY ==
[2022-06-19 10:56] VITALS: BMI 24.5
[2022-06-25 10:36] LABS: Fecal Immunochemical Test Positive (Negative)
== END ==
PROVIDERS: PCP Family Medicine; Visit Provider Family Medicine
DX: D64.9 Anemia, unspecified (principal); K70.30 Alcoholic cirrhosis of liver without ascites; K76.6 Portal hypertension; Z87.11 Personal history of peptic ulcer disease; Z87.19 Personal history of other diseases of the digestive system
CPT/HCPCS: 82274

== ENCOUNTER → 2022-06-24 14:29 | Outpatient (CLI) | payer MEDICARE, SELFPAY ==
[2022-06-19 10:56] VITALS: BMI 24.5
[2022-06-24 19:36] LABS: INR 1.2 (0.9-1.3); Prothrombin Time 14.1 SECONDS (10.1-12.7)
[2022-06-24 19:39] LABS: Add Manual Diff / Slide Review NO; Basophils Absolute Auto 100 /uL (0-100); Basophils Percent Auto 1.2 % (0-2); Eosinophils Absolute Auto 200 /uL (0-450); Hematocrit 28.4 % (41-53); Hemoglobin 9.2 g/dL (13.5-17.5); Lymphocytes Absolute Auto 900 /uL (1100-4500); Lymphocytes Percent Auto 14.8 % (25-40); Mean Corpuscular HGB Conc 32.2 % (30-36); Mean Corpuscular Volume 80.8 fL (80-100); Monocytes Absolute Auto 800 /uL (0-900); Monocytes Percent Auto 13.4 % (3-14); Neutrophils Absolute Auto 4000 /uL (1500-7000); Neutrophils Percent Auto 66.6 % (50-75); Platelet Count 154 X10^3/uL (150-400); Red Blood Cell Count 3.52 X10^6/uL (4.5-5.9)
== END ==
PROVIDERS: PCP Family Medicine; Visit Provider Family Medicine
DX: D64.9 Anemia, unspecified (principal); K70.30 Alcoholic cirrhosis of liver without ascites; K76.6 Portal hypertension; Z87.11 Personal history of peptic ulcer disease; Z87.19 Personal history of other diseases of the digestive system
CPT/HCPCS: 85025; 85610

== ENCOUNTER → 2022-07-20 13:11 | Outpatient (CLI) | payer MEDICARE, SELFPAY ==
[2022-06-19 10:56] VITALS: BMI 24.5
[2022-07-20 20:17] LABS: Add Manual Diff / Slide Review NO; Basophils Absolute Auto 100 /uL (0-100); Eosinophils Absolute Auto 300 /uL (0-450); Eosinophils Percent Auto 4.7 % (2-4); Hematocrit 35.6 % (41-53); Hemoglobin 11.9 g/dL (13.5-17.5); Lymphocytes Absolute Auto 1000 /uL (1100-4500); Lymphocytes Percent Auto 15.5 % (25-40); Mean Corpuscular HGB Conc 33.4 % (30-36); Mean Corpuscular Hemoglobin 28.1 PG (26-34); Mean Corpuscular Volume 84.2 fL (80-100); Monocytes Absolute Auto 700 /uL (0-900); Neutrophils Absolute Auto 4300 /uL (1500-7000); Neutrophils Percent Auto 67.8 % (50-75); Platelet Count 150 X10^3/uL (150-400); Red Blood Cell Count 4.22 X10^6/uL (4.5-5.9); Red Cell Distribution Width 24.3 % (11.6-14.8); White Blood Cell Count 6.4 X10^3/uL (4.5-11.0)
[2022-07-20 20:50] LABS: Anisocytosis 2+; Poikilocytosis 1+
== END ==
PROVIDERS: PCP Family Medicine; Visit Provider Family Medicine
DX: D64.9 Anemia, unspecified (principal); R19.5 Other fecal abnormalities
CPT/HCPCS: 85025

== ENCOUNTER → 2022-07-21 16:04 | Outpatient (CLI) | payer MEDICARE, SELFPAY ==
[2022-06-19 10:56] VITALS: BMI 24.5
[2022-07-24 13:46] LABS: Fecal Immunochemical Test Negative (Negative)
== END ==
PROVIDERS: PCP Family Medicine; Visit Provider Family Medicine
DX: D64.9 Anemia, unspecified (principal); R19.5 Other fecal abnormalities
CPT/HCPCS: 82274

== ENCOUNTER → 2022-09-17 13:11 | Outpatient (CLI) | payer MEDICARE, SELFPAY ==
[2022-06-19 10:56] VITALS: BMI 24.5
[2022-09-17 19:00] LABS: Alanine Aminotransferase 22 IU/L (<50); Albumin 4.2 g/dL (3.5-5.0); Albumin Globulin Ratio 1.4 (1.0-2.8); Alkaline Phosphatase 57 U/L (38-126); Aspartate Aminotransferase 28 IU/L (17-59); BUN Creatinine Ratio 21.4 (6-22); Bilirubin Total 0.6 mg/dL (0.2-1.3); Blood Urea Nitrogen 18 mg/dL (9-20); Calcium 8.9 mg/dL (8.4-10.2); Carbon Dioxide 21 mmol/L (22-32); Chloride 105 mmol/L (98-107); Estimated Glomerular Filt Rate > 60 mL/min (>60); Globulin 2.9 g/dL (1.7-4.1); Glucose 128 mg/dL (80-110); HEMOLYSIS < 15 (0-50); Potassium 4.4 mmol/L (3.4-5.1); Sodium 138 mmol/L (137-145); Total Protein 7.1 g/dL (6.3-8.2)
[2022-09-17 19:07] LABS: Add Manual Diff / Slide Review NO; Basophils Absolute Auto 0 /uL (0-100); Basophils Percent Auto 0.8 % (0-2); Eosinophils Absolute Auto 300 /uL (0-450); Eosinophils Percent Auto 5.3 % (2-4); Hematocrit 36.4 % (41-53); Hemoglobin 12.5 g/dL (13.5-17.5); Lymphocytes Absolute Auto 1100 /uL (1100-4500); Lymphocytes Percent Auto 18.9 % (25-40); Mean Corpuscular HGB Conc 34.2 % (30-36); Mean Corpuscular Hemoglobin 30.4 PG (26-34); Mean Corpuscular Volume 88.6 fL (80-100); Monocytes Absolute Auto 600 /uL (0-900); Monocytes Percent Auto 10.6 % (3-14); Neutrophils Absolute Auto 3800 /uL (1500-7000); Neutrophils Percent Auto 64.4 % (50-75); Platelet Count 137 X10^3/uL (150-400); Red Blood Cell Count 4.11 X10^6/uL (4.5-5.9); Red Cell Distribution Width 17.8 % (11.6-14.8); White Blood Cell Count 5.8 X10^3/uL (4.5-11.0)
[2022-09-17 19:11] LABS: Hemoglobin A1C% w Est Avg Glu 6.7 % (4.0-6.0)
[2022-09-17 19:49] LABS: Microalbumi Creatinin Ratio Ur 12.4 ug/mg CR (<30); Microalbumin Urine Random 1.8 mg/dL (0-1.6)
== END ==
PROVIDERS: PCP Family Medicine; Visit Provider Family Medicine
DX: D64.9 Anemia, unspecified (principal); E11.9 Type 2 diabetes mellitus without complications; I25.10 Atherosclerotic heart disease of native coronary artery without angina pectoris; I73.9 Peripheral vascular disease, unspecified; K70.30 Alcoholic cirrhosis of liver without ascites; Z72.0 Tobacco use; Z87.19 Personal history of other diseases of the digestive system
CPT/HCPCS: 80053; 82043; 82570; 83036; 85025

== ENCOUNTER → 2023-06-17 09:37 | Outpatient (CLI) | payer MEDICARE, SELFPAY ==
[2022-06-19 10:56] VITALS: BMI 24.5
[2023-06-17 19:51] LABS: Add Manual Diff / Slide Review NO; Alanine Aminotransferase 44 IU/L (<50); Albumin 4.3 g/dL (3.5-5.0); Albumin Globulin Ratio 1.3 (1.0-2.8); Alkaline Phosphatase 65 U/L (38-126); Aspartate Aminotransferase 73 IU/L (17-59); BUN Creatinine Ratio 18.2 (6-22); Basophils Absolute Auto 0 /uL (0-100); Basophils Percent Auto 0.6 % (0-2); Blood Urea Nitrogen 18 mg/dL (9-20); Carbon Dioxide 23 mmol/L (22-32); Chloride 104 mmol/L (98-107); Cholesterol 130 mg/dL (140-199); Eosinophils Absolute Auto 100 /uL (0-450); Eosinophils Percent Auto 2.3 % (2-4); Estimated Glomerular Filt Rate > 60 mL/min (>60); Globulin 3.2 g/dL (1.7-4.1); Glucose 209 mg/dL (80-110); HDL Cholesterol 56 mg/dL (40-60); HEMOLYSIS < 15 (0-50); Hematocrit 32.7 % (41-53); LDL Cholesterol Calculated 63 mg/dL (<100); Lymphocytes Absolute Auto 700 /uL (1100-4500); Lymphocytes Percent Auto 11.1 % (25-40); Mean Corpuscular HGB Conc 33.5 % (30-36); Mean Corpuscular Hemoglobin 30.3 PG (26-34); Mean Corpuscular Volume 90.4 fL (80-100); Monocytes Absolute Auto 700 /uL (0-900); Monocytes Percent Auto 12.2 % (3-14); Neutrophils Absolute Auto 4500 /uL (1500-7000); Neutrophils Percent Auto 73.8 % (50-75); Platelet Count 123 X10^3/uL (150-400); Potassium 4.6 mmol/L (3.4-5.1); Red Blood Cell Count 3.61 X10^6/uL (4.5-5.9); Red Cell Distribution Width 16.2 % (11.6-14.8); Sodium 138 mmol/L (137-145); Total Protein 7.5 g/dL (6.3-8.2); Triglycerides 57 mg/dL (35-150); White Blood Cell Count 6.1 X10^3/uL (4.5-11.0)
[2023-06-17 20:05] LABS: Hemoglobin A1C% w Est Avg Glu 5.8 % (4.0-6.0)
[2023-06-17 20:28] LABS: Microalbumin Urine Random 10.9 mg/dL (0-1.6)
[2023-06-17 20:39] LABS: Vitamin B12 880 pg/mL (239-931)
== END ==
PROVIDERS: PCP Family Medicine; Visit Provider Family Medicine
DX: D64.9 Anemia, unspecified (principal); E11.9 Type 2 diabetes mellitus without complications; E11.29 Type 2 diabetes mellitus with other diabetic kidney complication; E78.2 Mixed hyperlipidemia; F10.90 Alcohol use, unspecified, uncomplicated; I25.10 Atherosclerotic heart disease of native coronary artery without angina pectoris; K76.6 Portal hypertension; K70.30 Alcoholic cirrhosis of liver without ascites; Z95.820 Peripheral vascular angioplasty status with implants and grafts; R80.9 Proteinuria, unspecified
CPT/HCPCS: 80053; 80061; 82043; 82570; 82607; 83036; 85025

== ENCOUNTER → 2023-08-26 08:44 | Outpatient (CLI) | payer MEDICARE, SELFPAY ==
[2023-06-24 11:13] VITALS: BMI 24.5
[2023-08-26 20:01] LABS: HEMOLYSIS < 15 (0-50); Iron 30 ug/dL (49-181)
[2023-08-26 20:05] LABS: Alanine Aminotransferase 36 IU/L (<50); Albumin 3.7 g/dL (3.5-5.0); Albumin Globulin Ratio 1.1 (1.0-2.8); Alkaline Phosphatase 59 U/L (38-126); Aspartate Aminotransferase 47 IU/L (17-59); BUN Creatinine Ratio 15.9 (6-22); Bilirubin Total 1.1 mg/dL (0.2-1.3); Blood Urea Nitrogen 18 mg/dL (9-20); Calcium 9.2 mg/dL (8.4-10.2); Carbon Dioxide 23 mmol/L (22-32); Chloride 102 mmol/L (98-107); Estimated Glomerular Filt Rate > 60 mL/min (>60); Globulin 3.4 g/dL (1.7-4.1); Glucose 167 mg/dL (80-110); HEMOLYSIS < 15 (0-50); Sodium 136 mmol/L (137-145); Total Protein 7.1 g/dL (6.3-8.2)
[2023-08-26 20:07] LABS: Potassium 5.4 mmol/L (3.4-5.1)
[2023-08-26 20:09] LABS: Reticulocyte Count, Percent 3.5 % (0.9-2.6)
[2023-08-26 20:10] LABS: Add Manual Diff / Slide Review NO; Basophils Absolute Auto 100 /uL (0-100); Basophils Percent Auto 0.9 % (0-2); Eosinophils Absolute Auto 200 /uL (0-450); Eosinophils Percent Auto 3.4 % (2-4); Hemoglobin 9.9 g/dL (13.5-17.5); Lymphocytes Absolute Auto 800 /uL (1100-4500); Lymphocytes Percent Auto 11.7 % (25-40); Mean Corpuscular Hemoglobin 27.4 PG (26-34); Mean Corpuscular Volume 83.2 fL (80-100); Monocytes Absolute Auto 600 /uL (0-900); Monocytes Percent Auto 9.2 % (3-14); Neutrophils Absolute Auto 5200 /uL (1500-7000); Neutrophils Percent Auto 74.8 % (50-75); Platelet Count 251 X10^3/uL (150-400); Red Cell Distribution Width 17.9 % (11.6-14.8)
[2023-08-26 20:16] LABS: Percent Iron Saturation 7 % (20-50); Total Iron Binding Capacity 412 ug/dL (261-462); Transferrin 313 mg/dL (206-381)
== END ==
PROVIDERS: PCP Family Medicine; Visit Provider Family Medicine
DX: E11.9 Type 2 diabetes mellitus without complications (principal); D61.818 Other pancytopenia; I10 Essential (primary) hypertension; F10.90 Alcohol use, unspecified, uncomplicated; Z72.0 Tobacco use; E11.29 Type 2 diabetes mellitus with other diabetic kidney complication; R80.9 Proteinuria, unspecified; K76.6 Portal hypertension; K70.30 Alcoholic cirrhosis of liver without ascites
CPT/HCPCS: 80053; 83540; 83550; 85025; 85045

== ENCOUNTER → 2023-09-20 10:03 | Outpatient (CLI) | payer MEDICARE, SELFPAY ==
[2023-06-24 11:13] VITALS: BMI 24.5
[2023-09-20 19:16] LABS: BUN Creatinine Ratio 19.4 (6-22); Blood Urea Nitrogen 21 mg/dL (9-20); Calcium 8.9 mg/dL (8.4-10.2); Carbon Dioxide 17 mmol/L (22-32); Chloride 106 mmol/L (98-107); Estimated Glomerular Filt Rate > 60 mL/min (>60); Glucose 168 mg/dL (80-110); HEMOLYSIS < 15 (0-50); Potassium 4.7 mmol/L (3.4-5.1); Sodium 136 mmol/L (137-145)
[2023-09-20 19:24] LABS: Cholesterol 120 mg/dL (140-199); HDL Cholesterol 45 mg/dL (40-60); LDL Cholesterol Calculated 57 mg/dL (<100); Triglycerides 90 mg/dL (35-150)
[2023-09-20 19:58] LABS: Creatinine Urine Random 153.6 mg/dL
[2023-09-20 20:05] LABS: Microalbumi Creatinin Ratio Ur 9.7 ug/mg CR (<30); Microalbumin Urine Random 1.5 mg/dL (0-1.6)
[2023-09-20 20:14] LABS: Vitamin B12 849 pg/mL (239-931)
== END ==
PROVIDERS: PCP Family Medicine; Visit Provider Internal Medicine Cardiovascular Disease
DX: E11.9 Type 2 diabetes mellitus without complications (principal); I21.4 Non-ST elevation (NSTEMI) myocardial infarction; D61.818 Other pancytopenia; I10 Essential (primary) hypertension; F10.90 Alcohol use, unspecified, uncomplicated; Z72.0 Tobacco use; E11.29 Type 2 diabetes mellitus with other diabetic kidney complication; R80.9 Proteinuria, unspecified; K76.6 Portal hypertension; K70.30 Alcoholic cirrhosis of liver without ascites; K92.2 Gastrointestinal hemorrhage, unspecified; E78.2 Mixed hyperlipidemia; I25.10 Atherosclerotic heart disease of native coronary artery without angina pectoris; Z95.820 Peripheral vascular angioplasty status with implants and grafts; I85.00 Esophageal varices without bleeding
CPT/HCPCS: 80048; 80061; 82043; 82570; 82607

== ENCOUNTER → 2023-11-01 14:14 | Outpatient (CLI) | payer MEDICARE, SELFPAY ==
[2023-06-24 11:13] VITALS: BMI 24.5
[2023-11-01 19:52] LABS: Influenza A - CEPHEID Flu A NEGATIVE (NEGATIVE); Influenza B - CEPHEID Flu B NEGATIVE (NEGATIVE)
== END ==
PROVIDERS: PCP Family Medicine; Visit Provider Physician Assistant
DX: R05.9 Cough, unspecified (principal)
CPT/HCPCS: 87502

== ENCOUNTER → 2023-11-02 15:39 | Outpatient (CLI) | payer MEDICARE, SELFPAY ==
[2023-06-24 11:13] VITALS: BMI 24.5
[2023-11-05 11:51] LABS: Fecal Immunochemical Test Negative (Negative)
== END ==
PROVIDERS: PCP Family Medicine; Visit Provider Family Medicine
DX: D61.818 Other pancytopenia (principal); I10 Essential (primary) hypertension; F10.90 Alcohol use, unspecified, uncomplicated; Z72.0 Tobacco use; E11.29 Type 2 diabetes mellitus with other diabetic kidney complication; R80.9 Proteinuria, unspecified; K76.6 Portal hypertension; E11.9 Type 2 diabetes mellitus without complications; K70.30 Alcoholic cirrhosis of liver without ascites
CPT/HCPCS: 82274

== ENCOUNTER → 2023-11-09 11:36 | Outpatient (CLI) | payer MEDICARE, SELFPAY ==
[2023-06-24 11:13] VITALS: BMI 24.5
[2023-11-09 20:01] LABS: Alanine Aminotransferase 41 IU/L (<50); Albumin Globulin Ratio 1.3 (1.0-2.8); Alkaline Phosphatase 58 U/L (38-126); Aspartate Aminotransferase 79 IU/L (17-59); BUN Creatinine Ratio 21.6 (6-22); Bilirubin Total 0.5 mg/dL (0.2-1.3); Blood Urea Nitrogen 27 mg/dL (9-20); Calcium 9.1 mg/dL (8.4-10.2); Carbon Dioxide 19 mmol/L (22-32); Chloride 108 mmol/L (98-107); Estimated Glomerular Filt Rate > 60 mL/min (>60); Globulin 3.2 g/dL (1.7-4.1); Glucose 126 mg/dL (80-110); HEMOLYSIS < 15 (0-50); Potassium 4.4 mmol/L (3.4-5.1); Sodium 139 mmol/L (137-145); Total Protein 7.2 g/dL (6.3-8.2)
[2023-11-09 20:03] LABS: Add Manual Diff / Slide Review NO; Basophils Absolute Auto 0 /uL (0-100); Basophils Percent Auto 0.7 % (0-2); Eosinophils Absolute Auto 200 /uL (0-450); Eosinophils Percent Auto 2.9 % (2-4); Hematocrit 28.5 % (41-53); Hemoglobin 9.7 g/dL (13.5-17.5); Lymphocytes Absolute Auto 800 /uL (1100-4500); Lymphocytes Percent Auto 14.5 % (25-40); Mean Corpuscular Hemoglobin 31.8 PG (26-34); Mean Corpuscular Volume 93.5 fL (80-100); Monocytes Absolute Auto 700 /uL (0-900); Monocytes Percent Auto 12.4 % (3-14); Neutrophils Absolute Auto 4000 /uL (1500-7000); Neutrophils Percent Auto 69.5 % (50-75); Platelet Count 178 X10^3/uL (150-400); Red Blood Cell Count 3.05 X10^6/uL (4.5-5.9); Red Cell Distribution Width 18.8 % (11.6-14.8); White Blood Cell Count 5.8 X10^3/uL (4.5-11.0)
[2023-11-09 20:05] LABS: HEMOLYSIS < 15 (0-50); Iron 31 ug/dL (49-181)
[2023-11-09 20:20] LABS: Percent Iron Saturation 8 % (20-50); Total Iron Binding Capacity 390 ug/dL (261-462); Transferrin 328 mg/dL (206-381)
[2023-11-09 20:36] LABS: Ferritin 17 ng/mL (18-464)
[2023-11-09 20:52] LABS: Vitamin B12 978 pg/mL (239-931)
== END ==
PROVIDERS: PCP Family Medicine; Visit Provider Anesthesiology
DX: D64.9 Anemia, unspecified (principal); K70.30 Alcoholic cirrhosis of liver without ascites; D61.818 Other pancytopenia; D62 Acute posthemorrhagic anemia; Z87.19 Personal history of other diseases of the digestive system
CPT/HCPCS: 80053; 82607; 82728; 83540; 83550; 85025

== ENCOUNTER → 2023-12-02 14:05 | Outpatient (CLI) | payer MEDICARE, SELFPAY ==
[2023-06-24 11:13] VITALS: BMI 24.5
[2023-12-02 19:34] LABS: Add Manual Diff / Slide Review NO; Basophils Absolute Auto 100 /uL (0-100); Basophils Percent Auto 1.3 % (0-2); Eosinophils Absolute Auto 300 /uL (0-450); Eosinophils Percent Auto 5.1 % (2-4); Lymphocytes Absolute Auto 1000 /uL (1100-4500); Mean Corpuscular HGB Conc 33.4 % (30-36); Mean Corpuscular Hemoglobin 31.8 PG (26-34); Mean Corpuscular Volume 95.1 fL (80-100); Monocytes Absolute Auto 600 /uL (0-900); Monocytes Percent Auto 10.4 % (3-14); Neutrophils Absolute Auto 4000 /uL (1500-7000); Neutrophils Percent Auto 66.2 % (50-75); Platelet Count 152 X10^3/uL (150-400); Red Blood Cell Count 2.84 X10^6/uL (4.5-5.9); Red Cell Distribution Width 18.4 % (11.6-14.8); White Blood Cell Count 6.1 X10^3/uL (4.5-11.0)
[2023-12-02 20:06] LABS: Alanine Aminotransferase 28 IU/L (<50); Albumin Globulin Ratio 1.3 (1.0-2.8); Alkaline Phosphatase 46 U/L (38-126); Aspartate Aminotransferase 76 IU/L (17-59); BUN Creatinine Ratio 19.4 (6-22); Bilirubin Total 1.2 mg/dL (0.2-1.3); Blood Urea Nitrogen 18 mg/dL (9-20); Calcium 8.9 mg/dL (8.4-10.2); Carbon Dioxide 21 mmol/L (22-32); Chloride 104 mmol/L (98-107); Cholesterol 125 mg/dL (140-199); Estimated Glomerular Filt Rate > 60 mL/min (>60); Globulin 3.1 g/dL (1.7-4.1); Glucose 150 mg/dL (80-110); HDL Cholesterol 42 mg/dL (40-60); HEMOLYSIS < 15 (0-50); LDL Cholesterol Calculated 58 mg/dL (<100); Potassium 4.5 mmol/L (3.4-5.1); Sodium 137 mmol/L (137-145); Total Protein 7.1 g/dL (6.3-8.2); Triglycerides 125 mg/dL (35-150)
[2023-12-02 20:14] LABS: HEMOLYSIS < 15 (0-50); Iron 244 ug/dL (49-181)
[2023-12-02 20:26] LABS: Percent Iron Saturation 62 % (20-50); Total Iron Binding Capacity 393 ug/dL (261-462); Transferrin 316 mg/dL (206-381)
[2023-12-02 20:44] LABS: Creatinine Urine Random 239.9 mg/dL
[2023-12-02 20:49] LABS: Microalbumi Creatinin Ratio Ur 25.4 ug/mg CR (<30); Microalbumin Urine Random 6.1 mg/dL (0-1.6)
== END ==
PROVIDERS: PCP Family Medicine; Visit Provider Family Medicine
DX: D64.9 Anemia, unspecified (principal); I10 Essential (primary) hypertension; E11.29 Type 2 diabetes mellitus with other diabetic kidney complication; F10.90 Alcohol use, unspecified, uncomplicated; E78.2 Mixed hyperlipidemia; Z72.0 Tobacco use; R80.9 Proteinuria, unspecified; I73.9 Peripheral vascular disease, unspecified; K76.6 Portal hypertension; Z87.19 Personal history of other diseases of the digestive system; I25.10 Atherosclerotic heart disease of native coronary artery without angina pectoris; K70.30 Alcoholic cirrhosis of liver without ascites; E11.9 Type 2 diabetes mellitus without complications
CPT/HCPCS: 80053; 80061; 82043; 82570; 83036; 83540; 83550; 85025

== ENCOUNTER → 2023-12-13 12:16 | Outpatient (CLI) | payer MEDICARE, SELFPAY ==
[2023-06-24 11:13] VITALS: BMI 24.5
[2023-12-15 06:17] LABS: Fecal Immunochemical Test Positive (Negative)
== END ==
PROVIDERS: PCP Family Medicine; Visit Provider Family Medicine
DX: D64.9 Anemia, unspecified (principal)
CPT/HCPCS: 82274

== ENCOUNTER → 2023-12-15 09:39 | Outpatient (CLI) | payer MEDICARE, SELFPAY ==
[2023-12-20 13:39] LABS: Fecal Immunochemical Test Negative (Negative)
[2024-05-29 12:46] VITALS: BMI 24.5
== END ==
LOC: LAB 06-12 09:39
PROVIDERS: PCP Family Medicine; Referring Provider Family Medicine; Visit Provider Family Medicine
DX: D64.9 Anemia, unspecified (principal)
CPT/HCPCS: 82274

== ENCOUNTER → 2024-02-07 12:06 | Outpatient (CLI) | payer MEDICARE, SELFPAY ==
[2023-06-24 11:13] VITALS: BMI 24.5
[2024-02-07 20:00] LABS: Hematocrit 30.3 % (41-53); Mean Corpuscular HGB Conc 32.9 % (30-36); Platelet Count 137 X10^3/uL (150-400); Red Blood Cell Count 3.45 X10^6/uL (4.5-5.9); Red Cell Distribution Width 16.8 % (11.6-14.8); White Blood Cell Count 5.2 X10^3/uL (4.5-11.0)
== END ==
PROVIDERS: PCP Family Medicine; Visit Provider Internal Medicine Interventional Cardiology
DX: D64.9 Anemia, unspecified (principal)
CPT/HCPCS: 85027

== ENCOUNTER → 2024-04-19 10:01 | Outpatient (CLI) | payer MEDICARE, SELFPAY ==
[2023-06-24 11:13] VITALS: BMI 24.5
[2024-04-19 19:37] LABS: Add Manual Diff / Slide Review NO; Basophils Absolute Auto 0 /uL (0-100); Basophils Percent Auto 0.9 % (0-2); Eosinophils Absolute Auto 100 /uL (0-450); Eosinophils Percent Auto 2.1 % (2-4); Hematocrit 28.2 % (41-53); Hemoglobin 9.2 g/dL (13.5-17.5); Lymphocytes Absolute Auto 400 /uL (1100-4500); Lymphocytes Percent Auto 8.4 % (25-40); Mean Corpuscular HGB Conc 32.7 % (30-36); Mean Corpuscular Volume 85.5 fL (80-100); Monocytes Absolute Auto 600 /uL (0-900); Neutrophils Absolute Auto 3900 /uL (1500-7000); Neutrophils Percent Auto 77.6 % (50-75); Platelet Count 111 X10^3/uL (150-400); Red Cell Distribution Width 18.8 % (11.6-14.8)
[2024-04-19 19:39] LABS: HEMOLYSIS < 15 (0-50); Iron 63 ug/dL (49-181)
[2024-04-19 19:43] LABS: Hemoglobin A1C% w Est Avg Glu 5.3 % (4.0-6.0)
[2024-04-19 19:44] LABS: Alanine Aminotransferase 23 IU/L (<50); Albumin 4.5 g/dL (3.5-5.0); Albumin Globulin Ratio 1.4 (1.0-2.8); Alkaline Phosphatase 56 U/L (38-126); Aspartate Aminotransferase 63 IU/L (17-59); BUN Creatinine Ratio 15.8 (6-22); Bilirubin Total 1.3 mg/dL (0.2-1.3); Blood Urea Nitrogen 21 mg/dL (9-20); Calcium 9.1 mg/dL (8.4-10.2); Carbon Dioxide 22 mmol/L (22-32); Chloride 105 mmol/L (98-107); Cholesterol 115 mg/dL (140-199); Estimated Glomerular Filt Rate 56 mL/min (>60); Globulin 3.2 g/dL (1.7-4.1); Glucose 139 mg/dL (80-110); HDL Cholesterol 56 mg/dL (40-60); HEMOLYSIS < 15 (0-50); LDL Cholesterol Calculated 43 mg/dL (<100); Potassium 4.6 mmol/L (3.4-5.1); Sodium 137 mmol/L (137-145); Total Protein 7.7 g/dL (6.3-8.2); Triglycerides 80 mg/dL (35-150)
[2024-04-19 19:55] LABS: Percent Iron Saturation 14 % (20-50); Total Iron Binding Capacity 455 ug/dL (261-462); Transferrin 371 mg/dL (206-381)
[2024-04-19 20:03] LABS: Creatinine Urine Random 119.56 mg/dL
[2024-04-19 20:07] LABS: Microalbumin Urine Random 12.9 mg/dL (0-1.6)
== END ==
PROVIDERS: PCP Family Medicine; Visit Provider Family Medicine
DX: D64.9 Anemia, unspecified (principal); E11.29 Type 2 diabetes mellitus with other diabetic kidney complication; I25.2 Old myocardial infarction; R91.1 Solitary pulmonary nodule; I10 Essential (primary) hypertension; E78.2 Mixed hyperlipidemia; R80.9 Proteinuria, unspecified; K76.6 Portal hypertension; I25.10 Atherosclerotic heart disease of native coronary artery without angina pectoris; E11.9 Type 2 diabetes mellitus without complications; Z95.818 Presence of other cardiac implants and grafts
CPT/HCPCS: 80053; 80061; 82043; 82570; 83036; 83540; 83550; 85025

== ENCOUNTER → 2024-04-25 12:27 | Outpatient (CLI) | payer MEDICARE, SELFPAY ==
[2023-06-24 11:13] VITALS: BMI 24.5
[2024-04-25 19:44] LABS: Add Manual Diff / Slide Review NO; Basophils Absolute Auto 0 /uL (0-100); Basophils Percent Auto 0.6 % (0-2); Eosinophils Absolute Auto 200 /uL (0-450); Eosinophils Percent Auto 2.4 % (2-4); Hematocrit 26.8 % (41-53); Hemoglobin 8.7 g/dL (13.5-17.5); Lymphocytes Absolute Auto 600 /uL (1100-4500); Lymphocytes Percent Auto 9.3 % (25-40); Mean Corpuscular HGB Conc 32.5 % (30-36); Mean Corpuscular Hemoglobin 27.6 PG (26-34); Mean Corpuscular Volume 84.8 fL (80-100); Monocytes Absolute Auto 900 /uL (0-900); Monocytes Percent Auto 13.7 % (3-14); Neutrophils Absolute Auto 4700 /uL (1500-7000); Platelet Count 105 X10^3/uL (150-400); Red Blood Cell Count 3.17 X10^6/uL (4.5-5.9); Red Cell Distribution Width 18.3 % (11.6-14.8); White Blood Cell Count 6.4 X10^3/uL (4.5-11.0)
== END ==
PROVIDERS: PCP Family Medicine; Visit Provider Family Medicine
DX: D64.9 Anemia, unspecified (principal)
CPT/HCPCS: 85025

== ENCOUNTER → 2024-04-26 09:01 | Outpatient (CLI) | payer MEDICARE, SELFPAY ==
[2023-06-24 11:13] VITALS: BMI 24.5
[2024-04-28 14:13] LABS: Fecal Immunochemical Test Negative (Negative)
== END ==
PROVIDERS: PCP Family Medicine; Visit Provider Family Medicine
DX: D64.9 Anemia, unspecified (principal); R91.1 Solitary pulmonary nodule; I10 Essential (primary) hypertension; E78.2 Mixed hyperlipidemia; E11.29 Type 2 diabetes mellitus with other diabetic kidney complication; R80.9 Proteinuria, unspecified; K76.6 Portal hypertension; I25.10 Atherosclerotic heart disease of native coronary artery without angina pectoris; E11.9 Type 2 diabetes mellitus without complications; Z95.818 Presence of other cardiac implants and grafts
CPT/HCPCS: 82274

== ENCOUNTER → 2024-05-16 12:55 | Outpatient (CLI) | payer MEDICARE, SELFPAY ==
[2023-06-24 11:13] VITALS: BMI 24.5
[2024-05-16 21:02] LABS: Add Manual Diff / Slide Review NO; Basophils Absolute Auto 100 /uL (0-100); Basophils Percent Auto 0.9 % (0-2); Eosinophils Absolute Auto 100 /uL (0-450); Eosinophils Percent Auto 2.3 % (2-4); Hemoglobin 8.4 g/dL (13.5-17.5); Lymphocytes Absolute Auto 900 /uL (1100-4500); Lymphocytes Percent Auto 16.7 % (25-40); Mean Corpuscular HGB Conc 32.1 % (30-36); Mean Corpuscular Hemoglobin 27.7 PG (26-34); Mean Corpuscular Volume 86.2 fL (80-100); Monocytes Absolute Auto 800 /uL (0-900); Monocytes Percent Auto 13.6 % (3-14); Neutrophils Absolute Auto 3700 /uL (1500-7000); Neutrophils Percent Auto 66.5 % (50-75); Platelet Count 153 X10^3/uL (150-400); Red Blood Cell Count 3.02 X10^6/uL (4.5-5.9); Red Cell Distribution Width 18.2 % (11.6-14.8); White Blood Cell Count 5.6 X10^3/uL (4.5-11.0)
[2024-05-16 21:13] LABS: Alanine Aminotransferase 21 IU/L (<50); Albumin 3.9 g/dL (3.5-5.0); Albumin Globulin Ratio 1.2 (1.0-2.8); Alkaline Phosphatase 63 U/L (38-126); Aspartate Aminotransferase 94 IU/L (17-59); Bilirubin Total 0.8 mg/dL (0.2-1.3); Blood Urea Nitrogen 19 mg/dL (9-20); Calcium 8.5 mg/dL (8.4-10.2); Carbon Dioxide 22 mmol/L (22-32); Chloride 104 mmol/L (98-107); Estimated Glomerular Filt Rate > 60 mL/min (>60); Globulin 3.2 g/dL (1.7-4.1); Glucose 196 mg/dL (80-110); HEMOLYSIS 17 (0-50); Potassium 4.2 mmol/L (3.4-5.1); Sodium 137 mmol/L (137-145); Total Protein 7.1 g/dL (6.3-8.2)
== END ==
PROVIDERS: PCP Family Medicine; Visit Provider Family Medicine
DX: D64.9 Anemia, unspecified (principal); I10 Essential (primary) hypertension; I73.9 Peripheral vascular disease, unspecified; Z92.3 Personal history of irradiation; Z87.19 Personal history of other diseases of the digestive system; F10.90 Alcohol use, unspecified, uncomplicated
CPT/HCPCS: 80053; 85025

== ENCOUNTER → 2024-05-25 11:02 | Outpatient (CLI) | payer MEDICARE, SELFPAY ==
[2023-06-24 11:13] VITALS: BMI 24.5
[2024-05-25 19:42] LABS: Add Manual Diff / Slide Review NO; Basophils Absolute Auto 100 /uL (0-100); Basophils Percent Auto 1.3 % (0-2); Eosinophils Absolute Auto 100 /uL (0-450); Eosinophils Percent Auto 2.2 % (2-4); Hematocrit 26.9 % (41-53); Hemoglobin 8.6 g/dL (13.5-17.5); Lymphocytes Absolute Auto 500 /uL (1100-4500); Lymphocytes Percent Auto 9.5 % (25-40); Mean Corpuscular HGB Conc 31.9 % (30-36); Mean Corpuscular Hemoglobin 26.8 PG (26-34); Mean Corpuscular Volume 83.8 fL (80-100); Monocytes Absolute Auto 800 /uL (0-900); Monocytes Percent Auto 15.4 % (3-14); Neutrophils Absolute Auto 3600 /uL (1500-7000); Neutrophils Percent Auto 71.6 % (50-75); Platelet Count 133 X10^3/uL (150-400); Red Blood Cell Count 3.21 X10^6/uL (4.5-5.9); Red Cell Distribution Width 18.1 % (11.6-14.8)
[2024-05-25 19:55] LABS: Alanine Aminotransferase 21 IU/L (<50); Albumin 4.1 g/dL (3.5-5.0); Albumin Globulin Ratio 1.2 (1.0-2.8); Alkaline Phosphatase 54 U/L (38-126); Aspartate Aminotransferase 60 IU/L (17-59); BUN Creatinine Ratio 19.8 (6-22); Bilirubin Total 1.2 mg/dL (0.2-1.3); Blood Urea Nitrogen 22 mg/dL (9-20); Calcium 8.9 mg/dL (8.4-10.2); Carbon Dioxide 21 mmol/L (22-32); Chloride 104 mmol/L (98-107); Estimated Glomerular Filt Rate > 60 mL/min (>60); Globulin 3.3 g/dL (1.7-4.1); Glucose 127 mg/dL (80-110); HEMOLYSIS < 15 (0-50); Potassium 4.7 mmol/L (3.4-5.1); Sodium 136 mmol/L (137-145); Total Protein 7.4 g/dL (6.3-8.2)
== END ==
PROVIDERS: PCP Family Medicine; Visit Provider Family Medicine
DX: D64.9 Anemia, unspecified (principal); I10 Essential (primary) hypertension; F10.90 Alcohol use, unspecified, uncomplicated; Z92.3 Personal history of irradiation; Z87.19 Personal history of other diseases of the digestive system; I73.9 Peripheral vascular disease, unspecified
CPT/HCPCS: 80053; 85025

== ENCOUNTER → 2024-06-30 08:43 | Outpatient (CLI) | payer MEDICARE, SELFPAY ==
[2024-06-15 08:55] VITALS: BMI 24.5
[2024-06-30 18:41] LABS: Add Manual Diff / Slide Review NO; Basophils Absolute Auto 0 /uL (0-100); Basophils Percent Auto 0.9 % (0-2); Eosinophils Absolute Auto 100 /uL (0-450); Eosinophils Percent Auto 2.6 % (2-4); Hematocrit 29.1 % (41-53); Hemoglobin 9.5 g/dL (13.5-17.5); Lymphocytes Absolute Auto 900 /uL (1100-4500); Mean Corpuscular HGB Conc 32.5 % (30-36); Mean Corpuscular Hemoglobin 26.8 PG (26-34); Mean Corpuscular Volume 82.3 fL (80-100); Monocytes Absolute Auto 600 /uL (0-900); Monocytes Percent Auto 12.4 % (3-14); Neutrophils Absolute Auto 3000 /uL (1500-7000); Neutrophils Percent Auto 65.1 % (50-75); Platelet Count 133 X10^3/uL (150-400); Red Blood Cell Count 3.53 X10^6/uL (4.5-5.9); Red Cell Distribution Width 18.2 % (11.6-14.8); White Blood Cell Count 4.7 X10^3/uL (4.5-11.0)
[2024-06-30 19:17] LABS: HEMOLYSIS < 15 (0-50)
[2024-06-30 19:22] LABS: Iron 44 ug/dL (49-181)
[2024-06-30 19:33] LABS: Alanine Aminotransferase 25 IU/L (<50); Albumin 4.1 g/dL (3.5-5.0); Albumin Globulin Ratio 1.2 (1.0-2.8); Alkaline Phosphatase 71 U/L (38-126); Aspartate Aminotransferase 55 IU/L (17-59); BUN Creatinine Ratio 22.1 (6-22); Bilirubin Total 1.4 mg/dL (0.2-1.3); Blood Urea Nitrogen 25 mg/dL (9-20); Calcium 9.4 mg/dL (8.4-10.2); Carbon Dioxide 22 mmol/L (22-32); Chloride 103 mmol/L (98-107); Estimated Glomerular Filt Rate > 60 mL/min (>60); Globulin 3.4 g/dL (1.7-4.1); Glucose 137 mg/dL (80-110); HEMOLYSIS < 15 (0-50); Potassium 4.6 mmol/L (3.4-5.1); Sodium 135 mmol/L (137-145); Total Protein 7.5 g/dL (6.3-8.2)
[2024-06-30 19:37] LABS: Percent Iron Saturation 10 % (20-50); Total Iron Binding Capacity 436 ug/dL (261-462); Transferrin 341 mg/dL (206-381)
[2024-06-30 20:02] LABS: TSH w/ Reflex to FT4 2.03 uIU/mL (0.47-4.68)
[2024-07-02 19:12] LABS: Vitamin B12 892 pg/mL (239-931)
== END ==
PROVIDERS: PCP Family Medicine; Visit Provider Family Medicine
DX: I48.20 Chronic atrial fibrillation, unspecified (principal); I95.9 Hypotension, unspecified; D64.9 Anemia, unspecified; I10 Essential (primary) hypertension; K76.6 Portal hypertension; K70.30 Alcoholic cirrhosis of liver without ascites; I25.10 Atherosclerotic heart disease of native coronary artery without angina pectoris
CPT/HCPCS: 80053; 82607; 83540; 83550; 84443; 85025

== ENCOUNTER → 2024-08-02 15:11 | Outpatient (CLI) | payer MEDICARE, SELFPAY ==
[2024-06-15 08:55] VITALS: BMI 24.5
== END ==
PROVIDERS: PCP Family Medicine; Visit Provider Physician Assistant Medical
DX: R19.7 Diarrhea, unspecified (principal)
CPT/HCPCS: 87045; 87177; 87324

== ENCOUNTER → 2024-08-08 09:00 | Outpatient (CLI) | payer MEDICARE, SELFPAY ==
[2024-06-15 08:55] VITALS: BMI 24.5
[2024-08-10 16:08] LABS: C difficie Toxins A and B, EIA Negative (Negative)
== END ==
PROVIDERS: PCP Family Medicine; Visit Provider Physician Assistant Medical
DX: R19.7 Diarrhea, unspecified (principal)
CPT/HCPCS: 87324

== ENCOUNTER → 2024-09-04 11:01 | Outpatient (CLI) | payer MEDICARE, SELFPAY ==
[2024-06-15 08:55] VITALS: BMI 24.5
[2024-09-04 19:21] LABS: Add Manual Diff / Slide Review NO; Basophils Absolute Auto 0 /uL (0-100); Basophils Percent Auto 0.8 % (0-2); Eosinophils Absolute Auto 200 /uL (0-450); Eosinophils Percent Auto 2.5 % (2-4); Hematocrit 29.3 % (41-53); Hemoglobin 9.1 g/dL (13.5-17.5); Lymphocytes Absolute Auto 600 /uL (1100-4500); Lymphocytes Percent Auto 10.3 % (25-40); Mean Corpuscular HGB Conc 31.1 % (30-36); Mean Corpuscular Hemoglobin 24.9 PG (26-34); Mean Corpuscular Volume 80.2 fL (80-100); Monocytes Absolute Auto 800 /uL (0-900); Monocytes Percent Auto 12.6 % (3-14); Neutrophils Absolute Auto 4500 /uL (1500-7000); Neutrophils Percent Auto 73.8 % (50-75); Platelet Count 169 X10^3/uL (150-400); Red Blood Cell Count 3.65 X10^6/uL (4.5-5.9); White Blood Cell Count 6.1 X10^3/uL (4.5-11.0)
[2024-09-04 19:36] LABS: Blood Urea Nitrogen 28 mg/dL (9-20); Calcium 9.4 mg/dL (8.4-10.2); Carbon Dioxide 23 mmol/L (22-32); Chloride 104 mmol/L (98-107); Estimated Glomerular Filt Rate 59 mL/min (>60); Glucose 146 mg/dL (80-110); HEMOLYSIS < 15 (0-50); Sodium 135 mmol/L (137-145)
[2024-09-04 19:37] LABS: HEMOLYSIS < 15 (0-50); Iron 121 ug/dL (49-181)
[2024-09-04 19:52] LABS: Percent Iron Saturation 26 % (20-50); Total Iron Binding Capacity 474 ug/dL (261-462); Transferrin 394 mg/dL (206-381)
[2024-09-04 20:40] LABS: Anisocytosis 2+; Schistocytes 1+
[2024-09-04 20:45] LABS: Macrocytosis 1+
== END ==
PROVIDERS: PCP Family Medicine; Visit Provider Family Medicine
DX: K76.6 Portal hypertension (principal); K70.30 Alcoholic cirrhosis of liver without ascites; D64.9 Anemia, unspecified; R18.8 Other ascites; I73.9 Peripheral vascular disease, unspecified; I10 Essential (primary) hypertension
CPT/HCPCS: 80048; 83540; 83550; 85025

== ENCOUNTER → 2024-09-25 13:30 | Outpatient (CLI) | payer MEDICARE, SELFPAY ==
[2024-06-15 08:55] VITALS: BMI 24.5
[2024-09-25 19:03] LABS: Add Manual Diff / Slide Review NO; Basophils Absolute Auto 100 /uL (0-100); Basophils Percent Auto 1.2 % (0-2); Eosinophils Absolute Auto 200 /uL (0-450); Eosinophils Percent Auto 3.5 % (2-4); Hematocrit 30.5 % (41-53); Hemoglobin 9.7 g/dL (13.5-17.5); Lymphocytes Absolute Auto 900 /uL (1100-4500); Lymphocytes Percent Auto 15.9 % (25-40); Mean Corpuscular Volume 81.3 fL (80-100); Monocytes Absolute Auto 800 /uL (0-900); Monocytes Percent Auto 15.4 % (3-14); Neutrophils Absolute Auto 3500 /uL (1500-7000); Platelet Count 163 X10^3/uL (150-400); Red Blood Cell Count 3.75 X10^6/uL (4.5-5.9); Red Cell Distribution Width 23.3 % (11.6-14.8); White Blood Cell Count 5.4 X10^3/uL (4.5-11.0)
[2024-09-25 19:10] LABS: BUN Creatinine Ratio 21.1 (6-22); Blood Urea Nitrogen 30 mg/dL (9-20); Calcium 8.7 mg/dL (8.4-10.2); Carbon Dioxide 23 mmol/L (22-32); Chloride 100 mmol/L (98-107); Estimated Glomerular Filt Rate 52 mL/min (>60); Glucose 95 mg/dL (80-110); HEMOLYSIS 15 (0-50); Potassium 4.8 mmol/L (3.4-5.1); Sodium 136 mmol/L (137-145)
[2024-09-25 19:57] LABS: Anisocytosis 2+
== END ==
PROVIDERS: PCP Family Medicine; Visit Provider Family Medicine
DX: D64.9 Anemia, unspecified (principal)
CPT/HCPCS: 80048; 85025

== ENCOUNTER → 2024-12-22 10:52 | Outpatient (CLI) | payer MEDICARE, SELFPAY ==
[2024-06-15 08:55] VITALS: BMI 24.5
[2024-12-22 18:14] LABS: Add Manual Diff / Slide Review NO; Basophils Absolute Auto 0 /uL (0-100); Basophils Percent Auto 0.8 % (0-2); Eosinophils Absolute Auto 300 /uL (0-450); Eosinophils Percent Auto 3.9 % (2-4); Hematocrit 33.8 % (41-53); Hemoglobin 11.2 g/dL (13.5-17.5); Lymphocytes Absolute Auto 600 /uL (1100-4500); Lymphocytes Percent Auto 8.7 % (25-40); Mean Corpuscular Hemoglobin 31.3 PG (26-34); Mean Corpuscular Volume 94.6 fL (80-100); Monocytes Absolute Auto 500 /uL (0-900); Monocytes Percent Auto 7.8 % (3-14); Neutrophils Absolute Auto 5100 /uL (1500-7000); Neutrophils Percent Auto 78.8 % (50-75); Platelet Count 259 X10^3/uL (150-400); Red Blood Cell Count 3.57 X10^6/uL (4.5-5.9); Red Cell Distribution Width 20.4 % (11.6-14.8); White Blood Cell Count 6.5 X10^3/uL (4.5-11.0)
[2024-12-22 18:17] LABS: Alanine Aminotransferase 33 IU/L (<50); Albumin 4.1 g/dL (3.5-5.0); Albumin Globulin Ratio 1.3 (1.0-2.8); Alkaline Phosphatase 79 U/L (38-126); Aspartate Aminotransferase 52 IU/L (17-59); BUN Creatinine Ratio 13.4 (6-22); Bilirubin Total 1.4 mg/dL (0.2-1.3); Blood Urea Nitrogen 15 mg/dL (9-20); Calcium 8.7 mg/dL (8.4-10.2); Carbon Dioxide 21 mmol/L (22-32); Chloride 103 mmol/L (98-107); Estimated Glomerular Filt Rate > 60 mL/min (>60); Globulin 3.1 g/dL (1.7-4.1); Glucose 130 mg/dL (80-110); HEMOLYSIS < 15 (0-50); Potassium 5.1 mmol/L (3.4-5.1); Sodium 136 mmol/L (137-145); Total Protein 7.2 g/dL (6.3-8.2)
[2024-12-22 18:27] LABS: NT-proBNP (BNP-Adult 18+) 1530 pg/mL (<450)
[2024-12-22 18:48] LABS: TSH w/ Reflex to FT4 2.48 uIU/mL (0.47-4.68)
== END ==
PROVIDERS: PCP Family Medicine; Visit Provider Family Medicine
DX: N17.9 Acute kidney failure, unspecified (principal); D64.9 Anemia, unspecified; R06.02 Shortness of breath; R18.8 Other ascites; I48.91 Unspecified atrial fibrillation; I25.10 Atherosclerotic heart disease of native coronary artery without angina pectoris; R06.00 Dyspnea, unspecified; E78.2 Mixed hyperlipidemia; I10 Essential (primary) hypertension
CPT/HCPCS: 80053; 83880; 84443; 85025

== ENCOUNTER → 2025-01-31 12:34 | Outpatient (CLI) | payer MEDICARE, SELFPAY ==
[2024-06-15 08:55] VITALS: BMI 24.5
[2025-01-31 18:51] LABS: Add Manual Diff / Slide Review NO; Basophils Absolute Auto 0 /uL (0-100); Basophils Percent Auto 0.5 % (0-2); Eosinophils Absolute Auto 200 /uL (0-450); Eosinophils Percent Auto 3.9 % (2-4); Hematocrit 33.5 % (41-53); Hemoglobin 11.5 g/dL (13.5-17.5); Lymphocytes Absolute Auto 700 /uL (1100-4500); Lymphocytes Percent Auto 12.4 % (25-40); Mean Corpuscular HGB Conc 34.3 % (30-36); Mean Corpuscular Hemoglobin 32.9 PG (26-34); Mean Corpuscular Volume 96.1 fL (80-100); Monocytes Absolute Auto 600 /uL (0-900); Monocytes Percent Auto 10.4 % (3-14); Neutrophils Absolute Auto 4300 /uL (1500-7000); Neutrophils Percent Auto 72.8 % (50-75); Platelet Count 149 X10^3/uL (150-400); Red Blood Cell Count 3.48 X10^6/uL (4.5-5.9); Red Cell Distribution Width 17.5 % (11.6-14.8); White Blood Cell Count 5.9 X10^3/uL (4.5-11.0)
[2025-01-31 18:56] LABS: Alanine Aminotransferase 24 IU/L (<50); Albumin 4.2 g/dL (3.5-5.0); Albumin Globulin Ratio 1.3 (1.0-2.8); Alkaline Phosphatase 67 U/L (38-126); Aspartate Aminotransferase 76 IU/L (17-59); BUN Creatinine Ratio 21.7 (6-22); Bilirubin Total 1.2 mg/dL (0.2-1.3); Blood Urea Nitrogen 25 mg/dL (9-20); Calcium 8.7 mg/dL (8.4-10.2); Carbon Dioxide 24 mmol/L (22-32); Chloride 102 mmol/L (98-107); Estimated Glomerular Filt Rate > 60 mL/min (>60); Globulin 3.2 g/dL (1.7-4.1); Glucose 154 mg/dL (80-110); HEMOLYSIS 18 (0-50); Potassium 4.7 mmol/L (3.4-5.1); Sodium 136 mmol/L (137-145); Total Protein 7.4 g/dL (6.3-8.2)
== END ==
PROVIDERS: PCP Family Medicine; Visit Provider Family Medicine
DX: I48.91 Unspecified atrial fibrillation (principal); K70.30 Alcoholic cirrhosis of liver without ascites; I25.10 Atherosclerotic heart disease of native coronary artery without angina pectoris; K76.6 Portal hypertension; I10 Essential (primary) hypertension; E11.9 Type 2 diabetes mellitus without complications
CPT/HCPCS: 80053; 85025

== ENCOUNTER → 2025-04-11 10:25 | Outpatient (CLI) | payer MEDICARE, SELFPAY ==
[2024-06-15 08:55] VITALS: BMI 24.5
[2025-04-11 20:02] LABS: Add Manual Diff / Slide Review NO; Basophils Absolute Auto 0 /uL (0-100); Basophils Percent Auto 0.4 % (0-2); Eosinophils Absolute Auto 100 /uL (0-450); Hemoglobin 12.3 g/dL (13.5-17.5); Lymphocytes Absolute Auto 400 /uL (1100-4500); Lymphocytes Percent Auto 6.3 % (25-40); Mean Corpuscular HGB Conc 34.3 % (30-36); Mean Corpuscular Hemoglobin 34.4 PG (26-34); Mean Corpuscular Volume 100.3 fL (80-100); Monocytes Absolute Auto 600 /uL (0-900); Monocytes Percent Auto 10.3 % (3-14); Neutrophils Absolute Auto 5100 /uL (1500-7000); Platelet Count 124 X10^3/uL (150-400); Red Blood Cell Count 3.59 X10^6/uL (4.5-5.9); Red Cell Distribution Width 16.1 % (11.6-14.8); White Blood Cell Count 6.3 X10^3/uL (4.5-11.0)
[2025-04-11 20:10] LABS: Alanine Aminotransferase 27 IU/L (<50); Albumin 4.4 g/dL (3.5-5.0); Albumin Globulin Ratio 1.5 (1.0-2.8); Alkaline Phosphatase 78 U/L (38-126); Aspartate Aminotransferase 46 IU/L (17-59); BUN Creatinine Ratio 18.5 (6-22); Bilirubin Total 1.4 mg/dL (0.2-1.3); Blood Urea Nitrogen 20 mg/dL (9-20); Calcium 9.2 mg/dL (8.4-10.2); Carbon Dioxide 22 mmol/L (22-32); Chloride 105 mmol/L (98-107); Cholesterol 123 mg/dL (140-199); Estimated Glomerular Filt Rate > 60 mL/min (>60); Glucose 150 mg/dL (70-99); HDL Cholesterol 55 mg/dL (40-60); HEMOLYSIS < 15 (0-50); LDL Cholesterol Calculated 53 mg/dL (<100); Potassium 4.5 mmol/L (3.4-5.1); Sodium 138 mmol/L (137-145); Total Protein 7.4 g/dL (6.3-8.2); Triglycerides 77 mg/dL (35-150)
[2025-04-11 20:11] LABS: HEMOLYSIS < 15 (0-50); Iron 95 ug/dL (49-181)
[2025-04-11 20:35] LABS: Percent Iron Saturation 25 % (20-50); Total Iron Binding Capacity 382 ug/dL (261-462); Transferrin 311 mg/dL (206-381)
[2025-04-11 20:43] LABS: Prostate Specific Antigen Scrn 0.251 ng/mL (0.1-4.0)
== END ==
PROVIDERS: PCP Family Medicine; Visit Provider Family Medicine
DX: Z12.5 Encounter for screening for malignant neoplasm of prostate (principal); I25.10 Atherosclerotic heart disease of native coronary artery without angina pectoris; D64.9 Anemia, unspecified; K70.30 Alcoholic cirrhosis of liver without ascites; N40.1 Benign prostatic hyperplasia with lower urinary tract symptoms; E78.2 Mixed hyperlipidemia; I10 Essential (primary) hypertension; K76.6 Portal hypertension; E11.9 Type 2 diabetes mellitus without complications
CPT/HCPCS: 80053; 80061; 83540; 83550; 85025; G0103

== ENCOUNTER → 2025-06-26 14:28 | Outpatient (CLI) | payer MEDICARE, SELFPAY ==
[2024-06-15 08:55] VITALS: BMI 24.5
[2025-06-26 19:55] LABS: Hemoglobin A1C% w Est Avg Glu 5.9 % (4.0-6.0)
[2025-06-26 19:56] LABS: Alanine Aminotransferase 26 IU/L (<50); Albumin 3.9 g/dL (3.5-5.0); Albumin Globulin Ratio 1.3 (1.0-2.8); Alkaline Phosphatase 87 U/L (38-126); Blood Urea Nitrogen 20 mg/dL (9-20); Calcium 9.5 mg/dL (8.4-10.2); Carbon Dioxide 21 mmol/L (22-32); Chloride 98 mmol/L (98-107); Estimated Glomerular Filt Rate > 60 mL/min (>60); Globulin 3.1 g/dL (1.7-4.1); Glucose 128 mg/dL (70-99); HEMOLYSIS 46 (0-50); Potassium 4.3 mmol/L (3.4-5.1); Sodium 134 mmol/L (137-145); Total Protein 7.0 g/dL (6.3-8.2)
[2025-06-26 20:05] LABS: Add Manual Diff / Slide Review NO; Hematocrit 47.2 % (41-53); Hemoglobin 15.7 g/dL (13.5-17.5); Lymphocytes Absolute Auto 700 /uL (1100-4500); Mean Corpuscular HGB Conc 33.2 % (30-36); Mean Corpuscular Hemoglobin 33.4 PG (26-34); Mean Corpuscular Volume 100.7 fL (80-100); Platelet Count 111 X10^3/uL (150-400)
== END ==
PROVIDERS: PCP Family Medicine; Visit Provider Family Medicine
DX: Z12.5 Encounter for screening for malignant neoplasm of prostate (principal); N17.9 Acute kidney failure, unspecified; F10.90 Alcohol use, unspecified, uncomplicated; D64.9 Anemia, unspecified; I10 Essential (primary) hypertension; J18.9 Pneumonia, unspecified organism; E11.29 Type 2 diabetes mellitus with other diabetic kidney complication; R80.9 Proteinuria, unspecified
CPT/HCPCS: 80053; 83036; 85025; G0103

== ENCOUNTER 2025-07-22 19:16 | Emergency (ER) | payer MEDICARE, SELFPAY ==
[2024-06-15 08:55] VITALS: BMI 24.5
[2025-07-22] VITALS (27 sets, daily range): BP systolic 69–120; BP diastolic 45–80; PULSE 105–142; RESP 13–33; TEMP 36.4; O2SAT 78–97; BMI 22.0
--- NOTE | 2025-07-22 19:23 | DI.RAD.S_ITS ---
PROCEDURE: XR CHEST 1V INDICATIONS: altered mental status TECHNIQUE: One view of the chest was acquired. COMPARISON: Outside Facility, CT, CT CHEST WO CON, 11/09/2024, 10:33. [facility] ([place]), CR, XR CHEST 2V, 07/04/2025, 12:00. [facility] ([place]), CR, XR CHEST 2V, 06/14/2025, 15:50. FINDINGS: Surgical changes and devices: None. Lungs and pleura: Increased biapical and left mid lung hazy airspace opacities. Retrocardiac consolidation. No pleural effusion. No pneumothorax. Mediastinum: Calcifications of the aortic knob. Changes of aortic valve replacement. Bones and chest wall: No suspicious bony lesions. Overlying soft tissues appear unremarkable. IMPRESSION: Retrocardiac consolidation concerning for pneumonia, possibly aspiration in this patient with altered mental status. Multifocal airspace opacities concerning for superimposed multifocal pneumonia. Dictated by: Aurelio Saleem M.D. on 07/22/2025 at 20:50 Approved by: Aurelio Saleem M.D. on 07/22/2025 at 20:52
--- NOTE | 2025-07-22 19:25 | EKG_ITS ---
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
--- NOTE | 2025-07-22 19:59 | PC.NURSE ---
While assessing pt, L lower leg, ankle, and foot noted to be edematous, painful and cold to touch. Pt states it's been like that for a while and offers he has fallen a lot, also endorsing tenderness to bilateral hip and neck. MD notified.
[2025-07-22 20:01] LABS: Hematocrit 38.5 % (41-53); Hemoglobin 13.0 g/dL (13.5-17.5); Lymphocytes Absolute Auto 500 /uL (1100-4500); Mean Corpuscular HGB Conc 33.7 % (30-36); Mean Corpuscular Hemoglobin 33.7 PG (26-34); Mean Corpuscular Volume 100.1 fL (80-100); Platelet Count 42 X10^3/uL (150-400)
[2025-07-22 20:02] LABS: Lactate (Lactic Acid) 2.5 mmol/L (0.7-2.1)
[2025-07-22 20:03] LABS: Alanine Aminotransferase 31 IU/L (<50); Albumin 3.3 g/dL (3.5-5.0); Albumin Globulin Ratio 1.1 (1.0-2.8); Alkaline Phosphatase 113 U/L (38-126); Blood Urea Nitrogen 61 mg/dL (9-20); Calcium 10.0 mg/dL (8.4-10.2); Carbon Dioxide 22 mmol/L (22-32); Chloride 107 mmol/L (98-107); Creatine Kinase 186 U/L (55-170); Estimated Glomerular Filt Rate > 60 mL/min (>60); Ethanol (ETOH) < 10 mg/dL (<10); Globulin 3.1 g/dL (1.7-4.1); Glucose 154 mg/dL (70-99); HEMOLYSIS 15 (0-50); Potassium 4.4 mmol/L (3.4-5.1); Sodium 140 mmol/L (137-145); Total Protein 6.4 g/dL (6.3-8.2)
[2025-07-22 20:05] LABS: Add Manual Diff / Slide Review SLIDE REVIEW
--- NOTE | 2025-07-22 20:06 | DI.RAD.S_ITS ---
PROCEDURE: XR ANKLE LT MIN 3V INDICATIONS: Pain/swelling TECHNIQUE: 3 views of the ankle were acquired. COMPARISON: None. FINDINGS: Bones: No fractures or dislocations. Ankle mortise is normally aligned. No suspicious bony lesions. Soft tissues: No tibiotalar joint effusion. Achilles tendon appears normal. Soft tissue swelling of the ankle without radiopaque retained foreign body or gas foci. IMPRESSION: No acute bony abnormality or significant effusion. Dictated by: Aurelio Saleem M.D. on 07/22/2025 at 21:05 Approved by: Aurelio Saleem M.D. on 07/22/2025 at 21:06
--- NOTE | 2025-07-22 20:06 | DI.RAD.S_ITS ---
PROCEDURE: XR TIBIA FIBULA LT 2V INDICATIONS: Pain/swelling TECHNIQUE: 2 views of the tibia and fibula were acquired. COMPARISON: None. FINDINGS: Bones: No fractures or dislocations. No suspicious bony lesions. Soft tissues: Vascular calcifications. Chondrocalcinosis of the lateral meniscus. No suspicious soft tissue calcification. IMPRESSION: No acute bony abnormality. Dictated by: Aurelio Saleem M.D. on 07/22/2025 at 21:06 Approved by: Aurelio Saleem M.D. on 07/22/2025 at 21:07
--- NOTE | 2025-07-22 20:06 | DI.RAD.S_ITS ---
PROCEDURE: XR FOOT LT MIN 3V INDICATIONS: Pain/swelling TECHNIQUE: 3 views of the foot were acquired. COMPARISON: None. FINDINGS: Bones: No fractures or dislocations. No suspicious bony lesions. Scattered mild degenerative arthrosis. Soft tissues: No tibiotalar joint effusion. Achilles tendon appears normal. Soft tissue swelling of the ankle without radiopaque retained foreign body or gas foci. IMPRESSION: No acute bony abnormality. Dictated by: Aurelio Saleem M.D. on 07/22/2025 at 21:06 Approved by: Aurelio Saleem M.D. on 07/22/2025 at 21:06
[2025-07-22 20:15] LABS: Troponin I 0.049 ng/mL (0.01-0.034)
[2025-07-22 20:20] LABS: Procalcitonin 0.569 ng/mL (<0.5)
--- NOTE | 2025-07-22 20:30 | DI.US.S_ITS ---
PROCEDURE: US PERIPH VENOUS LOW EXTREM LT INDICATIONS: Pain/Swelling TECHNIQUE: Real-time imaging, as well as color and pulse Doppler interrogation, were performed of the lower extremity deep veins from the inguinal ligament to the popliteal fossa, with documentation of the visualized calf veins. COMPARISON: None. FINDINGS: The common femoral, femoral, popliteal, and the visualized calf veins are normally compressible, and free of intraluminal thrombus. Color and pulse Doppler demonstrate normal phasic intraluminal flow. There is normal augmentation response to distal compression maneuver. IMPRESSION: No findings of left lower extremity deep venous thrombosis. Dictated by: Aurelio Saleem M.D. on 07/22/2025 at 21:28 Approved by: Aurelio Saleem M.D. on 07/22/2025 at 21:29
[2025-07-22 20:48] LABS: RBC Morphology Normal Morphology
[2025-07-22 20:57] LABS: Influenza A - CEPHEID Flu A NEGATIVE (NEGATIVE); Influenza B - CEPHEID Flu B NEGATIVE (NEGATIVE)
[2025-07-22 21:02] LABS: COVID-19 CEPHEID 4-PLEX PCR Negative (Negative)
--- NOTE | 2025-07-22 21:15 | ED.GENADULT ---
HPI - General Adult General Chief complaint: Altered Mental Status Stated complaint: Weakness Time Seen by Provider: 07/22/25 19:48 Source: EMS Mode of arrival: EMS History of Present Illness HPI narrative: 75-year-old male with COPD, history of atrial fibrillation, TAVR, watchman, diabetes mellitus, lung cancer, peripheral artery disease, apparently has used oxygen in the past but unclear if he is still using oxygen, per triage note had generalized weakness today and was unable to get out of bed, called 911, atrial fibrillation with rapid ventricular rate noted by EMS, increased work of breathing, increased shortness of breath. Denies chest pain. Complains of chronic shortness of breath recently increased last few days. States that he had pneumonia about 2 months ago that was treated with antibiotics, no current oral antibiotics. He has had fluid on the lungs before, worried that he might need to have fluid taken out of his lungs. Also admits to recent fall tripping and injuring his left foot and ankle a few days ago, with scrapes to his left leg. Denied hitting his face or head, denies neck pain. Related Data Home Medications ?Medication ?Instructions ?Recorded ?Confirmed ascorbic acid (vitamin C) 1,000 mg 500 mg PO BID 06/08/22 06/14/25 tablet aspirin 81 mg tablet,delayed 81 mg PO DAILY 06/08/22 06/14/25 release multivitamin 1 tab PO QAM 12/18/24 06/14/25 Previous Rx's ?Medication ?Instructions ?Recorded tamsulosin 0.4 mg capsule 0.4 mg PO BEDTIME #90 caps 05/29/24 metoprolol succinate 50 mg 50 mg PO BID #180 tabs 03/07/25 tablet,extended release 24 hr (Toprol XL) spironolactone 25 mg tablet 25 mg PO DAILY #20 tabs 06/08/25 guaifenesin 1,200 mg tablet, 1,200 mg PO BID #30 tabs 07/04/25 extended release 12 hr (Mucinex) ipratropium 0.5 mg-albuterol 3 mg 3 ml inhalation Q4-6H PRN 07/19/25 (2.5 mg base)/3 mL nebulization shortness of breath or wheezing soln #180 mL nebulizer #1 ea 07/19/25 mirtazapine 15 mg tablet 15 mg PO BEDTIME #90 tabs 07/20/25 morphine 15 mg immediate release 15 mg PO Q6H PRN pain #56 tabs 07/20/25 tablet Allergies Allergy/AdvReac Type Severity Reaction Status Date / Time No Known Drug Allergies Allergy Verified 07/22/25 19:24 Patient History Medical History (Updated 07/23/25 @ 01:53 by Genaro Leal MD) Cataracts, bilateral (~2020) Melena Hemorrhoids Angiodysplasia of colon Benign neoplasm of ascending colon Rectal polyp Rectal bleed Benign neoplasm of cecum Diverticulosis GI bleed Surgical History (Updated 04/05/24 @ 11:11 by Flip Marroquin MD) Peripheral vascular angioplasty status with implants and grafts H/O endoscopy H/O colonoscopy History of back surgery History of shoulder surgery History of knee replacement Family History Father CVA (cerebral vascular accident) Myocardial infarct Mother Diabetes mellitus Social History household members: spouse alcohol intake: current tobacco type: cigarettes alcohol intake frequency: 3 or more drinks per day Exam Narrative Exam Narrative: GENERAL: Well-developed patient, in mild distress. HEAD: Atraumatic. Normocephalic. EYES: Pupils equal round and reactive. Extraocular motions intact. No scleral icterus. No injection or drainage. ENT: Nose without bleeding, purulent drainage. Throat without erythema, tonsillar hypertrophy or exudate. Airway patent. NECK: Trachea midline. Non tender CARDIOVASCULAR: Irregularly irregular with fast rate, without murmurs, gallops, or rubs. RESPIRATORY: Clear to auscultation. Breath sounds equal bilaterally. No wheezes, rales, or rhonchi. GASTROINTESTINAL: Abdomen soft, non-tender, nondistended. EXTREMITIES: Slight swelling to left ankle and foot, with small abrasions to the left foreleg. BACK: Nontender without deformity or crepitance. No flank tenderness. NEURO: AOx3. Motor functions grossly nonfocal. SKIN: No rash or erythema of visible areas Initial Vital Signs Initial Vital Signs: Vital Signs Pulse Rate 135 H 07/22/25 19:21 Respiratory Rate 26 H 07/22/25 19:21 Pulse Oximetry 94 07/22/25 19:21 Course Orders Ordered: Discontinued Medications Hydrocodone Bitart/Acetaminophen (Hydrocodone/Acet 5/325 Prepack) 1 bottle MISC DIRECTED ONE Stop: 07/22/25 23:15 Digoxin (Digoxin 500 Mcg/2 Ml Ampul) 500 mcg IV NOW ONE Stop: 07/23/25 00:35 Last Admin: 07/23/25 01:22 Dose: 500 mcg Documented By: [facility] Diltiazem HCl (Diltiazem 25 Mg/5 Ml Sdv) 20 mg IV NOW ONE Stop: 07/22/25 21:28 Last Admin: 07/22/25 21:44 Dose: 20 mg Documented By: [facility] Doxycycline Hyclate (Doxycycline Hyclate 100 Mg Tablet) 100 mg PO NOW ONE Stop: 07/22/25 21:17 Last Admin: 07/22/25 21:33 Dose: 100 mg Documented By: [facility] Ceftriaxone Sodium 1,000 mg/ (Sodium Chloride) 100 mls @ 200 mls/hr IV NOW ONE Stop: 07/22/25 21:17 Last Infusion: 07/22/25 22:27 Dose: Infused Documented By: [facility] Admin: 07/22/25 21:28 Dose: 200 mls/hr Documented By: [facility] Sodium Chloride (Normal Saline 0.9%) 1,000 mls @ 1,000 mls/hr IV BOLUS ONE Stop: 07/22/25 22:17 Last Infusion: 07/22/25 23:15 Dose: Infused Documented By: [facility] Admin: 07/22/25 21:28 Dose: 1,000 mls/hr Documented By: [facility] Diltiazem HCl 125 mg/ Sodium (Chloride) 125 mls @ 5 mls/hr IV TITRATE [facility]; Protocol Last Titration: 07/23/25 01:10 Dose: Infused Documented By: [facility] Titration: 07/22/25 22:35 Dose: 0 mg/hr, 0 mls/hr Documented By: [facility] Titration: 07/22/25 22:10 Dose: 10 mg/hr, 10 mls/hr Documented By: [facility] Admin: 07/22/25 21:38 Dose: 5 mg/hr, 5 mls/hr Documented By: [facility] Sodium Chloride (Normal Saline 0.9%) 1,000 mls @ 1,000 mls/hr IV BOLUS ONE Stop: 07/22/25 23:33 Last Infusion: 07/23/25 01:09 Dose: Infused Documented By: Admin: 07/22/25 22:40 Dose: 1,000 mls/hr Documented By: [facility] Levofloxacin (Levaquin) 750 mg in 150 mls @ 100 mls/hr IV NOW ONE Stop: 07/23/25 00:19 Last Infusion: 07/23/25 01:09 Dose: Infused Documented By: Infusion: 07/22/25 23:56 Dose: 100 mls/hr Documented By: Infusion: 07/22/25 23:33 Dose: 0 mls/hr Documented By: Admin: 07/22/25 23:14 Dose: 100 mls/hr Documented By: [facility] Lidocaine HCl (Lidocaine 2% (Glydo) 6 Ml Gel) 6 ml TOP NOW ONE Stop: 07/23/25 01:20 Last Admin: 07/23/25 01:27 Dose: 6 ml Documented By: [facility] Metoprolol Tartrate (Metoprolol Tartrate 5 Mg/5 Ml Inj) 5 mg IV NOW ONE Stop: 07/22/25 22:47 Last Admin: 07/22/25 22:51 Dose: 5 mg Documented By: [facility] Vital Signs Vital signs: Vital Signs - 8 hr 07/22/25 19:21 07/22/25 19:22 07/22/25 19:22 Temperature Pulse Rate 135 H 136 H Respiratory Rate 26 H 27 H Blood Pressure 109/63 Pulse Oximetry 94 Oxygen Delivery Method Oxygen Flow Rate 07/22/25 19:24 07/22/25 19:30 07/22/25 19:30 Temperature 97.6 F Pulse Rate 140 H 126 H Respiratory Rate 13 18 Blood Pressure 109/63 106/71 Pulse Oximetry 97 97 Oxygen Delivery Method Room Air Oxygen Flow Rate 07/22/25 20:00 07/22/25 20:00 07/22/25 20:30 Temperature Pulse Rate 132 H 135 H Respiratory Rate 20 24 Blood Pressure 108/69 Pulse Oximetry 86 L 89 L Oxygen Delivery Method Room Air Oxygen Flow Rate 07/22/25 20:58 07/22/25 20:58 07/22/25 21:00 Temperature Pulse Rate 120 H 130 H Respiratory Rate 18 25 H Blood Pressure 111/63 Pulse Oximetry 90 L 88 L Oxygen Delivery Method Oxygen Flow Rate 07/22/25 21:30 07/22/25 21:38 07/22/25 21:44 Temperature Pulse Rate 142 H 124 H 132 H Respiratory Rate 28 H Blood Pressure 105/74 105/74 Pulse Oximetry 93 Oxygen Delivery Method Nasal Cannula Oxygen Flow Rate 3 07/22/25 21:44 07/22/25 21:44 07/22/25 22:00 Temperature Pulse Rate 127 H 136 H Respiratory Rate 26 H 31 H Blood Pressure 105/74 Pulse Oximetry 91 87 L Oxygen Delivery Method Oxygen Flow Rate 07/22/25 22:00 07/22/25 22:30 07/22/25 22:30 Temperature Pulse Rate 118 H Respiratory Rate 23 Blood Pressure 119/60 85/60 L Pulse Oximetry Oxygen Delivery Method Oxygen Flow Rate 07/22/25 22:36 07/22/25 22:36 07/22/25 22:41 Temperature Pulse Rate 120 H 126 H Respiratory Rate 26 H 32 H Blood Pressure 81/55 L Pulse Oximetry 87 L 84 L Oxygen Delivery Method Oxygen Flow Rate 07/22/25 22:41 07/22/25 22:42 07/22/25 22:42 Temperature Pulse Rate 129 H Respiratory Rate 33 H Blood Pressure 69/45 L 93/61 Pulse Oximetry 84 L Oxygen Delivery Method Oxygen Flow Rate 07/22/25 22:49 07/22/25 22:49 07/22/25 22:55 Temperature Pulse Rate 124 H 127 H Respiratory Rate 25 H 24 Blood Pressure 82/63 L Pulse Oximetry 83 L 78 L Oxygen Delivery Method Oxygen Flow Rate 07/22/25 22:55 07/22/25 23:00 07/22/25 23:00 Temperature Pulse Rate 118 H Respiratory Rate 26 H Blood Pressure 109/73 108/73 Pulse Oximetry 84 L Oxygen Delivery Method Oxygen Flow Rate 07/22/25 23:15 07/22/25 23:15 07/22/25 23:20 Temperature Pulse Rate 109 H 111 H Respiratory Rate 22 24 Blood Pressure 100/63 Pulse Oximetry 86 L 87 L Oxygen Delivery Method Oxygen Flow Rate 07/22/25 23:20 07/22/25 23:25 07/22/25 23:25 Temperature Pulse Rate 108 H Respiratory Rate 26 H Blood Pressure 101/72 81/61 L Pulse Oximetry 85 L Oxygen Delivery Method Oxygen Flow Rate 07/22/25 23:30 07/22/25 23:40 07/22/25 23:40 Temperature Pulse Rate 105 H 119 H Respiratory Rate 26 H 24 Blood Pressure 120/80 Pulse Oximetry 87 L 89 L Oxygen Delivery Method Oxygen Flow Rate 07/22/25 23:45 07/22/25 23:45 07/22/25 23:50 Temperature Pulse Rate 114 H Respiratory Rate 23 Blood Pressure 116/57 L 119/76 Pulse Oximetry 87 L Oxygen Delivery Method Oxygen Flow Rate 07/22/25 23:50 07/22/25 23:55 07/22/25 23:55 Temperature Pulse Rate 108 H 114 H Respiratory Rate 22 21 Blood Pressure 118/71 Pulse Oximetry 86 L 85 L Oxygen Delivery Method Oxygen Flow Rate 07/23/25 00:00 07/23/25 00:00 07/23/25 00:05 Temperature Pulse Rate 121 H Respiratory Rate 24 Blood Pressure 107/66 117/69 Pulse Oximetry Oxygen Delivery Method Oxygen Flow Rate 07/23/25 00:05 07/23/25 00:10 07/23/25 00:10 Temperature Pulse Rate 119 H 123 H Respiratory Rate 23 23 Blood Pressure 93/54 L Pulse Oximetry Oxygen Delivery Method Oxygen Flow Rate 07/23/25 00:15 07/23/25 00:15 07/23/25 00:20 Temperature Pulse Rate 119 H 120 H Respiratory Rate 28 H 26 H Blood Pressure 91/74 Pulse Oximetry 89 L 83 L Oxygen Delivery Method Oxygen Flow Rate 07/23/25 00:20 07/23/25 00:26 07/23/25 00:26 Temperature Pulse Rate 121 H Respiratory Rate 25 H Blood Pressure 104/65 94/63 Pulse Oximetry 94 Oxygen Delivery Method Non -Rebreather Oxygen Flow Rate 5 07/23/25 00:30 07/23/25 00:31 07/23/25 00:31 Temperature Pulse Rate 130 H 128 H Respiratory Rate 26 H 28 H Blood Pressure 106/61 Pulse Oximetry 81 L 84 L Oxygen Delivery Method Oxygen Flow Rate 07/23/25 00:45 07/23/25 00:45 07/23/25 01:00 Temperature Pulse Rate 115 H 126 H Respiratory Rate 25 H 28 H Blood Pressure 109/75 Pulse Oximetry 93 93 Oxygen Delivery Method Non -Rebreather Oxygen Flow Rate 4 07/23/25 01:02 07/23/25 01:02 07/23/25 01:15 Temperature Pulse Rate 124 H 121 H Respiratory Rate 25 H 25 H Blood Pressure 108/70 Pulse Oximetry 86 L 90 L Oxygen Delivery Method Oxygen Flow Rate 07/23/25 01:15 07/23/25 01:22 07/23/25 01:30 Temperature Pulse Rate 142 H 133 H Respiratory Rate 19 Blood Pressure 110/72 110/72 Pulse Oximetry 93 Oxygen Delivery Method Oxygen Flow Rate 07/23/25 01:31 07/23/25 01:31 07/23/25 01:45 Temperature Pulse Rate 134 H 119 H Respiratory Rate 21 23 Blood Pressure 123/89 Pulse Oximetry 92 87 L Oxygen Delivery Method Oxygen Flow Rate 07/23/25 01:45 Temperature Pulse Rate Respiratory Rate Blood Pressure 122/69 Pulse Oximetry Oxygen Delivery Method Oxygen Flow Rate Medical Decision Making Lab Data Lab results reviewed: Yes I reviewed the patient's lab results. Lab results narrative: POC glucose 118. White blood cell count 9700, hemoglobin 13.0, [place] [address]. Glucose on BNP 154. BUN 61 with creatinine 1.2, serum CO2 22, normal sodium and potassium levels. T bili 2.5, AST 66, ALT 31, alkaline phosphatase 113. Troponin 0.049 indeterminate range similar to previous values last year. Alcohol level negative. COVID influenza RSV negative. Lactate 2.5 mildly elevated. Procalcitonin 0.569 also mildly elevated. 07/22/25 19:44 07/22/25 19:44 Labs: Lab Results 07/22/25 07/22/25 07/22/25 Range/Units 19:44 20:12 21:15 WBC 9.7 (4.5-11.0) X10^3/uL RBC 3.85 L (4.5-5.9) X10^6/uL Hgb 13.0 L (13.5-17.5) g/dL Hct 38.5 L (41-53) % MCV 100.1 H (80-100) fL MCH 33.7 (26-34) PG MCHC 33.7 (30-36) % RDW 16.7 H (11.6-14.8) % Plt Count 42 L (150-400) X10^3/uL Neut % (Auto) 83.9 H (50-75) % Lymph % (Auto) 5.2 L (25-40) % Boyd % (Auto) 9.2 (3-14) % Eos % (Auto) 1.0 L (2-4) % Baso % (Auto) 0.7 (0-2) % Neut # (Auto) 8100 H (4665-0282) /uL Lymph # (Auto) 500 L (2028-0910) /uL Boyd # (Auto) 900 (0-900) /uL Eos # (Auto) 100 (0-450) /uL Baso # (Auto) 100 (0-100) /uL Platelet Estimate Decreased on smear Clumped Platelets RBC Morphology Normal morphology ABG Sample Site ABG pH (7.35-7.45) ABG pCO2 (35-45) mmHg ABG pO2 (80-100) mmHg ABG HCO3 (23-27) mmol/L ABG Total CO2 (23-27) mmol/L ABG O2 Saturation (95-100) % ABG Base Excess (-2-3) mmol/L Raúl Test O2 Delivery Device FiO2 % % Sodium 140 (137-145) mmol/L Potassium 4.4 (3.4-5.1) mmol/L Chloride 107 (98-107) mmol/L Carbon Dioxide 22 (22-32) mmol/L BUN 61 H (9-20) mg/dL Creatinine 1.21 (0.66-1.25) mg/dL Estimated GFR > 60 (>60) mL/min BUN/Creatinine Ratio 50.4 H (6-22) Glucose 154 H (70-99) mg/dL Lactate 2.5 H (0.7-2.1) mmol/L Calcium 10.0 (8.4-10.2) mg/dL Total Bilirubin 2.5 H (0.2-1.3) mg/dL AST 66 H (17-59) IU/L ALT 31 (<50) IU/L Alkaline Phosphatase 113 (38-126) U/L Total Creatine Kinase 186 H (55-170) U/L Troponin I 0.049 H (0.01-0.034) ng/mL NT-Pro-B Natriuret Pep 7600 H (<450) pg/mL Total Protein 6.4 (6.3-8.2) g/dL Albumin 3.3 L (3.5-5.0) g/dL Globulin 3.1 (1.7-4.1) g/dL Albumin/Globulin Ratio 1.1 (1.0-2.8) Procalcitonin 0.569 H (<0.5) ng/mL Urine Color Yellow Urine Appearance Clear Urine pH 5.5 (4.5-8.0) Ur Specific [place] 1.020 (1.000-1.035) Urine Protein Trace H (Negative) Urine Glucose (UA) Negative (Negative) g/dL Urine Ketones Trace H (NEGATIVE) Urine Occult Blood Negative (Negative) Urine Nitrate Negative (Negative) Urine Bilirubin 1+ H (NEGATIVE) Ur Bilirubin Confirm Negative (Negative) Urine Urobilinogen 2.0 H (0.2) E.U./dL Ur Leukocyte Esterase Negative (NEGATIVE) Urine RBC None seen (0-5/HPF) Urine WBC None seen (0-5/HPF) Ur Squamous Epith Cells 0-1 /hpf (0-5/HPF) Urine Bacteria None seen (None) Hyaline Casts 1-5/lpf (None) Ur Culture Indicated? Cult not indicated Vol Urine Centrifuged 10ml (spun) U Opiates 300ng/mL cut Positive H (Negative) Ur Oxycodone Screen Negative (Negative) Urine Methadone Screen Negative (Negative) Ur Barbiturates Screen Negative (Negative) U Tricyclic Antidepress Negative (Negative) Ur Phencyclidine Scrn Negative (Negative) Ur Amphetamines Screen Negative (Negative) U Methamphetamines Scrn Negative (Negative) Ur MDMA Scrn (Ecstasy) Negative (Negative) U Benzodiazepines Scrn Negative (Negative) Urine Cocaine Screen Negative (Negative) U Marijuana (THC) Screen Negative (Negative) Urine Specific [place] Ethyl Alcohol < 10 (<10) mg/dL Ur Creatinine SARS-CoV-2 (PCR) Negative (Negative) Influenza A (RT-PCR) Flu a negative (NEGATIVE) Influenza B (RT-PCR) Flu b negative (NEGATIVE) RSV (PCR) Negative (Negative) 07/22/25 07/22/25 07/23/25 Range/Units 21:15 23:15 00:41 WBC (4.5-11.0) X10^3/uL RBC (4.5-5.9) X10^6/uL Hgb (13.5-17.5) g/dL Hct (41-53) % MCV (80-100) fL MCH (26-34) PG MCHC (30-36) % RDW (11.6-14.8) % Plt Count (150-400) X10^3/uL Neut % (Auto) (50-75) % Lymph % (Auto) (25-40) % Boyd % (Auto) (3-14) % Eos % (Auto) (2-4) % Baso % (Auto) (0-2) % Neut # (Auto) (9215-2163) /uL Lymph # (Auto) (9647-8770) /uL Boyd # (Auto) (0-900) /uL Eos # (Auto) (0-450) /uL Baso # (Auto) (0-100) /uL Platelet Estimate Clumped Platelets RBC Morphology ABG Sample Site Right brachial ABG pH 7.45 (7.35-7.45) ABG pCO2 30.4 L (35-45) mmHg ABG pO2 103 H (80-100) mmHg ABG HCO3 21 L (23-27) mmol/L ABG Total CO2 20 L (23-27) mmol/L ABG O2 Saturation 98 (95-100) % ABG Base Excess -2.2 L (-2-3) mmol/L Raúl Test N/a O2 Delivery Device Oximask FiO2 % 45.0 % % Sodium (137-145) mmol/L Potassium (3.4-5.1) mmol/L Chloride (98-107) mmol/L Carbon Dioxide (22-32) mmol/L BUN (9-20) mg/dL Creatinine (0.66-1.25) mg/dL Estimated GFR (>60) mL/min BUN/Creatinine Ratio (6-22) Glucose (70-99) mg/dL Lactate 2.7 H (0.7-2.1) mmol/L Calcium (8.4-10.2) mg/dL Total Bilirubin (0.2-1.3) mg/dL AST (17-59) IU/L ALT (<50) IU/L Alkaline Phosphatase (38-126) U/L Total Creatine Kinase (55-170) U/L Troponin I (0.01-0.034) ng/mL NT-Pro-B Natriuret Pep (<450) pg/mL Total Protein (6.3-8.2) g/dL Albumin (3.5-5.0) g/dL Globulin (1.7-4.1) g/dL Albumin/Globulin Ratio (1.0-2.8) Procalcitonin (<0.5) ng/mL Urine Color Urine Appearance Urine pH TNP (4.5-8.0) Ur Specific [place] (1.000-1.035) Urine Protein (Negative) Urine Glucose (UA) (Negative) g/dL Urine Ketones (NEGATIVE) Urine Occult Blood (Negative) Urine Nitrate (Negative) Urine Bilirubin (NEGATIVE) Ur Bilirubin Confirm (Negative) Urine Urobilinogen (0.2) E.U./dL Ur Leukocyte Esterase (NEGATIVE) Urine RBC (0-5/HPF) Urine WBC (0-5/HPF) Ur Squamous Epith Cells (0-5/HPF) Urine Bacteria (None) Hyaline Casts (None) Ur Culture Indicated? Vol Urine Centrifuged U Opiates 300ng/mL cut (Negative) Ur Oxycodone Screen (Negative) Urine Methadone Screen (Negative) Ur Barbiturates Screen (Negative) U Tricyclic Antidepress (Negative) Ur Phencyclidine Scrn (Negative) Ur Amphetamines Screen (Negative) U Methamphetamines Scrn (Negative) Ur MDMA Scrn (Ecstasy) (Negative) U Benzodiazepines Scrn (Negative) Urine Cocaine Screen (Negative) U Marijuana (THC) Screen (Negative) Urine Specific [place] TNP Ethyl Alcohol (<10) mg/dL Ur Creatinine TNP SARS-CoV-2 (PCR) (Negative) Influenza A (RT-PCR) (NEGATIVE) Influenza B (RT-PCR) (NEGATIVE) RSV (PCR) (Negative) 07/23/25 Range/Units 00:50 WBC (4.5-11.0) X10^3/uL RBC (4.5-5.9) X10^6/uL Hgb (13.5-17.5) g/dL Hct (41-53) % MCV (80-100) fL MCH (26-34) PG MCHC (30-36) % RDW (11.6-14.8) % Plt Count (150-400) X10^3/uL Neut % (Auto) (50-75) % Lymph % (Auto) (25-40) % Boyd % (Auto) (3-14) % Eos % (Auto) (2-4) % Baso % (Auto) (0-2) % Neut # (Auto) (4759-1295) /uL Lymph # (Auto) (5048-3111) /uL Boyd # (Auto) (0-900) /uL Eos # (Auto) (0-450) /uL Baso # (Auto) (0-100) /uL Platelet Estimate Clumped Platelets RBC Morphology ABG Sample Site ABG pH (7.35-7.45) ABG pCO2 (35-45) mmHg ABG pO2 (80-100) mmHg ABG HCO3 (23-27) mmol/L ABG Total CO2 (23-27) mmol/L ABG O2 Saturation (95-100) % ABG Base Excess (-2-3) mmol/L Raúl Test O2 Delivery Device FiO2 % % Sodium (137-145) mmol/L Potassium (3.4-5.1) mmol/L Chloride (98-107) mmol/L Carbon Dioxide (22-32) mmol/L BUN (9-20) mg/dL Creatinine (0.66-1.25) mg/dL Estimated GFR (>60) mL/min BUN/Creatinine Ratio (6-22) Glucose (70-99) mg/dL Lactate 2.9 H (0.7-2.1) mmol/L Calcium (8.4-10.2) mg/dL Total Bilirubin (0.2-1.3) mg/dL AST (17-59) IU/L ALT (<50) IU/L Alkaline Phosphatase (38-126) U/L Total Creatine Kinase (55-170) U/L Troponin I 0.046 H (0.01-0.034) ng/mL NT-Pro-B Natriuret Pep (<450) pg/mL Total Protein (6.3-8.2) g/dL Albumin (3.5-5.0) g/dL Globulin (1.7-4.1) g/dL Albumin/Globulin Ratio (1.0-2.8) Procalcitonin (<0.5) ng/mL Urine Color Urine Appearance Urine pH (4.5-8.0) Ur Specific [place] (1.000-1.035) Urine Protein (Negative) Urine Glucose (UA) (Negative) g/dL Urine Ketones (NEGATIVE) Urine Occult Blood (Negative) Urine Nitrate (Negative) Urine Bilirubin (NEGATIVE) Ur Bilirubin Confirm (Negative) Urine Urobilinogen (0.2) E.U./dL Ur Leukocyte Esterase (NEGATIVE) Urine RBC (0-5/HPF) Urine WBC (0-5/HPF) Ur Squamous Epith Cells (0-5/HPF) Urine Bacteria (None) Hyaline Casts (None) Ur Culture Indicated? Vol Urine Centrifuged U Opiates 300ng/mL cut (Negative) Ur Oxycodone Screen (Negative) Urine Methadone Screen (Negative) Ur Barbiturates Screen (Negative) U Tricyclic Antidepress (Negative) Ur Phencyclidine Scrn (Negative) Ur Amphetamines Screen (Negative) U Methamphetamines Scrn (Negative) Ur MDMA Scrn (Ecstasy) (Negative) U Benzodiazepines Scrn (Negative) Urine Cocaine Screen (Negative) U Marijuana (THC) Screen (Negative) Urine Specific [place] Ethyl Alcohol (<10) mg/dL Ur Creatinine SARS-CoV-2 (PCR) (Negative) Influenza A (RT-PCR) (NEGATIVE) Influenza B (RT-PCR) (NEGATIVE) RSV (PCR) (Negative) Point of Care Testing Glucose POC 118 Point of care testing: Point of Care Testing Glucose POC 118 Imaging Data Left lower extremity venous Doppler: Radiologist's Impression: [place] [address] Ultrasound Report Signed Patient: Venancio Osullivan MR#: [id number] : 1950 Acct:[id number] Age/Sex: 75 / M Date of Service: 07/22/25 Loc: ED Accession Number: [id number] Procedure: perip venous low extrem lt Ordering Provider: Genaro Leal MD PROCEDURE: PERIP VENOUS LOW EXTREM LT INDICATIONS: Pain/Swelling TECHNIQUE: Real-time imaging, as well as color and pulse Doppler interrogation, were performed of the lower extremity deep veins from the inguinal ligament to the popliteal fossa, with documentation of the visualized calf veins. COMPARISON: None. FINDINGS: The common femoral, femoral, popliteal, and the visualized calf veins are normally compressible, and free of intraluminal thrombus. Color and pulse Doppler demonstrate normal phasic intraluminal flow. There is normal augmentation response to distal compression maneuver. IMPRESSION: No findings of left lower extremity deep venous thrombosis. Dictated by: Aurelio Saleem M.D. on 07/22/2025 at 21:28 Approved by: Aurelio Saleem M.D. on 07/22/2025 at 21:29 Extremity x-ray #1: Radiologist's Impression: [address] [address] XRay Report Signed Patient: Venancio Osullivan MR#: [id number] : 1950 Acct:[id number] Age/Sex: 75 / M Date of Service: 07/22/25 Loc: ED Accession Number: [id number] Procedure: XR tibia fibula LT 2V Ordering Provider: Genaro Leal MD PROCEDURE: XR TIBIA FIBULA LT 2V INDICATIONS: Pain/swelling TECHNIQUE: 2 views of the tibia and fibula were acquired. COMPARISON: None. FINDINGS: Bones: No fractures or dislocations. No suspicious bony lesions. Soft tissues: Vascular calcifications. Chondrocalcinosis of the lateral meniscus. No suspicious soft tissue calcification. IMPRESSION: No acute bony abnormality. Dictated by: Aurelio Saleem M.D. on 07/22/2025 at 21:06 Approved by: Aurelio Saleem M.D. on 07/22/2025 at 21:07 Extremity x-ray #2: Radiologist's Impression: [address] [address] XRay Report Signed Patient: Venancio Osullivan MR#: [id number] : 1950 Acct:[id number] Age/Sex: 75 / M Date of Service: 07/22/25 Loc: ED Accession Number: [id number] Procedure: XR foot LT min 3V Ordering Provider: Genaro Leal MD PROCEDURE: XR FOOT LT MIN 3V INDICATIONS: Pain/swelling TECHNIQUE: 3 views of the foot were acquired. COMPARISON: None. FINDINGS: Bones: No fractures or dislocations. No suspicious bony lesions. Scattered mild degenerative arthrosis. Soft tissues: No tibiotalar joint effusion. Achilles tendon appears normal. Soft tissue swelling of the ankle without radiopaque retained foreign body or gas foci. IMPRESSION: No acute bony abnormality. Dictated by: Aurelio Saleem M.D. on 07/22/2025 at 21:06 Approved by: Aurelio Saleem M.D. on 07/22/2025 at 21:06 Chest x-ray: Radiologist's Impression: [address] [address] XRay Report Signed Patient: Venancio Osullivan MR#: [id number] : 1950 Acct:[id number] Age/Sex: 75 / M Date of Service: 07/22/25 Loc: ED Accession Number: [id number] Procedure: XR chest 1V Ordering Provider: Genaro Leal MD PROCEDURE: XR CHEST 1V INDICATIONS: altered mental status TECHNIQUE: One view of the chest was acquired. COMPARISON: Outside Facility, CT, CT CHEST WO CON, 11/09/2024, 10:33. [facility] ([place]), CR, XR CHEST 2V, 07/04/2025, 12:00. [facility]), CR, XR CHEST 2V, 06/14/2025, 15:50. FINDINGS: Surgical changes and devices: None. Lungs and pleura: Increased biapical and left mid lung hazy airspace opacities. Retrocardiac consolidation. No pleural effusion. No pneumothorax. Mediastinum: Calcifications of the aortic knob. Changes of aortic valve replacement. Bones and chest wall: No suspicious bony lesions. Overlying soft tissues appear unremarkable. IMPRESSION: Retrocardiac consolidation concerning for pneumonia, possibly aspiration in this patient with altered mental status. Multifocal airspace opacities concerning for superimposed multifocal pneumonia. Dictated by: Aurelio Saleem M.D. on 07/22/2025 at 20:50 Approved by: Aurelio Saleem M.D. on 07/22/2025 at 20:52 Extremity x-ray #3: Radiologist's Impression: [address] [address] XRay Report Signed Patient: Venancio Osullivan MR#: [id number] : 1950 Acct:[id number] Age/Sex: 75 / M Date of Service: 07/22/25 Loc: ED Accession Number: [id number] Procedure: XR ankle LT min 3V Ordering Provider: Genaro Leal MD PROCEDURE: XR ANKLE LT MIN 3V INDICATIONS: Pain/swelling TECHNIQUE: 3 views of the ankle were acquired. COMPARISON: None. FINDINGS: Bones: No fractures or dislocations. Ankle mortise is normally aligned. No suspicious bony lesions. Soft tissues: No tibiotalar joint effusion. Achilles tendon appears normal. Soft tissue swelling of the ankle without radiopaque retained foreign body or gas foci. IMPRESSION: No acute bony abnormality or significant effusion. Dictated by: Aurelio Saleem M.D. on 07/22/2025 at 21:05 Approved by: Aurelio Saleem M.D. on 07/22/2025 at 21:06 CTA chest: Radiologist's Impression: [address] [address] [address] Scan Report Signed Patient: Venancio Osullivna MR#: [id number] : 1950 Acct:[id number] Age/Sex: 75 / M Date of Service: 07/22/25 Loc: ED Accession Number: [id number] Procedure: CT angio chest PE protocol Ordering Provider: Genaro Leal MD PROCEDURE: CT ANGIO CHEST PE PROTOCOL INDICATIONS: dyspnea, prior lung cancer XRT TECHNIQUE: After the administration of intravenous contrast, 2 mm thick sections acquired from the pulmonary apices to the posterior costophrenic angles. 3-dimensional maximum intensity projection (MIP) coronal and sagittal reformats were then acquired through the thorax. For radiation dose reduction, the following was used: automated exposure control, adjustment of mA and/or kV according to patient size. COMPARISON: Outside Facility, CT, CT CHEST WO CON, 11/09/2024, 10:33. FINDINGS: Image quality: Diagnostic. Pulmonary arteries: Pulmonary arteries are normal in size, and demonstrate no intraluminal filling defects to suggest central pulmonary embolism. Lower Neck: No enlarged lymph nodes. Thyroid: No thyroid nodules which require sonographic follow up, per consensus guidelines. Axillae: Enlarged 1.2 x 2.8 cm right axillary node (4/53). No left axillary lymphadenopathy. Chest Wall: Unremarkable. Bones: Multilevel degenerative changes throughout the lumbar spine. New subcentimeter sclerotic focus in the right anterior 6th rib (4/88). Lungs and Pleura: Small bilateral pleural effusions. Masslike consolidation in the superior segment of the left lower lobe (5/170). Multifocal subpleural ground-glass opacities in the bilateral lower lobes. New 8 mm solid pulmonary nodule in the lateral basilar segment of the right lower lobe (5/217). New multifocal small, 3-4 mm, pulmonary nodules in the biapical upper lobes (5/43). Post radiation changes in the anterior right upper lobe. Heart: Mild cardiomegaly with biatrial enlargement. Changes of left atrial appendage occlusion device placement. Changes of aortic replacement valve. Thoracic Vessels: No aortic aneurysm. Mediastinum and Ofelia: New right suprahilar lymph nodes measures 3.7 x 2.4 cm enlarged subcarinal 1 cm node (85) prominent AP window nodes and right lower paratracheal nodes which measure up to 1 cm (457). Esophagus: No wall thickening. No hiatal hernia. Upper Abdomen: Cirrhotic liver morphology. IMPRESSION: 1. No pulmonary embolus. 2. Left lower lobe masslike consolidation with new multifocal subcentimeter pulmonary nodules is concerning for recurrent disease. 3. Multifocal ground-glass opacities are concerning for pulmonary edema versus multifocal pneumonia with small bilateral pleural effusions. 4. New right mediastinal and hilar lymphadenopathy is concerning for thierno disease. 5. New sub cm sclerotic focus in the right anterior lateral 6th rib is concerning for osseous metastasis. 6. Recommend follow-up chest CT with contrast following completion of therapy to evaluate for underlying lesion. Dictated by: Aurelio Saleem M.D. on 07/23/2025 at 0:13 Approved by: Aurelio Saleem M.D. on 07/23/2025 at 0:27 ECG Data Attestation: I personally reviewed and interpreted this ECG as follows: Interpretation: 1925, atrial fibrillation with rapid ventricular response, rate 121. No obvious ST segment elevation or depression changes. Some significant artifact lead V3 noted. QRS 74, QTC 329. MDM Narrative Medical decision making narrative: 75-year-old male with history of COPD, TAVR, atrial fibrillation, Watchman, prior GIB no longer on anticoagulation, diabetes, peripheral artery disease, complains of generalized weakness unable to get out of bed per nursing triage notes, increased shortness of breath over baseline, unclear if he is currently using oxygen at home. AFib RVR noted. Normotensive. EKG, chest x-ray, labs pending. Also recent fall with lower extremity pain, XRays ordered at triage. EKG shows atrial fibrillation with rapid response, rate 120s, no obvious ischemic change. Chest x-ray shows pulmonary infiltrates, suspicious for pneumonia. See radiology report. Blood cultures, IV ceftriaxone, oral doxycycline. IV diltiazem bolus with infusion, titrate to ventricular rate control. Initial lab data: POC glucose 118. White blood cell count 9700, hemoglobin 13.0, platelets low 37592. Glucose on BNP 154. BUN 61 with creatinine 1.2, serum CO2 22, normal sodium and potassium levels. T bili 2.5, AST 66, ALT 31, alkaline phosphatase 113. Troponin 0.049 indeterminate range similar to previous values last year. Alcohol level negative. COVID influenza RSV negative. Lactate 2.5 mildly elevated. Procalcitonin 0.56 9 also mildly elevated Left foot, ankle, tib-fib x-ray series, negative for fractures dislocations or acute changes. See radiology reports. Ultrasound left lower extremity negative for DVT. See radiology report. Consider admission, we will discuss case with our hospitalist. 2244, case discussed with hospitalist Dr. Gandara, low blood pressures on diltiazem which is being held, could try metoprolol if blood pressure tolerated. History of complex cardiac care status post TAVR, prior upper GI bleeding on anticoagulation, consider transfer to higher level of care. Low platelets 41,000 new compared to June 2025. Requests broader/additional antibiotic coverage with IV Levaquin, ordered. Prefers patient to be admitted/managed to higher level of care given his complex cardiac history. Possible transfer, we will contact [facility] and/or [place] where he has had some care in the past, per phone call with [facility] 8934, discussed with [facility] and then with [facility] cardiology Dr. Taylor who can consult, agrees with need for transfer to higher level of care at 1 of their campuses. Await call back from hospitalist. 29, case discussed with [facility] hospitalist Dr. Lee who accepts patient for transfer, agrees with holding beta-michi given soft blood pressures, could try digoxin load. We will order IV digoxin 500 mcg. Transfer to [facility] as above. We will arrange transportation. CTA chest result has imported. No PE. Pneumonia again described. Also some ground-glass changes, consider pulmonary edema. See radiology report. IMPRESSION: 1. No pulmonary embolus. 2. Left lower lobe masslike consolidation with new multifocal subcentimeter pulmonary nodules is concerning for recurrent disease. 3. Multifocal ground-glass opacities are concerning for pulmonary edema versus multifocal pneumonia with small bilateral pleural effusions.4. New right mediastinal and hilar lymphadenopathy is concerning for thierno disease.5. New sub cm sclerotic focus in the right anterior lateral 6th rib is concerning for osseous metastasis.6. Recommend follow-up chest CT with contrast following completion of therapy to evaluate for underlying lesion. Pulmonary edema suspected on CTA imaging, we will hold off on further fluid boluses. transfer via [facility] crew to [facility] Time Critical Care Time Critical Care Time: Yes Total Critical Care Time: 40 Attestation: The high probability of a clinically significant, sudden or life threatening deterioration of the [cardiopulmonary, musculoskeletal] system(s) required my full and direct attention, intervention and personal management. The aggregate critical care time was [40] minutes. This time is in addition to time spent performing reported procedures but includes the following: [x] Data Review and interpretation [x] Patient assessment and monitoring of vital signs [x] Documentation [x] Medication orders and management Discharge Plan Departure Patient Disposition: [facility] Clinical Impression: Pneumonia, Atrial fibrillation with rapid ventricular response, Sepsis, Thrombocytopenia Prescriptions: No Action tamsulosin 0.4 mg capsule 0.4 mg PO BEDTIME Qty: 90 3RF multivitamin Tablet 1 tab PO QAM mirtazapine 15 mg tablet 15 mg PO BEDTIME Qty: 90 3RF morphine 15 mg tablet 15 mg PO Q6H PRN (Reason: pain) Qty: 56 0RF Rx Instructions: Must last 2 weeks. Release date 07/20/2025 aspirin 81 mg tablet,delayed release (DR/EC) 81 mg PO DAILY ascorbic acid (vitamin C) 1,000 mg tablet 500 mg PO BID metoprolol succinate [Toprol XL] 50 mg tablet extended release 24 hr 50 mg PO BID Qty: 180 0RF guaifenesin [Mucinex] 1,200 mg tablet extended release 12hr 1,200 mg PO BID Qty: 30 0RF spironolactone 25 mg tablet 25 mg PO DAILY Qty: 20 0RF (DME) nebulizer See Rx Instructions .Route .MEDSUPPLY Qty: 1 0RF Rx Instructions: As directed ipratropium-albuterol 0.5 mg-3 mg(2.5 mg base)/3 mL solution for nebulization 3 ml inhalation Q4-6H PRN (Reason: shortness of breath or wheezing) Qty: 180 3RF Referrals: Flip Marroquin MD [Primary Care Provider, Family Practice]
[2025-07-22 21:27] LABS: Reflexed Lactate in 2 Hours Y
[2025-07-22] MEDS: SODIUM CHLORIDE 0.9% 1,000 ML 1000 ML IV ×2 (21:28→22:40)
[2025-07-22] MEDS: DOXYCYCLINE HYCLATE 100 MG TABLET PO (21:33)
[2025-07-22 21:43] LABS: Appearance Urine UA CLEAR; Bilirubin Urine UA 1+ (NEGATIVE); Color Urine UA YELLOW; Glucose Urine UA NEGATIVE (Negative); Ketones Urine UA TRACE (NEGATIVE); Leukocyte Esterase Urine UA NEGATIVE (NEGATIVE); Nitrite Urine UA NEGATIVE (Negative); Occult Blood Urine UA NEGATIVE (Negative); Protein Urine UA TRACE (Negative); Specific Gravity Urine UA 1.020 (1.000-1.035); Urobilinogen Urine UA 2.0 E.U./dL (0.2); pH Urine UA 5.5 (4.5-8.0)
[2025-07-22 21:47] LABS: UR Morphine/Opiate cutoff 300 Positive (Negative); Urine MDMA Negative (Negative); Urine Methamphetamines Negative (Negative); Urine Tetrahydrocannabinol Negative (Negative); Urine Tricyclic Antidepressant Negative (Negative)
[2025-07-22 21:50] LABS: Ictotest Urine Negative (Negative)
[2025-07-22 21:51] LABS: Culture Indicated Urine Cult Not Indicated
--- NOTE | 2025-07-22 22:45 | PC.NURSE ---
Pt's has been called for an update. This RN inquired about whether pt is confused at baseline. denies and states pt is usually AOx4. Pt remains alert to self and birthday. Able to report he is in a hospital but unable to expand on reason for visit or establish any timeline. Pt continuously pulls at IV lines and removes oxygen mask. 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 Pt requires constant redirection and is receiving 1:1 monitoring from this RN.
[2025-07-22] MEDS: METOPROLOL TARTRATE 5 MG/5 ML INJ IV (22:51)
--- NOTE | 2025-07-22 22:55 | DI.CT.S_ITS ---
PROCEDURE: CT ANGIO CHEST PE PROTOCOL INDICATIONS: dyspnea, prior lung cancer XRT TECHNIQUE: After the administration of intravenous contrast, 2 mm thick sections acquired from the pulmonary apices to the posterior costophrenic angles. 3-dimensional maximum intensity projection (MIP) coronal and sagittal reformats were then acquired through the thorax. For radiation dose reduction, the following was used: automated exposure control, adjustment of mA and/or kV according to patient size. COMPARISON: Outside Facility, CT, CT CHEST WO CON, 11/09/2024, 10:33. FINDINGS: Image quality: Diagnostic. Pulmonary arteries: Pulmonary arteries are normal in size, and demonstrate no intraluminal filling defects to suggest central pulmonary embolism. Lower Neck: No enlarged lymph nodes. Thyroid: No thyroid nodules which require sonographic follow up, per consensus guidelines. Axillae: Enlarged 1.2 x 2.8 cm right axillary node (4/53). No left axillary lymphadenopathy. Chest Wall: Unremarkable. Bones: Multilevel degenerative changes throughout the lumbar spine. New subcentimeter sclerotic focus in the right anterior 6th rib (4/88). Lungs and Pleura: Small bilateral pleural effusions. Masslike consolidation in the superior segment of the left lower lobe (5/170). Multifocal subpleural ground- glass opacities in the bilateral lower lobes. New 8 mm solid pulmonary nodule in the lateral basilar segment of the right lower lobe (5/217). New multifocal small, 3-4 mm, pulmonary nodules in the biapical upper lobes (5/43). Post radiation changes in the anterior right upper lobe. Heart: Mild cardiomegaly with biatrial enlargement. Changes of left atrial appendage occlusion device placement. Changes of aortic replacement valve. Thoracic Vessels: No aortic aneurysm. Mediastinum and Ofelia: New right suprahilar lymph nodes measures 3.7 x 2.4 cm enlarged subcarinal 1 cm node (4/85) prominent AP window nodes and right lower paratracheal nodes which measure up to 1 cm (4/57). Esophagus: No wall thickening. No hiatal hernia. Upper Abdomen: Cirrhotic liver morphology. IMPRESSION: 1. No pulmonary embolus. 2. Left lower lobe masslike consolidation with new multifocal subcentimeter pulmonary nodules is concerning for recurrent disease. 3. Multifocal ground-glass opacities are concerning for pulmonary edema versus multifocal pneumonia with small bilateral pleural effusions. 4. New right mediastinal and hilar lymphadenopathy is concerning for thierno disease. 5. New sub cm sclerotic focus in the right anterior lateral 6th rib is concerning for osseous metastasis. 6. Recommend follow-up chest CT with contrast following completion of therapy to evaluate for underlying lesion. Dictated by: Aurelio Saleem M.D. on 07/23/2025 at 0:13 Approved by: Aurelio Saleem M.D. on 07/23/2025 at 0:27
[2025-07-22 23:36] LABS: Lactate 2HR (Lactic Acid Rflx) 2.7 mmol/L (0.7-2.1)
[2025-07-22 23:58] LABS: NT-proBNP (BNP-Adult 18+) 7600 pg/mL (<450)
[2025-07-23] VITALS (16 sets, daily range): BP systolic 91–123; BP diastolic 54–89; PULSE 115–142; RESP 19–28; O2SAT 81–94
--- NOTE | 2025-07-23 00:12 | PC.NURSE ---
Unable to obtain accurate SPO2 read on monitor. This RN has attempted multiple sites w/o readable pleth. RT has been called and evaluated pt and endorsed difficulty in monitoring pt's sats through pulse oxymeter. MD is aware. Verbal order for ABG.
[2025-07-23 00:46] LABS: Blood Gas Collection Site Right Brachial; Delivery System Oximask; HCO3 ABG 21 mmol/L (23-27); Oxygen Saturation ABG 98 % (95-100); PCO2 ABG 30.4 mmHg (35-45); PO2 ABG 103 mmHg (80-100); TCO2 ABG 20 mmol/L (23-27)
[2025-07-23] MEDS: DIGOXIN 500 MCG/2 ML AMPUL IV (01:22)
[2025-07-23 01:25] LABS: Lactate (Lactic Acid) 2.9 mmol/L (0.7-2.1)
[2025-07-23] MEDS: LIDOCAINE 2% (GLYDO) 6 ML GEL TOP (01:27)
[2025-07-23 01:38] LABS: Troponin I 0.046 ng/mL (0.01-0.034)
--- NOTE | 2025-07-23 01:45 | PC.NURSE ---
Left message with [facility] to give update on transfer status, unable to connect.
--- NOTE | 2025-07-23 02:05 | PC.NURSE ---
Report called to CARINA Costello @ [phone], [address], room 331.
[2025-07-23 02:39] LABS: Reflexed Lactate in 2 Hours Y
== END 2025-07-23 02:29 | disposition short-term general hospital (02) ==
PROVIDERS: Emergency Provider Emergency Medicine; PCP Family Medicine
DX: J18.9 Pneumonia, unspecified organism (principal); I48.20 Chronic atrial fibrillation, unspecified; A41.9 Sepsis, unspecified organism; D69.6 Thrombocytopenia, unspecified; J44.9 Chronic obstructive pulmonary disease, unspecified; Z95.818 Presence of other cardiac implants and grafts
CPT/HCPCS: 36415; 36600; 51798; 71045; 71275; 73590; 73610; 73630; 80053; 80305; 80320; 81001; 82550; 82805; 82962; 83605; 83880; 84145; 84484; 85025; 87040; 87637; 93005; 93971; 96365; 96366; 96367; 96368; 96375; 99285; 99291; J0696; J1160; J1956; J7030; J7050; Q9967